=== PATIENT | male | born 1960 | race African-American/Black ===

== ENCOUNTER 2016-04-01 02:59 | Emergency (ER) | payer OTHER ==
[~2016-04-01] VITALS: Ht 170.2 cm; Wt 75.3 kg
[~2016-04-01 02:59] MED LIST: ACETAMINOPHEN-1 EAC1 ORAL; AMITRIPTYLINE100 MG ORAL; AMLODIPINE BES2.5 MG ORAL; ATIVAN1 MG ORAL; BACTRIM DS TAB1 EAC1 ORAL; CEPHALEXIN500 MG ORAL; CIPRO500 MG PO; CIPROFLOXACIN500 M2 ORAL; CLEOCIN150 MG ORAL; COLACE100 MG ORAL; COMPAZINE10 MG ORAL; FAMOTIDINE20 MG ORAL; FLEET ENEMA133 ML RECTAL; GABAPENTIN100 MG ORAL; HYDROCODON-ACE1 EA15 ORAL; KEFLEX500 MG ORAL; LORAZEPAM1 MG ORAL; LORAZEPAM2 MG ORAL; NEURONTIN300 MG ORAL; NITROFURANTOIN100 M2 ORAL; NORCO 10/3251 EA ORAL; NORCO 5-325 TA1 EACH ORAL; ONDANSETRON ODT4 MG ORAL; PHENERGAN25 M1 ORAL; RANITIDINE HCL150 MG ORAL; TRAMADOL HCL50 MG ORAL; TYLENOL EXTRA500 MG ORAL; TYLENOL WITH C1 EAC2 PO; ZOFRAN ODT4 MG ORAL; [UNRECOGNIZED DRUG - OTHER] MC
[2016-04-01] MEDS ORDERED: LYRICA75 M1 ORAL (03:15)
[2016-04-01] MEDS ORDERED: TIZANIDINE HCL4 MG ORAL (03:15)
[2016-04-01] MEDS ORDERED: Morphine Sulfate 10mg/ml Inj IM ONE (03:45)
--- NOTE | 2016-04-01 03:50 | Emergency Room Report ---
History of Present Illness General Chief Complaint: Pain Source: Patient Present Illness HPI Patient present with complaints of neuropathy and pain to both of his legs Patient also has lower back pain and feels that he likely has a bladder infection Patient states that he gets an infection every 6 months He has difficulty tried to get a clean catheter Denies any vomiting denies any chest pain or shortness of breath pain to the lower back as 6/10 sharp and crampy in nature There is also sensation of burning with catheterization Allergies: Coded Allergies: OMEPRAZOLE (Unverified Allergy, Unknown, 01/23/15) Patient History Past Medical History: see triage record Pertinent Family History: none Reviewed Nursing Documentation: PMH: Agreed, PSxH: Agreed Nursing Documentation-PMH Hx Hypertension: Yes Hx Cancer: No Hx Gastrointestinal Problems: No Hx Weakness: Yes - BLE Review of Systems All Other Systems: negative except mentioned in HPI Physical Exam Vital Signs Date Time Temp Pulse Resp B/P Pulse Ox O2 Delivery O2 Flow Rate FiO2 04/01/16 03:02 98.8 96 18 185/74 97 Room Air Sp02 EP Interpretation: reviewed, normal General Appearance: well appearing, no apparent distress Head: normocephalic, atraumatic Eyes: bilateral eye EOMI, bilateral eye PERRL ENT: hearing grossly normal, normal pharynx, TMs + canals normal, uvula midline Neck: full range of motion, supple, no meningismus, no bony tend Respiratory: lungs clear, normal breath sounds, no rhonchi, no respiratory distress, no retraction, no accessory muscle use Cardiovascular #1: normal peripheral pulses, regular rate, rhythm, no edema, no gallop, no JVD, no murmur Gastrointestinal: normal bowel sounds, non tender, soft, no mass, no organomegaly, non-distended, no guarding, no hernia, no pulsatile mass, no rebound Genitourinary: no CVA tenderness Musculoskeletal: other - patient is paraplegic Neurologic: oriented x3, responsive, sensory intact Psychiatric: mood/affect normal Skin: normal color, no rash, warm/dry, palpation normal Lymphatic: normal inspection, no adenopathy Medical Decision Making Diagnostic Impression: Primary Impression: Neurogenic bladder Additional Impression: Neuropathy ER Course Multiple differentials are considered Patient's urine sample however is clean without any evidence of blood or infectious pathology Patient had been given IM injection of pain medication is doing significantly better I did also place the patient on Neurontin to see how this would help with his neuropathic pain The patient requires close outpatient follow Labs Test 04/01/16 03:45 Urine Color Pale yellow Urine Appearance Clear Urine pH 6 (4.5-8.0) Urine Specific [place] 1.010 (1.005-1.035) Urine Protein Negative (NEGATIVE) Urine Glucose (UA) Negative (NEGATIVE) Urine Ketones Negative (NEGATIVE) Urine Occult Blood Negative (NEGATIVE) Urine Nitrite Negative (NEGATIVE) Urine Bilirubin Negative (NEGATIVE) Urine Urobilinogen Normal MG/DL (0.0-1.0) Urine Leukocyte Esterase Negative (NEGATIVE) Last Vital Signs Date Time Temp Pulse Resp B/P Pulse Ox O2 Delivery O2 Flow Rate FiO2 04/01/16 03:02 98.8 96 18 185/74 97 Room Air Status: improved Disposition: HOME, SELF-CARE Condition: Improved Scripts Gabapentin* (NEURONTIN*) 100 Mg Capsule 300 MG ORAL THREE TIMES A DAY for 7 Days, CAP Prov: RODNEY JUNIOR D.O. 04/01/16 Referrals: NON PHYSICIAN (PCP) Additional Instructions: Patient is provided with the discharge instructions notified to follow up with primary doctor in the next 2-3 days otherwise return to the er with any worsening symptoms. RODNEY JUNIOR D.O. Apr 01, 2016 03:50
[2016-04-01 03:58] LABS: APPEARANCE,URINE CLEAR; KETONES,URINE NEGATIVE (NEGATIVE); LEUKOCYTE ESTERASE ,URINE NEGATIVE (NEGATIVE); NITRITE,URINE NEGATIVE (NEGATIVE); PH,URINE 6 (4.5-8.0); PROTEIN,URINE NEGATIVE (NEGATIVE); UROBILINOGEN,URINE NORMAL MG/DL (0.0-1.0)
[2016-04-01] MEDS ORDERED: NEURONTIN100 MG ORAL (04:27)
[2016-04-01 04:34] VITALS: BP 185/74
== END 2016-04-01 04:36 | disposition home or self-care (01) ==
LOC: EMR 03:45
DX: G62.9 Polyneuropathy, unspecified (principal); N31.9 Neuromuscular dysfunction of bladder, unspecified; I10 Essential (primary) hypertension; Z88.8 Allergy status to other drugs, medicaments and biological substances
CPT/HCPCS: 81003; 96372; 99283; J2270

== ENCOUNTER 2016-04-11 21:59 | Emergency (ER) | payer OTHER ==
[~2016-04-11] VITALS: Ht 170.2 cm; Wt 75.3 kg
[~2016-04-11 21:59] MED LIST changes: +LYRICA75 M1 ORAL; +NEURONTIN100 MG ORAL; +TIZANIDINE HCL4 MG ORAL
[2016-04-11 22:13] VITALS: BP 125/65
[2016-04-11] MEDS ORDERED: Ketorolac 60mg Inj IM ONE (22:45)
[2016-04-11] MEDS ORDERED: VALIUM5 MG ORAL (22:55)
[2016-04-11 23:03] VITALS: BP 132/77
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
== END 2016-04-11 23:03 | disposition home or self-care (01) ==
LOC: EMR 22:36
DX: M62.838 Other muscle spasm (principal); M79.605 Pain in left leg; M79.604 Pain in right leg; I10 Essential (primary) hypertension
CPT/HCPCS: 96372; 99283

== ENCOUNTER 2016-05-22 18:40 | Inpatient (IN) | payer OTHER ==
[~2016-05-22] VITALS: Ht 170.2 cm; Wt 80.7 kg
[~2016-05-22 18:40] MED LIST changes: +VALIUM5 MG ORAL
[2016-05-22 19:05] VITALS: BP 112/76
[2016-05-22] MEDS ORDERED: Morphine Sulfate 4mg/ml Inj IVP ONE ×2 (19:15→20:45)
[2016-05-22] MEDS ORDERED: Ketorolac 30mg Inj IV ONE (19:15)
[2016-05-22] MEDS ORDERED: LORazepam Inj 2mg/ml 1ml IV ONE (19:15)
[2016-05-22 20:27] LABS: MEAN CORPUSCULAR HEMOGLOBIN 32.5 PG (27.0-31.0); MEAN CORPUSCULAR HGB CONC 33.8 G/DL (32.0-36.0); MEAN CORPUSCULAR VOLUME 96 FL (80-99); MEAN PLATELET VOLUME 7.9 FL (6.5-10.1); PLATELET COUNT 198 K/UL (150-450); RED BLOOD COUNT 3.72 M/UL (4.70-6.10); RED CELL DISTRIBUTION WIDTH 17.7 % (11.6-14.8)
[2016-05-22 20:33] LABS: ALANINE AMINOTRANSFERASE 16 U/L (3-41); ALBUMIN/GLOBULIN RATIO 0.9 (1.0-2.7); ANION GAP 18 (5-15); ASPARTATE AMINO TRANSFERASE 19 U/L (5-40); CALCIUM 9.3 mg/dL (8.6-10.2); CARBON DIOXIDE 20 mEQ/L (20-30); CHLORIDE 99 mEQ/L (98-107); GLOMERULAR FILTRATION RATE > 60 mL/min (>60); HEMOLYSIS 14; LIPASE 19 U/L (< 60); POTASSIUM 4.5 mEQ/L (3.4-4.9); SODIUM 137 mEQ/L (135-145); TOTAL PROTEIN 7.7 g/dL (6.6-8.7)
[2016-05-22 20:35] LABS: WHITE BLOOD COUNT 24.2 K/UL (4.8-10.8)
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
[2016-05-22 21:27] LABS: APPEARANCE,URINE CLEAR; KETONES,URINE NEGATIVE (NEGATIVE); LEUKOCYTE ESTERASE ,URINE NEGATIVE (NEGATIVE); NITRITE,URINE NEGATIVE (NEGATIVE); PH,URINE 6 (4.5-8.0); PROTEIN,URINE NEGATIVE (NEGATIVE); UROBILINOGEN,URINE NORMAL MG/DL (0.0-1.0)
[2016-05-22 22:12] LABS: BAND NEUTROPHILS % (MANUAL) 12 % (0-8); EOSINOPHILS % (MANUAL) 3 % (0-3); LYMPHOCYTES % (MANUAL) 26 % (20-45); METAMYELOCYTES % 2 % (0-0); MYELOCYTES % 2 % (0-0); NEUTROPHILS % (MANUAL) 53 % (45-75); TOTAL CELLS COUNTED 100
[2016-05-22 22:13] LABS: ANISOCYTOSIS 1+; MACROCYTES 1+; POLYCHROMASIA 1+; REACTIVE LYMPHOCYTES 2+
[2016-05-22 22:14] LABS: BASOPHILS % (MANUAL) 0 % (0-2); PLATELET ESTIMATE ADEQUATE
[2016-05-22] MEDS ORDERED: metroNIDAZOLE 500mg 100 ML IVPB ONE (22:30)
[2016-05-22] MEDS ORDERED: Cefepime HCl 1 GM in D5W 55 ML IVPB ONE (22:30)
[2016-05-22 23:03] VITALS: BP 122/73
[2016-05-23] VITALS (7 sets, daily range): BP systolic 112–149; BP diastolic 66–99
[2016-05-23] MEDS ORDERED: Cefepime 1gm vial ONE (00:08)
[2016-05-23] MEDS ORDERED: UNOBMED (00:55)
[2016-05-23] MEDS: HYDROmorphone 1mg/ml Carpuject IVP PRN ×3 (08:08→18:30)
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
[2016-05-23 12:30] LABS: OTHERS PATHOLOGIST COMMENT
--- NOTE | 2016-05-23 13:46 | Cardiology Report ---
APPROVED REPORT EKG Measurement Heart [id number] Normal sinus rhythm Normal ECG
[2016-05-23] MEDS ORDERED: NORVASC2.5 MG ORAL (14:36)
[2016-05-23] MEDS ORDERED: TIZANIDINE HCL4 MG ORAL (14:41)
[2016-05-23] MEDS ORDERED: LYRICA200 MG ORAL (14:41)
[2016-05-23] MEDS ORDERED: LORAZEPAM2 MG/1 M4 ORAL (14:41)
[2016-05-23] MEDS ORDERED: FAMOTIDINE20 MG ORAL (14:41)
[2016-05-23] MEDS ORDERED: AMITRIPTYLINE100 MG ORAL (14:41)
--- NOTE | 2016-05-23 17:04 | Nephrology Progress Note ---
Assessment/Plan Problem List: (1) Neuropathy (2) Neurogenic bladder (3) Muscle spasms of both lower extremities (4) Sepsis Plan H&P DICTATED #[id number] Subjective Constitutional: Denies: chills, diaphoresis, fever, malaise, no symptoms, other , weakness HEENT: Denies: blurred vision, double vision, ear discharge, ear pain, eye pain , mouth pain, mouth swelling, no symptoms, nose congestion, nose pain, other, tearing, throat pain, throat swelling Genitourinary: Denies: burning, discharge, flank pain, frequency, hematuria, incontinence, no symptoms, other, pain, urgency Neurologic/Psychiatric: Denies: anxiety, depressed, emotional problems, headache, no symptoms, numbness, other, paresthesia, pre-existing deficit, seizure, tingling, tremors, weakness Objective Objective Last 24 Hour Vital Signs Date Time Temp Pulse Resp B/P Pulse Ox O2 Delivery O2 Flow Rate FiO2 05/23/16 16:00 97.0 72 20 146/93 97 Room Air 05/23/16 11:44 97.4 78 16 149/66 95 Room Air 05/23/16 07:44 98.1 76 14 138/92 96 Room Air 05/23/16 04:00 97.7 64 18 112/77 98 Room Air 05/23/16 01:31 97.7 74 19 132/89 96 Room Air 05/23/16 01:00 80 16 126/74 100 Room Air 05/23/16 01:00 98.6 80 16 126/74 100 Room Air 05/23/16 00:42 99.4 05/22/16 23:03 99.4 84 17 122/73 95 Room Air 05/22/16 19:05 99.5 89 23 112/76 100 Room Air 05/22/16 18:55 100.9 95 16 137/80 96 Room Air Intake and Output 05/22/16 05/23/16 19:00 07:00 Intake Total 300 ml Balance 300 ml Intake Oral 250 ml IV Total 50 ml Laboratory Tests 05/22/16 20:00: White Blood Count 24.2*H, Red Blood Count 3.72L, Hemoglobin 12.1L, Hematocrit 35.8L, Mean Corpuscular Volume 96, Mean Corpuscular Hemoglobin 32.5H, Mean Corpuscular Hemoglobin Concent 33.8, Red Cell Distribution Width 17.7H, Platelet Count 198, Mean Platelet Volume 7.9, Neutrophils (%) (Auto) , Lymphocytes (%) (Auto) , Monocytes (%) (Auto) , Eosinophils (%) (Auto) , Basophils (%) (Auto) , Differential Total Cells Counted 100, Neutrophils % ( Manual) 53, Lymphocytes % (Manual) 26, Monocytes % (Manual) 2, Eosinophils % ( Manual) 3, Basophils % (Manual) 0, Metamyelocytes % 2H, Myelocytes % 2H, Band Neutrophils 12H, Reactive Lymphocytes 2+, Other Cell Type Pathologist comment, Platelet Estimate Adequate, Platelet Morphology , Giant Platelets Occasional, Polychromasia 1+, Anisocytosis 1+, Macrocytosis 1+, Sodium Level 137, Potassium Level 4.5, Chloride Level 99, Carbon Dioxide Level 20, Anion Gap 18H, Blood Urea Nitrogen 13, Creatinine 1.0, Estimat Glomerular Filtration Rate > 60, Glucose Level 104, Calcium Level 9.3, Magnesium Level 2.0, Total Bilirubin 0.9, Aspartate Amino Transf (AST/SGOT) 19, Alanine Aminotransferase (ALT/SGPT) 16, Alkaline Phosphatase 98, Total Creatine Kinase 64, Total Protein 7.7, Albumin 3.8, Globulin 3.9, Albumin/Globulin Ratio 0.9L, Lipase 19 05/22/16 20:30: Urine Color Pale yellow, Urine Appearance Clear, Urine pH 6, Urine Specific [place] 1.005, Urine Protein Negative, Urine Glucose (UA) Negative, Urine Ketones Negative, Urine Occult Blood Negative, Urine Nitrite Negative, Urine Bilirubin Negative, Urine Urobilinogen Normal, Urine Leukocyte Esterase Negative 05/22/16 21:50: Lactate Dehydrogenase 219 Height (Feet): 5 Height (Inches): 7.00 Weight (Pounds): 178 General Appearance: no apparent distress EENT: normal ENT inspection Neck: normal alignment, supple, normal inspection Cardiovascular: normal rate, regular rhythm, no JVD Respiratory/Chest: lungs clear, normal breath sounds Abdomen: non tender, soft Extremities: normal range of motion, non-tender Neurologic: alert, oriented x 3, responsive, normal mood/affect Mar Antoine N.P. May 23, 2016 17:04
[2016-05-24] VITALS: BP 127/79
[2016-05-24] MEDS: HYDROmorphone 1mg/ml Carpuject IVP PRN ×4 (00:23→19:05)
[2016-05-24 04:00] VITALS: BP 143/82
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
[2016-05-24 07:44] VITALS: BP 128/78
[2016-05-24 08:01] LABS: MEAN CORPUSCULAR HEMOGLOBIN 30.3 PG (27.0-31.0); MEAN CORPUSCULAR HGB CONC 31.9 G/DL (32.0-36.0); MEAN CORPUSCULAR VOLUME 95 FL (80-99); MEAN PLATELET VOLUME 7.8 FL (6.5-10.1); PLATELET COUNT 255 K/UL (150-450); RED BLOOD COUNT 3.94 M/UL (4.70-6.10); RED CELL DISTRIBUTION WIDTH 17.7 % (11.6-14.8)
[2016-05-24 08:08] LABS: ANION GAP 16 (5-15); CALCIUM 9.6 mg/dL (8.6-10.2); CARBON DIOXIDE 26 mEQ/L (20-30); CHLORIDE 99 mEQ/L (98-107); GLOMERULAR FILTRATION RATE > 60 mL/min (>60); HEMOLYSIS 3; POTASSIUM 4.5 mEQ/L (3.4-4.9); SODIUM 141 mEQ/L (135-145)
[2016-05-24 08:29] LABS: WHITE BLOOD COUNT 22.1 K/UL (4.8-10.8)
[2016-05-24] MEDS ORDERED: Anusol HC Supp RECTAL PRN (11:00)
[2016-05-24 11:34] VITALS: BP 132/72
--- NOTE | 2016-05-24 11:44 | Diagnostic Imaging Report ---
Indication: Cough Technique: XRAY CHEST 1 V Comparison: 08/29/15 Findings: Cardiomediastinal silhouette is stable. There is no consolidation or pleural effusion. Osseous structures are stable. Metallic density projects over the right chest. Impression: No acute cardiopulmonary disease.
[2016-05-24 12:30] LABS: BAND NEUTROPHILS % (MANUAL) 14 % (0-8); EOSINOPHILS % (MANUAL) 4 % (0-3); LYMPHOCYTES % (MANUAL) 10 % (20-45); METAMYELOCYTES % 5 % (0-0); NEUTROPHILS % (MANUAL) 65 % (45-75); TOTAL CELLS COUNTED 100
[2016-05-24 12:32] LABS: ANISOCYTOSIS 1+; BASOPHILS % (MANUAL) 0 % (0-2); PLATELET ESTIMATE ADEQUATE; PLATELET MORPHOLOGY NORMAL; POLYCHROMASIA 1+
[2016-05-24 12:42] LABS: APPEARANCE,URINE SLIGHTLY CLOUDY; KETONES,URINE NEGATIVE (NEGATIVE); NITRITE,URINE NEGATIVE (NEGATIVE); PH,URINE 5 (4.5-8.0); PROTEIN,URINE 1+ (NEGATIVE)
[2016-05-24 12:43] LABS: BACTERIA,URINE FEW /HPF; ICTOTEST NEGATIVE; LEUKOCYTE ESTERASE ,URINE 1+ (NEGATIVE); RBC,URINE 0-2 /HPF (0 - 0); SQUAMOUS EPITHELIAL CELL,UR FEW /LPF (NONE/OCC); UROBILINOGEN,URINE 8 MG/DL (0.0-1.0)
[2016-05-24] MEDS: metroNIDAZOLE 500mg tab ORAL SCH ×2 (12:51→22:52)
[2016-05-24] MEDS: Cefepime HCl 1 GM in D5W 55 ML IVPB SCH (12:51)
[2016-05-24] MEDS: Vancomycin 1 GM in D5W 275 ML IVPB SCH (13:53)
[2016-05-24 16:11] VITALS: BP 126/75
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
[2016-05-24 20:00] VITALS: BP 131/82
[2016-05-25] VITALS (7 sets, daily range): BP systolic 105–136; BP diastolic 53–77
[2016-05-25] MEDS: HYDROmorphone 1mg/ml Carpuject IVP PRN ×3 (00:14→10:14)
[2016-05-25] MEDS: Cefepime HCl 1 GM in D5W 55 ML IVPB SCH ×2 (00:15→12:48)
[2016-05-25] MEDS: Vancomycin 1 GM in D5W 275 ML IVPB SCH ×2 (01:16→13:41)
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
[2016-05-25] MEDS: metroNIDAZOLE 500mg tab ORAL SCH ×3 (06:28→21:17)
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
[2016-05-25] MEDS: Docusate 100mg cap ORAL SCH ×2 (12:48→17:15)
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
[2016-05-25] MEDS: HYDROmorphone 1mg/ml Carpuject SUBQ PRN (20:05)
[2016-05-25] MEDS: Miralax 17gm pkt ORAL SCH (21:17)
[2016-05-26] VITALS: BP 121/79
[2016-05-26] MEDS: Cefepime HCl 1 GM in D5W 55 ML IVPB SCH ×2 (01:46→14:20)
[2016-05-26] MEDS ORDERED: Vancomycin 1gm inj IVPB ONE (02:14)
[2016-05-26] MEDS: Vancomycin 1 GM in D5W 275 ML IVPB SCH ×3 (02:31→18:00)
[2016-05-26] MEDS: HYDROmorphone 1mg/ml Carpuject SUBQ PRN ×3 (02:46→13:13)
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
[2016-05-26 04:00] VITALS: BP 123/77
[2016-05-26] MEDS: metroNIDAZOLE 500mg tab ORAL SCH ×3 (05:37→22:00)
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
[2016-05-26 07:18] LABS: MEAN CORPUSCULAR HEMOGLOBIN 30.1 PG (27.0-31.0); MEAN CORPUSCULAR HGB CONC 32.1 G/DL (32.0-36.0); MEAN CORPUSCULAR VOLUME 94 FL (80-99); MEAN PLATELET VOLUME 7.4 FL (6.5-10.1); PLATELET COUNT 266 K/UL (150-450); RED BLOOD COUNT 4.13 M/UL (4.70-6.10); RED CELL DISTRIBUTION WIDTH 16.7 % (11.6-14.8)
[2016-05-26 07:20] LABS: WHITE BLOOD COUNT 22.5 K/UL (4.8-10.8)
[2016-05-26 07:28] LABS: ALANINE AMINOTRANSFERASE 12 U/L (3-41); ALBUMIN/GLOBULIN RATIO 0.9 (1.0-2.7); ANION GAP 16 (5-15); ASPARTATE AMINO TRANSFERASE 15 U/L (5-40); CALCIUM 9.5 mg/dL (8.6-10.2); CARBON DIOXIDE 24 mEQ/L (20-30); CHLORIDE 98 mEQ/L (98-107); GLOMERULAR FILTRATION RATE > 60 mL/min (>60); SODIUM 138 mEQ/L (135-145); TOTAL PROTEIN 7.7 g/dL (6.6-8.7)
[2016-05-26 07:51] LABS: BILIRUBIN,DIRECT 0.3 mg/dL (0.1-0.3)
[2016-05-26 07:59] VITALS: BP 122/74
[2016-05-26 08:01] LABS: HEMOLYSIS 4; IRON 20 ug/dL (59-158); TOTAL IRON BINDING CAPACITY 287 ug/dL (250-400)
[2016-05-26 08:30] LABS: BAND NEUTROPHILS % (MANUAL) 8 % (0-8); BASOPHILS % (MANUAL) 0 % (0-2); EOSINOPHILS % (MANUAL) 2 % (0-3); LYMPHOCYTES % (MANUAL) 10 % (20-45); METAMYELOCYTES % 2 % (0-0); MYELOCYTES % 2 % (0-0); NEUTROPHILS % (MANUAL) 66 % (45-75); PLATELET ESTIMATE ADEQUATE; PLATELET MORPHOLOGY NORMAL; TOTAL CELLS COUNTED 100
[2016-05-26] MEDS: Docusate 100mg cap ORAL SCH ×2 (09:00→17:28)
[2016-05-26 11:47] VITALS: BP 102/58
[2016-05-26] MEDS: Micafungin 100 MG in NS 110 ML IVPB SCH (13:00)
--- NOTE | 2016-05-26 14:03 | Nephrology Progress Note ---
Assessment/Plan Problem List: (1) Neuropathy (2) Neurogenic bladder (3) Muscle spasms of both lower extremities (4) Sepsis Plan Continue pain management Cultures pending Monitor counts Monitor Temp ID following Neuro following AM labs Subjective Constitutional: Denies: chills, diaphoresis, fever, malaise, no symptoms, other , weakness HEENT: Denies: blurred vision, double vision, ear discharge, ear pain, eye pain , mouth pain, mouth swelling, no symptoms, nose congestion, nose pain, other, tearing, throat pain, throat swelling Genitourinary: Denies: burning, discharge, flank pain, frequency, hematuria, incontinence, no symptoms, other, pain, urgency Neurologic/Psychiatric: Denies: anxiety, depressed, emotional problems, headache, no symptoms, numbness, other, paresthesia, pre-existing deficit, seizure, tingling, tremors, weakness Subjective In bed, in no distress, caregiver at bedside Objective Objective Last 24 Hour Vital Signs Date Time Temp Pulse Resp B/P Pulse Ox O2 Delivery O2 Flow Rate FiO2 05/26/16 11:47 98.4 74 21 102/58 97 Room Air 05/26/16 10:21 98.2 05/26/16 09:20 73 122/74 05/26/16 09:02 98.2 05/26/16 07:59 98.2 73 21 122/74 99 Room Air 05/26/16 04:00 98.1 79 18 123/77 97 Room Air 05/26/16 00:00 99.9 83 17 121/79 Room Air 05/25/16 22:52 98.1 05/25/16 21:25 101.8 76 18 115/57 98 Room Air 05/25/16 20:00 97.7 77 18 131/68 96 Room Air 05/25/16 16:00 99.9 72 18 136/77 98 Room Air Intake and Output 05/25/16 05/26/16 19:00 07:00 Intake Total 855 ml 1142.416 ml Balance 855 ml 1142.416 ml Intake Oral 800 ml 720 ml IV Total 55 ml 422.416 ml # Voids 2 5 Laboratory Tests 05/26/16 00:30: Vancomycin Level Trough 6.2 05/26/16 06:30: White Blood Count 22.5*H, Red Blood Count 4.13L, Hemoglobin 12.4L, Hematocrit 38.7L, Mean Corpuscular Volume 94, Mean Corpuscular Hemoglobin 30.1, Mean Corpuscular Hemoglobin Concent 32.1, Red Cell Distribution Width 16.7H, Platelet Count 266, Mean Platelet Volume 7.4, Neutrophils (%) (Auto) , Lymphocytes (%) (Auto) , Monocytes (%) (Auto) , Eosinophils (%) (Auto) , Basophils (%) (Auto) , Differential Total Cells Counted 100, Neutrophils % ( Manual) 66, Lymphocytes % (Manual) 10L, Monocytes % (Manual) 10, Eosinophils % ( Manual) 2, Basophils % (Manual) 0, Metamyelocytes % 2H, Myelocytes % 2H, Band Neutrophils 8, Platelet Estimate Adequate, Platelet Morphology Normal, Red Blood Cell Morphology Normal, Sodium Level 138, Potassium Level 4.0, Chloride Level 98, Carbon Dioxide Level 24, Anion Gap 16H, Blood Urea Nitrogen 11, Creatinine 1.0, Estimat Glomerular Filtration Rate > 60, Glucose Level 116H, Calcium Level 9.5, Iron Level 20L, Total Iron Binding Capacity 287, Percent Iron Saturation 7L, Unsaturated Iron Binding 267, Total Bilirubin 1.5H, Direct Bilirubin 0.3, Aspartate Amino Transf (AST/SGOT) 15, Alanine Aminotransferase ( ALT/SGPT) 12, Alkaline Phosphatase 87, Total Protein 7.7, Albumin 3.7, Globulin 4.0, Albumin/Globulin Ratio 0.9L, Carcinoembryonic Antigen 2.6, Vitamin B12 Level > 2000H, Folate [Pending] Height (Feet): 5 Height (Inches): 7.00 Weight (Pounds): 178 General Appearance: no apparent distress, alert EENT: normal ENT inspection Neck: normal alignment, normal inspection Cardiovascular: normal rate, regular rhythm, no JVD Respiratory/Chest: normal breath sounds, no respiratory distress Abdomen: non tender, soft, no organomegaly, no mass Genitourinary/Rectal: other - suprapubic catheter Extremities: non-tender, normal inspection Neurologic: alert, oriented x 3, responsive, normal mood/affect Mar Antoine N.P. May 26, 2016 14:03
[2016-05-26 16:00] VITALS: BP 140/84
[2016-05-26] MEDS: Heparin 2000 units/Ns 1000ml INJ ONE (16:00)
[2016-05-26] MEDS ORDERED: Lidocaine 1% Plain 30 ml INJ ONE (16:00)
[2016-05-26] MEDS ORDERED: Sodium Bicarbonate 8.4% 50ml Inj IV ONE (16:00)
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
--- NOTE | 2016-05-26 17:02 | GI Progress Note ---
Assessment/Plan Problems: (1) Rectal pain ICD Codes: K62.89 - Other specified diseases of anus and rectum SNOMED: 04350802 (2) Abdominal pain ICD Codes: R10.9 - Unspecified abdominal pain SNOMED: 73425343 (3) Mamie-rectal abscess ICD Codes: K61.1 - Rectal abscess SNOMED: 73559052 Status: stable Status Narrative Discussed with Dr. Madden. Assessment/Plan APCT >> rectal wall thickening colonoscopy this Thursday if still inpatient - CLD tomorrow iron deficient >> venofer colace + miralax, consider lactulose if still constipated anusol HC fu labs Subjective Gastrointestinal/Abdominal: Reports: other - rectal pain Objective Last 24 Hour Vital Signs Date Time Temp Pulse Resp B/P Pulse Ox O2 Delivery O2 Flow Rate FiO2 05/26/16 14:07 98.4 05/26/16 13:43 98.4 05/26/16 11:47 98.4 74 21 102/58 97 Room Air 05/26/16 09:20 73 122/74 05/26/16 07:59 98.2 73 21 122/74 99 Room Air 05/26/16 04:00 98.1 79 18 123/77 97 Room Air 05/26/16 00:00 99.9 83 17 121/79 Room Air 05/25/16 22:52 98.1 05/25/16 21:25 101.8 76 18 115/57 98 Room Air 05/25/16 20:00 97.7 77 18 131/68 96 Room Air Intake and Output 05/25/16 05/26/16 19:00 07:00 Intake Total 855 ml 1142.416 ml Balance 855 ml 1142.416 ml Intake Oral 800 ml 720 ml IV Total 55 ml 422.416 ml # Voids 2 5 Laboratory Tests Test 05/26/16 00:30 05/26/16 06:30 Vancomycin Level Trough 6.2 ug/mL (5.0-12.0) White Blood Count 22.5 K/UL (4.8-10.8) *H Red Blood Count 4.13 M/UL (4.70-6.10) L Hemoglobin 12.4 G/DL (14.2-18.0) L Hematocrit 38.7 % (42.0-52.0) L Mean Corpuscular Volume 94 FL (80-99) Mean Corpuscular Hemoglobin 30.1 PG (27.0-31.0) Mean Corpuscular Hemoglobin Concent 32.1 G/DL (32.0-36.0) Red Cell Distribution Width 16.7 % (11.6-14.8) H Platelet Count 266 K/UL (150-450) Mean Platelet Volume 7.4 FL (6.5-10.1) Neutrophils (%) (Auto) % (45.0-75.0) Lymphocytes (%) (Auto) % (20.0-45.0) Monocytes (%) (Auto) % (1.0-10.0) Eosinophils (%) (Auto) % (0.0-3.0) Basophils (%) (Auto) % (0.0-2.0) Differential Total Cells Counted 100 Neutrophils % (Manual) 66 % (45-75) Lymphocytes % (Manual) 10 % (20-45) L Monocytes % (Manual) 10 % (1-10) Eosinophils % (Manual) 2 % (0-3) Basophils % (Manual) 0 % (0-2) Metamyelocytes % 2 % (0-0) H Myelocytes % 2 % (0-0) H Band Neutrophils 8 % (0-8) Platelet Estimate Adequate Platelet Morphology Normal Red Blood Cell Morphology Normal Sodium Level 138 mEQ/L (135-145) Potassium Level 4.0 mEQ/L (3.4-4.9) Chloride Level 98 mEQ/L (98-107) Carbon Dioxide Level 24 mEQ/L (20-30) Anion Gap 16 (5-15) H Blood Urea Nitrogen 11 mg/dL (7-23) Creatinine 1.0 mg/dL (0.7-1.2) Estimat Glomerular Filtration Rate > 60 mL/min (>60) Glucose Level 116 mg/dL (74-106) H Calcium Level 9.5 mg/dL (8.6-10.2) Iron Level 20 ug/dL (59-158) L Total Iron Binding Capacity 287 ug/dL (250-400) Percent Iron Saturation 7 % (15-50) L Unsaturated Iron Binding 267 ug/dL (112-346) Total Bilirubin 1.5 mg/dL (0.0-1.2) H Direct Bilirubin 0.3 mg/dL (0.1-0.3) Aspartate Amino Transf (AST/SGOT) 15 U/L (5-40) Alanine Aminotransferase (ALT/SGPT) 12 U/L (3-41) Alkaline Phosphatase 87 U/L (40-129) Total Protein 7.7 g/dL (6.6-8.7) Albumin 3.7 g/dL (3.5-5.2) Globulin 4.0 g/dL Albumin/Globulin Ratio 0.9 (1.0-2.7) L Carcinoembryonic Antigen 2.6 ng/mL Vitamin B12 Level > 2000 pg/mL (211-946) H Folate Pending Height (Feet): 5 Height (Inches): 7.00 Weight (Pounds): 178 General Appearance: no apparent distress, alert Cardiovascular: normal rate Respiratory/Chest: normal breath sounds, no respiratory distress Abdominal Exam: normal bowel sounds, non tender, soft Extremities: non-tender Nancy Fleming N.P. May 26, 2016 17:02
[2016-05-26] MEDS: Norco 10mg/325mg tab ORAL PRN (17:28)
[2016-05-26 20:00] VITALS: BP 127/73
[2016-05-26] MEDS: Miralax 17gm pkt ORAL SCH (21:00)
[2016-05-26] MEDS: HYDROmorphone 1mg/ml Carpuject IVP PRN (21:40)
[2016-05-27] VITALS: BP 107/57
[2016-05-27] MEDS: Heparin 2000 units/Ns 1000ml INJ ONE
[2016-05-27] MEDS: Vancomycin 1 GM in D5W 275 ML IVPB SCH ×3 (00:40→18:11)
[2016-05-27 04:00] VITALS: BP 105/61
[2016-05-27] MEDS: metroNIDAZOLE 500mg tab ORAL SCH ×3 (04:58→22:21)
[2016-05-27] MEDS: HYDROmorphone 1mg/ml Carpuject IVP PRN ×4 (04:59→22:21)
[2016-05-27 07:23] LABS: MEAN CORPUSCULAR HEMOGLOBIN 29.5 PG (27.0-31.0); MEAN CORPUSCULAR HGB CONC 31.7 G/DL (32.0-36.0); MEAN CORPUSCULAR VOLUME 93 FL (80-99); MEAN PLATELET VOLUME 7.7 FL (6.5-10.1); PLATELET COUNT 294 K/UL (150-450); RED BLOOD COUNT 4.05 M/UL (4.70-6.10); RED CELL DISTRIBUTION WIDTH 17.4 % (11.6-14.8)
[2016-05-27 07:27] LABS: WHITE BLOOD COUNT 22.5 K/UL (4.8-10.8)
[2016-05-27 07:30] LABS: ANION GAP 17 (5-15); CALCIUM 9.4 mg/dL (8.6-10.2); CARBON DIOXIDE 23 mEQ/L (20-30); CHLORIDE 98 mEQ/L (98-107); GLOMERULAR FILTRATION RATE > 60 mL/min (>60); HEMOLYSIS 12; POTASSIUM 4.5 mEQ/L (3.4-4.9); SODIUM 138 mEQ/L (135-145)
[2016-05-27 08:14] VITALS: BP 109/58
[2016-05-27] MEDS: Norco 10mg/325mg tab ORAL PRN (09:05)
[2016-05-27] MEDS: Docusate 100mg cap ORAL SCH ×2 (09:06→18:10)
[2016-05-27 10:04] LABS: BAND NEUTROPHILS % (MANUAL) 8 % (0-8); BASOPHILS % (MANUAL) 1 % (0-2); EOSINOPHILS % (MANUAL) 1 % (0-3); LYMPHOCYTES % (MANUAL) 3 % (20-45); METAMYELOCYTES % 3 % (0-0); NEUTROPHILS % (MANUAL) 83 % (45-75); NUCLEATED RED BLOOD CELLS 1 /100 WBC; TOTAL CELLS COUNTED 100
[2016-05-27 10:06] LABS: PLATELET ESTIMATE ADEQUATE; PLATELET MORPHOLOGY NORMAL
[2016-05-27 10:07] LABS: ANISOCYTOSIS 1+
[2016-05-27 11:34] VITALS: BP 109/70
[2016-05-27] MEDS: Cefepime HCl 1 GM in D5W 55 ML IVPB SCH ×3 (12:16)
--- NOTE | 2016-05-27 13:06 | GI Progress Note ---
Assessment/Plan Problems: (1) Rectal pain ICD Codes: K62.89 - Other specified diseases of anus and rectum SNOMED: 47875114 (2) Abdominal pain ICD Codes: R10.9 - Unspecified abdominal pain SNOMED: 23046899 (3) Mamie-rectal abscess ICD Codes: K61.1 - Rectal abscess SNOMED: 20093860 Status: unchanged Status Narrative Discussed with Dr. Madden. Assessment/Plan APCT >> rectal wall thickening Pt scheduled for colonoscopy 05/28/15 - CLD, NPO @ [place] iron deficient >> venofer colace + miralax, consider lactulose if still constipated anusol HC fu labs Subjective Subjective rectal pain Objective Last 24 Hour Vital Signs Date Time Temp Pulse Resp B/P Pulse Ox O2 Delivery O2 Flow Rate FiO2 05/27/16 11:54 99.1 05/27/16 11:34 99.1 73 16 109/70 97 Room Air 05/27/16 10:04 97.9 05/27/16 10:04 97.9 05/27/16 09:06 68 109/58 05/27/16 08:14 97.9 68 14 109/58 98 Room Air 05/27/16 04:00 98.1 73 18 105/61 97 Room Air 05/27/16 00:00 97.9 74 18 107/57 98 Room Air 05/26/16 20:00 98.1 75 18 127/73 98 05/26/16 16:00 98.2 73 140/84 100 Room Air 05/26/16 13:43 98.4 Intake and Output 05/26/16 05/27/16 18:59 06:59 Intake Total 1035 ml 450 ml Balance 1035 ml 450 ml Intake Oral 760 ml 450 ml IV Total 275 ml # Voids 4 # Bowel Movements 1 Laboratory Tests Test 05/27/16 04:40 05/27/16 08:45 White Blood Count 22.5 K/UL (4.8-10.8) *H Red Blood Count 4.05 M/UL (4.70-6.10) L Hemoglobin 12.0 G/DL (14.2-18.0) L Hematocrit 37.7 % (42.0-52.0) L Mean Corpuscular Volume 93 FL (80-99) Mean Corpuscular Hemoglobin 29.5 PG (27.0-31.0) Mean Corpuscular Hemoglobin Concent 31.7 G/DL (32.0-36.0) L Red Cell Distribution Width 17.4 % (11.6-14.8) H Platelet Count 294 K/UL (150-450) Mean Platelet Volume 7.7 FL (6.5-10.1) Neutrophils (%) (Auto) % (45.0-75.0) Lymphocytes (%) (Auto) % (20.0-45.0) Monocytes (%) (Auto) % (1.0-10.0) Eosinophils (%) (Auto) % (0.0-3.0) Basophils (%) (Auto) % (0.0-2.0) Differential Total Cells Counted 100 Neutrophils % (Manual) 83 % (45-75) H Lymphocytes % (Manual) 3 % (20-45) L Monocytes % (Manual) 1 % (1-10) Eosinophils % (Manual) 1 % (0-3) Basophils % (Manual) 1 % (0-2) Metamyelocytes % 3 % (0-0) H Band Neutrophils 8 % (0-8) Nucleated Red Blood Cells 1 /100 WBC Platelet Estimate Adequate Platelet Morphology Normal Anisocytosis 1+ Sodium Level 138 mEQ/L (135-145) Potassium Level 4.5 mEQ/L (3.4-4.9) Chloride Level 98 mEQ/L (98-107) Carbon Dioxide Level 23 mEQ/L (20-30) Anion Gap 17 (5-15) H Blood Urea Nitrogen 11 mg/dL (7-23) Creatinine 1.0 mg/dL (0.7-1.2) Estimat Glomerular Filtration Rate > 60 mL/min (>60) Glucose Level 116 mg/dL (74-106) H Calcium Level 9.4 mg/dL (8.6-10.2) Vancomycin Level Trough 8.8 ug/mL (5.0-12.0) Height (Feet): 5 Height (Inches): 7.00 Weight (Pounds): 178 General Appearance: no apparent distress, alert Cardiovascular: normal rate Respiratory/Chest: normal breath sounds, no respiratory distress Abdominal Exam: normal bowel sounds, non tender, soft Nancy Fleming N.P. May 27, 2016 13:06
--- NOTE | 2016-05-27 13:34 | Diagnostic Imaging Report ---
Indications: Needs long-term IV access Technique: Ultrasound confirms patent compressible left brachial vein. Total sterile technique, including sterile probe cover and sterile gel, hat, mask,, sterile gown, large sterile drape, and preparation with 2% chlorhexidine utilized. Local anesthesia with 1% lidocaine. Under real-time ultrasound guidance, puncture brachial vein using 21-gauge needle, documented and archived, passage 0.018 guidewire under direct fluoroscopy, which was used to determine appropriate catheter length, exchange for 5 [place] peel-away sheath. 5 [place] Bard dual-lumen power PICC cut to 45 cm. It was inserted through the peel-away sheath. Peel-away sheath and guidewire removed. Catheter fixed to the skin. Both catheter ports aspirated and flushed. Patient tolerated procedure well, without immediate complication. Digital radiograph documents satisfactory catheter tip position, at the cavoatrial junction. Total fluoroscopy time zero point minutes. Total dose area product 2.5 dGycm2 Impression: Successful placement of left arm PICC under sonographic and fluoroscopic guidance, as described above.
[2016-05-27] MEDS: Micafungin 100 MG in NS 110 ML IVPB SCH (14:00)
[2016-05-27] MEDS ORDERED: NS 275ml ONE (15:02)
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
[2016-05-27 16:00] VITALS: BP 129/81
[2016-05-27] MEDS ORDERED: Nulytely 4L ORAL ONE (16:00)
[2016-05-27] MEDS ORDERED: Bisacodyl EC 5mg tab ORAL ONE (16:00)
[2016-05-27] MEDS: DiphenhydrAMINE 50mg/ml Inj IVP PRN ×2 (16:34→22:21)
[2016-05-27 20:00] VITALS: BP 112/65
[2016-05-27] MEDS: Miralax 17gm pkt ORAL SCH (20:43)
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
[2016-05-27] MEDS ORDERED: Fleet's Enema 133ml RECTAL ONE (23:30)
[2016-05-28] VITALS (10 sets, daily range): BP systolic 101–124; BP diastolic 55–79
[2016-05-28] MEDS: Cefepime HCl 1 GM in D5W 55 ML IVPB SCH ×2 (00:57→13:54)
[2016-05-28] MEDS: HYDROmorphone 1mg/ml Carpuject IVP PRN ×5 (02:22→21:43)
[2016-05-28] MEDS: Vancomycin 1 GM in D5W 275 ML IVPB SCH (02:22)
[2016-05-28] MEDS: DiphenhydrAMINE 50mg/ml Inj IVP PRN ×3 (04:17→21:43)
[2016-05-28] MEDS: metroNIDAZOLE 500mg tab ORAL SCH ×3 (06:00→21:05)
[2016-05-28 08:13] LABS: MEAN CORPUSCULAR HGB CONC 32.1 G/DL (32.0-36.0); MEAN CORPUSCULAR VOLUME 94 FL (80-99); MEAN PLATELET VOLUME 6.9 FL (6.5-10.1); PLATELET COUNT 318 K/UL (150-450); RED BLOOD COUNT 3.66 M/UL (4.70-6.10); RED CELL DISTRIBUTION WIDTH 16.3 % (11.6-14.8)
[2016-05-28 08:19] LABS: WHITE BLOOD COUNT 22.6 K/UL (4.8-10.8)
[2016-05-28 08:28] LABS: INR 1.4 (0.9-1.1); PROTHROMBIN TIME 14.1 SEC (9.30-11.50)
[2016-05-28 08:34] LABS: ANION GAP 14 (5-15); CALCIUM 9.1 mg/dL (8.6-10.2); CARBON DIOXIDE 26 mEQ/L (20-30); CHLORIDE 98 mEQ/L (98-107); GLOMERULAR FILTRATION RATE > 60 mL/min (>60); HEMOLYSIS 3; POTASSIUM 3.6 mEQ/L (3.4-4.9); SODIUM 138 mEQ/L (135-145)
[2016-05-28] MEDS: Docusate 100mg cap ORAL SCH ×2 (09:00→18:00)
[2016-05-28 10:18] LABS: ANISOCYTOSIS 1+; BAND NEUTROPHILS % (MANUAL) 11 % (0-8); BASOPHILS % (MANUAL) 0 % (0-2); EOSINOPHILS % (MANUAL) 2 % (0-3); LYMPHOCYTES % (MANUAL) 9 % (20-45); METAMYELOCYTES % 3 % (0-0); MYELOCYTES % 3 % (0-0); NEUTROPHILS % (MANUAL) 71 % (45-75); PLATELET ESTIMATE ADEQUATE; PLATELET MORPHOLOGY NORMAL; TOTAL CELLS COUNTED 100
[2016-05-28 10:19] LABS: POIKILOCYTOSIS 1+
[2016-05-28] MEDS ORDERED: NS 550ML IV ONE (12:15)
--- NOTE | 2016-05-28 12:17 | Pre-Procedure Note/Attestation ---
Pre-Procedure Note/Attestation Complete Prior to Procedure Planned Procedure: not applicable Procedure Narrative: colonoscopy Indications for Procedure Pre-Operative Diagnosis: anemia Attestation I attest that I discussed the nature of the procedure; its benefits; risks and complications; and alternatives (and the risks and benefits of such alternatives ), prior to the procedure, with the patient (or the patient's legal physician representative). I attest that, if there was a reasonable possibility of needing a blood transfusion, the patient (or the patient's legal physician representative) was given the [facility] standardized written summary, pursuant to the Matthew [place] Blood Safety Act ([place] Health and Safety Code # 1645, as amended). I attest that I re-evaluated the patient just prior to the surgery and that there has been no change in the patient's H&P, except as documented below: NAYAN VALLE May 28, 2016 12:17
--- NOTE | 2016-05-28 12:20 | Nephrology Progress Note ---
Assessment/Plan Problem List: (1) Neuropathy (2) Neurogenic bladder (3) Muscle spasms of both lower extremities (4) Sepsis Plan Continue pain management Cultures pending Monitor counts Monitor Temp ID following Neuro following f/u with GI recommendation AM labs Subjective Subjective Out of the unit to GI lab Objective Objective Last 24 Hour Vital Signs Date Time Temp Pulse Resp B/P Pulse Ox O2 Delivery O2 Flow Rate FiO2 05/28/16 08:00 97.7 75 21 124/79 99 Room Air 05/28/16 04:00 97.2 64 18 107/55 97 Room Air 05/28/16 00:00 96.2 84 18 112/67 96 Room Air 05/27/16 20:00 98.8 74 18 112/65 98 Room Air 05/27/16 16:00 97.7 78 16 129/81 100 Room Air 05/27/16 13:15 99.1 Intake and Output 05/27/16 05/28/16 19:00 07:00 Intake Total 1385 ml 1805.000 ml Balance 1385 ml 1805.000 ml Intake Oral 1000 ml 1200 ml IV Total 385 ml 605.000 ml # Voids 3 7 # Bowel Movements 6 Laboratory Tests 05/28/16 06:30: White Blood Count 22.6*H, Red Blood Count 3.66L, Hemoglobin 11.0L, Hematocrit 34.3L, Mean Corpuscular Volume 94, Mean Corpuscular Hemoglobin 30.0, Mean Corpuscular Hemoglobin Concent 32.1, Red Cell Distribution Width 16.3H, Platelet Count 318, Mean Platelet Volume 6.9, Neutrophils (%) (Auto) , Lymphocytes (%) (Auto) , Monocytes (%) (Auto) , Eosinophils (%) (Auto) , Basophils (%) (Auto) , Differential Total Cells Counted 100, Neutrophils % ( Manual) 71, Lymphocytes % (Manual) 9L, Monocytes % (Manual) 1, Eosinophils % ( Manual) 2, Basophils % (Manual) 0, Metamyelocytes % 3H, Myelocytes % 3H, Band Neutrophils 11H, Platelet Estimate Adequate, Platelet Morphology Normal, Poikilocytosis 1+, Anisocytosis 1+, Prothrombin Time 14.1H, Prothromb Time International Ratio 1.4H, Activated Partial Thromboplast Time 34H, Sodium Level 138, Potassium Level 3.6, Chloride Level 98, Carbon Dioxide Level 26, Anion Gap 14, Blood Urea Nitrogen 10, Creatinine 1.0, Estimat Glomerular Filtration Rate > 60, Glucose Level 101, Calcium Level 9.1 05/28/16 08:50: Vancomycin Level Trough 21.6H Height (Feet): 5 Height (Inches): 7.00 Weight (Pounds): 178 Mar Antoine N.P. May 28, 2016 12:20
--- NOTE | 2016-05-28 12:33 | Anethesia Preoperative Eval ---
Anesthesia Pre-op PMH/ROS General Date of Evaluation: May 28, 2016 Time of Evaluation: 12:14 Anesthesiologist: Saige ASA Score: ASA 3 Mallampati Score Class I : Soft palate, uvula, fauces, pillars visible Class II: Soft palate, uvula, fauces visible Class III: Soft palate, base of uvula visible Class IV: Only hard plate visible Mallampati Classification: Class II Surgeon: Chano Diagnosis: Abdominal pain Surgical Procedure: Colonoscpy Anesthesia History: none Family History: no anesthesia problems Allergies: Coded Allergies: OMEPRAZOLE (Unverified Allergy, Unknown, 01/23/15) Medications: see eMAR Past Medical History Cardiovascular: Reports: HTN, Denies: CAD, VT, arrhythmia, other, valve dz Pulmonary: Denies: COPD, [place], asthma, other Gastrointestinal/Genitourinary: Reports: GERD, Denies: CRI, ESRD, other Neurologic/Psychiatric: Reports: depression/anxiety, other - neuropathy, Denies: CVA, TIA, dementia Endocrine: Denies: DM, hypothyroidism, other, steroids HEENT: Denies: [place] (L), [place] (R), cataract (L), cataract (R), glaucoma, other Hematology/Immune: Reports: other - leucocytosis, Denies: DVT, anemia, bleeding disorder Musculoskeletal/Integumentary: Reports: DJD, Denies: DDD, OA, RA, edema, other PMH Narrative: as above PSxH Narrative: see chart Anesthesia Pre-op Phys. Exam Physician Exam Last Vital Signs Date Time Temp Pulse Resp B/P Pulse Ox O2 Delivery O2 Flow Rate FiO2 05/28/16 08:00 97.7 75 21 124/79 99 Room Air Constitutional: NAD Neurologic: CN 2-12 intact Cardiovascular: RRR, no M/R/G Respiratory: CTA Gastrointestinal: S/NT/ND Airway Exam Mallampati Score: Class II MO: limited Neck: stiff ROM: limited Teeth: missing Dentures: lower, upper Anesthesia Pre-op A/P Labs Hematology Test 05/28/16 06:30 White Blood Count 22.6 K/UL (4.8-10.8) *H Red Blood Count 3.66 M/UL (4.70-6.10) L Hemoglobin 11.0 G/DL (14.2-18.0) L Hematocrit 34.3 % (42.0-52.0) L Mean Corpuscular Volume 94 FL (80-99) Mean Corpuscular Hemoglobin 30.0 PG (27.0-31.0) Mean Corpuscular Hemoglobin Concent 32.1 G/DL (32.0-36.0) Red Cell Distribution Width 16.3 % (11.6-14.8) H Platelet Count 318 K/UL (150-450) Mean Platelet Volume 6.9 FL (6.5-10.1) Neutrophils (%) (Auto) % (45.0-75.0) Lymphocytes (%) (Auto) % (20.0-45.0) Monocytes (%) (Auto) % (1.0-10.0) Eosinophils (%) (Auto) % (0.0-3.0) Basophils (%) (Auto) % (0.0-2.0) Differential Total Cells Counted 100 Neutrophils % (Manual) 71 % (45-75) Lymphocytes % (Manual) 9 % (20-45) L Monocytes % (Manual) 1 % (1-10) Eosinophils % (Manual) 2 % (0-3) Basophils % (Manual) 0 % (0-2) Metamyelocytes % 3 % (0-0) H Myelocytes % 3 % (0-0) H Band Neutrophils 11 % (0-8) H Platelet Estimate Adequate Platelet Morphology Normal Poikilocytosis 1+ Anisocytosis 1+ Coagulation Test 05/28/16 06:30 Prothrombin Time 14.1 SEC (9.30-11.50) H Prothromb Time International Ratio 1.4 (0.9-1.1) H Activated Partial Thromboplast Time 34 SEC (23-33) H Chemistry Test 05/28/16 06:30 Sodium Level 138 mEQ/L (135-145) Potassium Level 3.6 mEQ/L (3.4-4.9) Chloride Level 98 mEQ/L (98-107) Carbon Dioxide Level 26 mEQ/L (20-30) Anion Gap 14 (5-15) Blood Urea Nitrogen 10 mg/dL (7-23) Creatinine 1.0 mg/dL (0.7-1.2) Estimat Glomerular Filtration Rate > 60 mL/min (>60) Glucose Level 101 mg/dL (74-106) Calcium Level 9.1 mg/dL (8.6-10.2) Risk Assessment & Plan Assessment: ASA 3 Plan: MAC Status Change Before Surgery: No Pre-Antibiotics Drug: None RHIANNA DAMON M.D. May 28, 2016 12:33
--- NOTE | 2016-05-28 12:40 | Endoscopy Procedure Note ---
Endoscopy Procedure Note Indication for Procedure: anemia Procedures Performed: colonoscopy Operative Findings/Diagnosis: 4 polyps Specimen: yes Pt Tolerated Procedure Well: Yes Estimated Blood Loss: none Anesthesiologist: hu Anesthesia: MAC Implant(s) used?: No 50 yrs or older w/o bx or poly: Not Applicable 10yrs. F/U not recommended: Not Applicable NAYAN VALLE May 28, 2016 12:40
[2016-05-28] MEDS ORDERED: fentaNYL 100 mcg/2 mL IV ONE (12:45)
[2016-05-28] MEDS ORDERED: DiphenhydrAMINE 50mg/ml Inj IVP PRN (12:45)
[2016-05-28] MEDS ORDERED: Propofol 10mg/ml 20ml IV ONE (12:45)
[2016-05-28] MEDS ORDERED: Midazolam 2mg/2ml Inj ONE (12:45)
[2016-05-28] MEDS ORDERED: Meperidine 25mg/ml Inj IV PRN (12:45)
--- NOTE | 2016-05-28 12:48 | Immediate Post-Op Evaluation ---
Immediate Post-Op Evalulation Immediate Post-Op Evalulation Procedure: Colonoscopy Polypectomy Date of Evaluation: May 28, 2016 Time of Evaluation: 12:47 IV Fluids: 300 Blood Products: none Estimated Blood Loss: none Urinary Output: none Blood Pressure Systolic: 108 Blood Pressure Diastolic: 56 Pulse Rate: 72 Respiratory Rate: 20 O2 Sat by Pulse Oximetry: 98 Temperature (Fahrenheit): 97.6 Pain Score (1-10): 1 Nausea: No Vomiting: No Complications none Patient Status: awake, patent, none Hydration Status: adequate RHIANNA DAMON M.D. May 28, 2016 12:48
--- NOTE | 2016-05-28 13:08 | 48 Hour Post Anesthesia Eval ---
Post Anesthesia Evaluation Procedure: Colonoscopy Polypectomy Date of Evaluation: May 28, 2016 Time of Evaluation: 13:06 Blood Pressure Systolic: 108 0: 64 Pulse Rate: 72 Respiratory Rate: 20 Temperature (Fahrenheit): 97.5 O2 Sat by Pulse Oximetry: 98 Airway: patent Nausea: No Vomiting: No Pain Intensity: 2 Hydration Status: adequate Cardiopulmonary Status: stable Mental Status/LOC: patient returned to baseline Follow-up Care/Observations: n/a Post-Anesthesia Complications: none Follow-up care needed: N/A RHIANNA DAMON M.D. May 28, 2016 13:07
[2016-05-28] MEDS: Micafungin 100 MG in NS 110 ML IVPB SCH (14:50)
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
[2016-05-28] MEDS: Vancomycin 1250mg/D5W 275ml IVPB SCH ×2 (18:21)
--- NOTE | 2016-05-28 20:58 | Procedure Note ---
DATE OF PROCEDURE: 05/28/2016 SURGEON: Master Madden M.D. ANESTHESIOLOGIST: Zaire Moulton M.D. PROCEDURE: Colonoscopy with biopsy and snare polypectomy. INSTRUMENT: Olympus adult flexible colonoscope. INDICATION: Screening colonoscopy evaluation and anemia. REASON FOR PROCEDURE: The procedure, risks, benefits, and possible consequences, including hemorrhage, aspiration, perforation and infection, and alternative treatments, were explained to the patient/legal guardian by Dr. Master Madden and the patient/legal guardian understood and accepted these risks. DESCRIPTION OF PROCEDURE: After informed consent was obtained and the patient was adequately sedated, first a rectal exam was performed, which was normal. Then, the scope was advanced from rectum into the cecum, documented by appendicial orifice, ileocecal valve, and upper quadrant palpation. Quality of prep was good. The patient had total of four polyps removed from this colonoscopic examination. One diminutive polyp in the cecum, two polyps in the ascending colon measured about 6 mm removed with snare polypectomy technique, and one diminutive polyp in the rectosigmoid area. Retroflexion of rectum showed evidence of internal hemorrhoids. SUMMARY FINDINGS: 1. Four colonic polyps removed. 2. Internal and external hemorrhoids. RECOMMENDATIONS: 1. Follow up biopsy results and treat accordingly. 2. Recommend to repeat colonoscopy in three years. I want to thank, Dr. Gaurav Kelly, for this kind referral. Master Madden M.D. DR: CANDE JOB#: [id number] CC: Gaurav Kelly M.D.; Fax#: [phone]
[2016-05-28] MEDS: Miralax 17gm pkt ORAL SCH (21:00)
[2016-05-29] VITALS: BP 121/79
[2016-05-29] MEDS: Cefepime HCl 1 GM in D5W 55 ML IVPB SCH ×2 (00:01→13:06)
[2016-05-29] MEDS: HYDROmorphone 1mg/ml Carpuject IVP PRN ×5 (00:52→19:42)
[2016-05-29 04:00] VITALS: BP 131/74
[2016-05-29] MEDS: Vancomycin 1250mg/D5W 275ml IVPB SCH ×2 (06:23)
[2016-05-29] MEDS: metroNIDAZOLE 500mg tab ORAL SCH (06:23)
[2016-05-29 07:11] LABS: MEAN CORPUSCULAR HEMOGLOBIN 30.1 PG (27.0-31.0); MEAN CORPUSCULAR HGB CONC 32.3 G/DL (32.0-36.0); MEAN CORPUSCULAR VOLUME 93 FL (80-99); MEAN PLATELET VOLUME 6.8 FL (6.5-10.1); PLATELET COUNT 341 K/UL (150-450); RED BLOOD COUNT 3.52 M/UL (4.70-6.10); RED CELL DISTRIBUTION WIDTH 16.7 % (11.6-14.8)
[2016-05-29 07:37] LABS: ANION GAP 12 (5-15); CALCIUM 9.3 mg/dL (8.6-10.2); CARBON DIOXIDE 28 mEQ/L (20-30); CHLORIDE 99 mEQ/L (98-107); GLOMERULAR FILTRATION RATE > 60 mL/min (>60); HEMOLYSIS 2; POTASSIUM 3.9 mEQ/L (3.4-4.9); SODIUM 139 mEQ/L (135-145)
[2016-05-29 07:46] VITALS: BP 124/71
[2016-05-29] MEDS: Docusate 100mg cap ORAL SCH ×3 (08:20→18:33)
[2016-05-29 10:47] LABS: ANISOCYTOSIS 1+; BAND NEUTROPHILS % (MANUAL) 7 % (0-8); BASOPHILS % (MANUAL) 0 % (0-2); EOSINOPHILS % (MANUAL) 2 % (0-3); HYPOCHROMASIA 1+; LYMPHOCYTES % (MANUAL) 16 % (20-45); MYELOCYTES % 3 % (0-0); NEUTROPHILS % (MANUAL) 66 % (45-75); PLATELET ESTIMATE ADEQUATE; PLATELET MORPHOLOGY NORMAL; TOTAL CELLS COUNTED 100
[2016-05-29 11:29] VITALS: BP 121/77
[2016-05-29] MEDS ORDERED: Heparin Sod 1000 units/ml 10ml INJ ONE (12:30)
--- NOTE | 2016-05-29 14:00 | GI Progress Note ---
Assessment/Plan Problems: (1) Rectal pain ICD Codes: K62.89 - Other specified diseases of anus and rectum SNOMED: 13839422 (2) Abdominal pain ICD Codes: R10.9 - Unspecified abdominal pain SNOMED: 85581955 (3) Mamie-rectal abscess ICD Codes: K61.1 - Rectal abscess SNOMED: 54284547 Status: stable Status Narrative Discussed with Dr. Madden. Assessment/Plan APCT >> rectal wall thickening SUMMARY FINDINGS: 1. Four colonic polyps removed. 2. Internal and external hemorrhoids. RECOMMENDATIONS: 1. Follow up biopsy results and treat accordingly. 2. Recommend to repeat colonoscopy in three years. iron deficient >> venofer high fiber diet colace + miralax anusol HC abx fu labs Subjective Gastrointestinal/Abdominal: Reports: other Subjective rectal pain Objective Last 24 Hour Vital Signs Date Time Temp Pulse Resp B/P Pulse Ox O2 Delivery O2 Flow Rate FiO2 05/29/16 11:29 98.4 69 14 121/77 98 Room Air 05/29/16 08:19 68 124/71 05/29/16 07:46 97.9 68 15 124/71 99 Room Air 05/29/16 04:00 97.9 71 18 131/74 98 Room Air 05/29/16 00:00 98.1 68 18 121/79 98 Room Air 05/28/16 20:00 99.5 74 17 104/64 97 Room Air 05/28/16 16:00 98.1 66 16 111/72 96 Room Air Intake and Output 05/28/16 05/29/16 19:00 07:00 Intake Total 705 ml 950.000 ml Output Total 0 ml Balance 705 ml 950.000 ml Intake Oral 240 ml 620 ml IV Total 465 ml 330.000 ml Estimated Blood Loss 0 ml # Voids 1 # Bowel Movements 1 Laboratory Tests Test 05/29/16 06:30 05/29/16 10:23 05/29/16 10:30 White Blood Count 22.0 K/UL (4.8-10.8) H Red Blood Count 3.52 M/UL (4.70-6.10) L Hemoglobin 10.6 G/DL (14.2-18.0) L Hematocrit 32.8 % (42.0-52.0) L Mean Corpuscular Volume 93 FL (80-99) Mean Corpuscular Hemoglobin 30.1 PG (27.0-31.0) Mean Corpuscular Hemoglobin Concent 32.3 G/DL (32.0-36.0) Red Cell Distribution Width 16.7 % (11.6-14.8) H Platelet Count 341 K/UL (150-450) Mean Platelet Volume 6.8 FL (6.5-10.1) Neutrophils (%) (Auto) % (45.0-75.0) Lymphocytes (%) (Auto) % (20.0-45.0) Monocytes (%) (Auto) % (1.0-10.0) Eosinophils (%) (Auto) % (0.0-3.0) Basophils (%) (Auto) % (0.0-2.0) Differential Total Cells Counted 100 Neutrophils % (Manual) 66 % (45-75) Lymphocytes % (Manual) 16 % (20-45) L Monocytes % (Manual) 6 % (1-10) Eosinophils % (Manual) 2 % (0-3) Basophils % (Manual) 0 % (0-2) Myelocytes % 3 % (0-0) H Band Neutrophils 7 % (0-8) Platelet Estimate Adequate Platelet Morphology Normal Hypochromasia 1+ Anisocytosis 1+ Sodium Level 139 mEQ/L (135-145) Potassium Level 3.9 mEQ/L (3.4-4.9) Chloride Level 99 mEQ/L (98-107) Carbon Dioxide Level 28 mEQ/L (20-30) Anion Gap 12 (5-15) Blood Urea Nitrogen 7 mg/dL (7-23) Creatinine 1.0 mg/dL (0.7-1.2) Estimat Glomerular Filtration Rate > 60 mL/min (>60) Glucose Level 116 mg/dL (74-106) H Calcium Level 9.3 mg/dL (8.6-10.2) Erythrocyte Sedimentation Rate 47 MM/HR (0-20) H Rheumatoid Factor Screen Pending Anti-Nuclear Antibody Screen Pending c-ANCA Titer Pending p-ANCA Titer Pending Height (Feet): 5 Height (Inches): 7.00 Weight (Pounds): 178 General Appearance: no apparent distress, alert Cardiovascular: normal rate Respiratory/Chest: normal breath sounds, no respiratory distress Abdominal Exam: normal bowel sounds, non tender, soft Fleming,Nancy Juan Pablo N.P. May 29, 2016 14:00
--- NOTE | 2016-05-29 14:18 | Diagnostic Imaging Report ---
Indication: Unexplained leukocytosis Technique: In vitro labeling autologous white blood cells using 543 ?Ci of indium-111. White blood cells were reinjected, and whole body and spot images were obtained at 24 hours Comparison: None Findings: Normal hepatic and splenic activity are demonstrated. The spleen is enlarged. The spleen is enlarged. Normal bone marrow and soft tissue blood pool activity are demonstrated. There is questionably some increased activity in the region of the right ankle. No other definite focal there is increased activity are demonstrated. Impression: Equivocal slight increased right ankle activity, could indicate active infection in that area. Correlate with clinical findings No definite other abnormal foci of increased uptake to suggest abscess or other occult infectious process Splenomegaly. This has been reported previously
[2016-05-29] MEDS: Micafungin 100 MG in NS 110 ML IVPB SCH (14:31)
[2016-05-29 15:55] VITALS: BP 132/76
[2016-05-29] MEDS: DiphenhydrAMINE 50mg/ml Inj IVP PRN (16:13)
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
[2016-05-29 19:00] VITALS: BP 127/82
[2016-05-29] MEDS: Miralax 17gm pkt ORAL SCH ×2 (21:00→22:16)
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
[2016-05-30] VITALS: BP 131/75
[2016-05-30 04:00] VITALS: BP 141/83
[2016-05-30 05:12] LABS: RHEUMATOID FACTOR SCREEN <10.0 IU/mL (0.0-13.9)
[2016-05-30 07:18] LABS: MEAN CORPUSCULAR HEMOGLOBIN 29.8 PG (27.0-31.0); MEAN CORPUSCULAR VOLUME 93 FL (80-99); MEAN PLATELET VOLUME 6.7 FL (6.5-10.1); PLATELET COUNT 391 K/UL (150-450); RED BLOOD COUNT 3.73 M/UL (4.70-6.10); RED CELL DISTRIBUTION WIDTH 16.5 % (11.6-14.8)
[2016-05-30 07:31] LABS: WHITE BLOOD COUNT 24.5 K/UL (4.8-10.8)
[2016-05-30 07:34] LABS: ANION GAP 16 (5-15); CALCIUM 9.5 mg/dL (8.6-10.2); CARBON DIOXIDE 25 mEQ/L (20-30); CHLORIDE 95 mEQ/L (98-107); CREATININE 0.9 mg/dL (0.7-1.2); GLOMERULAR FILTRATION RATE > 60 mL/min (>60); HEMOLYSIS 2; POTASSIUM 3.7 mEQ/L (3.4-4.9); SODIUM 136 mEQ/L (135-145)
[2016-05-30] MEDS: HYDROmorphone 1mg/ml Carpuject IVP PRN ×4 (07:41→20:14)
[2016-05-30] MEDS: DiphenhydrAMINE 50mg/ml Inj IVP PRN ×2 (07:41→17:02)
[2016-05-30 08:04] VITALS: BP 146/91
[2016-05-30] MEDS: Docusate 100mg cap ORAL SCH ×2 (09:18→18:43)
[2016-05-30 09:43] LABS: BILIRUBIN,DIRECT 0.1 mg/dL (0.1-0.3)
[2016-05-30 09:47] LABS: ANISOCYTOSIS 1+; BAND NEUTROPHILS % (MANUAL) 2 % (0-8); BASOPHILS % (MANUAL) 0 % (0-2); EOSINOPHILS % (MANUAL) 3 % (0-3); LYMPHOCYTES % (MANUAL) 11 % (20-45); METAMYELOCYTES % 1 % (0-0); MYELOCYTES % 3 % (0-0); NEUTROPHILS % (MANUAL) 69 % (45-75); PLATELET ESTIMATE ADEQUATE; PLATELET MORPHOLOGY NORMAL; POIKILOCYTOSIS OCCASIONAL; TOTAL CELLS COUNTED 100
--- NOTE | 2016-05-30 13:23 | GI Progress Note ---
Assessment/Plan Problems: (1) Rectal pain ICD Codes: K62.89 - Other specified diseases of anus and rectum SNOMED: 74101277 (2) Abdominal pain ICD Codes: R10.9 - Unspecified abdominal pain SNOMED: 60778540 (3) Mamie-rectal abscess ICD Codes: K61.1 - Rectal abscess SNOMED: 57299834 (4) Constipation ICD Codes: K59.00 - Constipation, unspecified SNOMED: 24703493 Status: unchanged Status Narrative Discussed with Dr. Madden. Assessment/Plan APCT >> rectal wall thickening SUMMARY FINDINGS: 1. Four colonic polyps removed. 2. Internal and external hemorrhoids. RECOMMENDATIONS: 1. Follow up biopsy results and treat accordingly. >> no high grade dysplasia 2. Recommend to repeat colonoscopy in three years. iron deficient >> venofer high fiber diet refrain from self digital disimpaction colace + miralax anusol HC abx fu labs Subjective Subjective rectal pain improved Objective Last 24 Hour Vital Signs Date Time Temp Pulse Resp B/P Pulse Ox O2 Delivery O2 Flow Rate FiO2 05/30/16 09:18 94 146/91 05/30/16 08:04 99.3 94 20 146/91 97 Room Air 05/30/16 04:00 99.1 77 18 141/83 98 Room Air 05/30/16 00:00 98.4 74 18 131/75 98 Room Air 05/29/16 20:12 98.4 05/29/16 19:00 99.3 77 20 127/82 99 Room Air 05/29/16 16:44 98.4 05/29/16 15:55 98.4 72 20 132/76 98 Room Air Intake and Output 05/29/16 05/30/16 19:00 07:00 Intake Total 1110 ml 240 ml Balance 1110 ml 240 ml Intake Oral 1000 ml 240 ml IV Total 110 ml # Voids 4 5 # Bowel Movements 1 Laboratory Tests Test 05/30/16 05:20 White Blood Count 24.5 K/UL (4.8-10.8) *H Red Blood Count 3.73 M/UL (4.70-6.10) L Hemoglobin 11.1 G/DL (14.2-18.0) L Hematocrit 34.8 % (42.0-52.0) L Mean Corpuscular Volume 93 FL (80-99) Mean Corpuscular Hemoglobin 29.8 PG (27.0-31.0) Mean Corpuscular Hemoglobin Concent 32.0 G/DL (32.0-36.0) Red Cell Distribution Width 16.5 % (11.6-14.8) H Platelet Count 391 K/UL (150-450) Mean Platelet Volume 6.7 FL (6.5-10.1) Neutrophils (%) (Auto) % (45.0-75.0) Lymphocytes (%) (Auto) % (20.0-45.0) Monocytes (%) (Auto) % (1.0-10.0) Eosinophils (%) (Auto) % (0.0-3.0) Basophils (%) (Auto) % (0.0-2.0) Differential Total Cells Counted 100 Neutrophils % (Manual) 69 % (45-75) Lymphocytes % (Manual) 11 % (20-45) L Monocytes % (Manual) 11 % (1-10) H Eosinophils % (Manual) 3 % (0-3) Basophils % (Manual) 0 % (0-2) Metamyelocytes % 1 % (0-0) H Myelocytes % 3 % (0-0) H Band Neutrophils 2 % (0-8) Platelet Estimate Adequate Platelet Morphology Normal Giant Platelets Occasional Red Blood Cell Morphology Poikilocytosis Occasional Anisocytosis 1+ Sodium Level 136 mEQ/L (135-145) Potassium Level 3.7 mEQ/L (3.4-4.9) Chloride Level 95 mEQ/L (98-107) L Carbon Dioxide Level 25 mEQ/L (20-30) Anion Gap 16 (5-15) H Blood Urea Nitrogen 5 mg/dL (7-23) L Creatinine 0.9 mg/dL (0.7-1.2) Estimat Glomerular Filtration Rate > 60 mL/min (>60) Glucose Level 116 mg/dL (74-106) H Calcium Level 9.5 mg/dL (8.6-10.2) Total Bilirubin 0.5 mg/dL (0.0-1.2) Direct Bilirubin 0.1 mg/dL (0.1-0.3) Aspartate Amino Transf (AST/SGOT) 13 U/L (5-40) Alanine Aminotransferase (ALT/SGPT) 8 U/L (3-41) Alkaline Phosphatase 73 U/L (40-129) Total Protein 7.0 g/dL (6.6-8.7) Albumin 3.5 g/dL (3.5-5.2) Height (Feet): 5 Height (Inches): 7.00 Weight (Pounds): 178 General Appearance: no apparent distress, alert Cardiovascular: normal rate Respiratory/Chest: normal breath sounds, no respiratory distress Abdominal Exam: normal bowel sounds, non tender, soft Nancy Fleming N.P. May 30, 2016 13:23
[2016-05-30] MEDS: Micafungin 100 MG in NS 110 ML IVPB SCH (13:56)
[2016-05-30 14:26] VITALS: BP 120/74
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
--- NOTE | 2016-05-30 15:35 | Diagnostic Imaging Report ---
Indication: Left ankle pain Technique: Left ankle/hindfoot imaging utilizing multiplanar T1 fast spin-echo and STIR. Comparison: None Findings: Study protocol for evaluation of osteomyelitis which was the clinical concern. Bone marrow signal is normal. There is no evidence of osteomyelitis. No abnormal fluid collections are identified. Small tibiotalar joint effusion is noted. Impression: No evidence of acute osteomyelitis or abscess. Small joint effusion
--- NOTE | 2016-05-30 15:36 | Diagnostic Imaging Report ---
Indication: Right ankle pain Technique: Right ankle/hind foot imaging utilizing multiplanar T1 fast spin-echo and STIR. Comparison: None Findings: Study protocol for evaluation of infection and osteomyelitis. Bone marrow signal is normal. There is no abscess. Subcutaneous and other soft tissues are unremarkable. There is a tibiotalar joint effusion. There is slight anterior subluxation of the talus with respect to the distal tibia. Please correlate clinically. Study was not protocoled for internal derangement or evaluation of ligaments, not evaluated well on this exam. Impression: No evidence of acute osteomyelitis or abscess. Abnormal tibiotalar joint with a small joint effusion and anterior subluxation.
[2016-05-30 16:00] VITALS: BP 147/70
[2016-05-30] MEDS ORDERED: Cefepime HCl 1 GM in D5W 55 ML IVPB SCH (16:00)
--- NOTE | 2016-05-30 17:16 | Nephrology Progress Note ---
Assessment/Plan Problem List: (1) Neuropathy (2) Neurogenic bladder (3) Muscle spasms of both lower extremities (4) Sepsis Plan Continue pain management Cultures pending Monitor counts Monitor Temp ID following Neuro following f/u with GI recommendation Hematology consult AM labs Subjective Constitutional: Denies: chills, diaphoresis, fever, malaise, no symptoms, other , weakness HEENT: Denies: blurred vision, double vision, ear discharge, ear pain, eye pain , mouth pain, mouth swelling, no symptoms, nose congestion, nose pain, other, tearing, throat pain, throat swelling Genitourinary: Denies: burning, discharge, flank pain, frequency, hematuria, incontinence, no symptoms, other, pain, urgency Neurologic/Psychiatric: Denies: anxiety, depressed, emotional problems, headache, no symptoms, numbness, other, paresthesia, pre-existing deficit, seizure, tingling, tremors, weakness Subjective In bed, in no distress Objective Objective Last 24 Hour Vital Signs Date Time Temp Pulse Resp B/P Pulse Ox O2 Delivery O2 Flow Rate FiO2 05/30/16 17:00 99.9 05/30/16 16:00 100.4 81 18 147/70 96 Room Air 05/30/16 14:26 101.1 70 20 120/74 98 Room Air 05/30/16 09:18 94 146/91 05/30/16 08:04 99.3 94 20 146/91 97 Room Air 05/30/16 04:00 99.1 77 18 141/83 98 Room Air 05/30/16 00:00 98.4 74 18 131/75 98 Room Air 05/29/16 20:12 98.4 05/29/16 19:00 99.3 77 20 127/82 99 Room Air Intake and Output 05/29/16 05/30/16 19:00 07:00 Intake Total 1110 ml 240 ml Balance 1110 ml 240 ml Intake Oral 1000 ml 240 ml IV Total 110 ml # Voids 4 5 # Bowel Movements 1 Laboratory Tests 05/30/16 05:20: White Blood Count 24.5*H, Red Blood Count 3.73L, Hemoglobin 11.1L, Hematocrit 34.8L, Mean Corpuscular Volume 93, Mean Corpuscular Hemoglobin 29.8, Mean Corpuscular Hemoglobin Concent 32.0, Red Cell Distribution Width 16.5H, Platelet Count 391, Mean Platelet Volume 6.7, Neutrophils (%) (Auto) , Lymphocytes (%) (Auto) , Monocytes (%) (Auto) , Eosinophils (%) (Auto) , Basophils (%) (Auto) , Differential Total Cells Counted 100, Neutrophils % ( Manual) 69, Lymphocytes % (Manual) 11L, Monocytes % (Manual) 11H, Eosinophils % (Manual) 3, Basophils % (Manual) 0, Metamyelocytes % 1H, Myelocytes % 3H, Band Neutrophils 2, Platelet Estimate Adequate, Platelet Morphology Normal, Giant Platelets Occasional, Red Blood Cell Morphology , Poikilocytosis Occasional, Anisocytosis 1+, Sodium Level 136, Potassium Level 3.7, Chloride Level 95L, Carbon Dioxide Level 25, Anion Gap 16H, Blood Urea Nitrogen 5L, Creatinine 0.9, Estimat Glomerular Filtration Rate > 60, Glucose Level 116H, Calcium Level 9.5, Total Bilirubin 0.5, Direct Bilirubin 0.1, Aspartate Amino Transf (AST/SGOT) 13 , Alanine Aminotransferase (ALT/SGPT) 8, Alkaline Phosphatase 73, Total Protein 7.0, Albumin 3.5 Height (Feet): 5 Height (Inches): 7.00 Weight (Pounds): 178 General Appearance: no apparent distress, alert EENT: normal ENT inspection Neck: normal alignment, supple Cardiovascular: normal rate, regular rhythm, no JVD Respiratory/Chest: normal breath sounds, no respiratory distress Abdomen: soft, no organomegaly Genitourinary/Rectal: other - supra pubic catheter Extremities: non-tender, normal inspection, no calf tenderness, normal capillary refill Neurologic: alert, oriented x 3, responsive, normal mood/affect Mar Antoine N.P. May 30, 2016 17:16
[2016-05-30] MEDS ORDERED: Vancomycin 1250mg/D5W 275ml IVPB SCH ×2 (18:00)
[2016-05-30 20:00] VITALS: BP 117/75
[2016-05-30] MEDS: Miralax 17gm pkt ORAL SCH (20:13)
[2016-05-30] MEDS ORDERED: Vancomycin 1 GM in D5W 275 ML IVPB SCH (21:00)
[2016-05-30] MEDS ORDERED: NS 550ML IV ONE (23:09)
[2016-05-30] MEDS ORDERED: Tubing IV Secondary IV ONE (23:09)
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
--- NOTE | 2016-06-02 13:22 | Discharge Summary ---
Discharge Summary Hospital Course Date of Admission May 22, 2016 at 23:16 Date of Discharge May 30, 2016 at 23:10 Admitting Diagnosis sepsis HPI Zachery Berger is a 56 year old male who was admitted on May 22, 2016 at 23:16 for Sepsis Hospital Course dc summary # [id number] Discharge Condition Upon Discharge: stable Discharge Disposition Patient signed AMA Discharge Diagnoses: Discharge Instructions Discharge Instructions Special Instructions I have been assigned to complete a D/C Summary on this account. I was not involved in the patient management Danuta Dominguez NP (Vanchtein) Jun 02, 2016 13:22
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
[2016-06-03 09:27] LABS: A/G RATIO 0.9 (0.7-1.7); ABNORMAL PROTEIN BAND 1 Not Observed g/dL (Not Observed); ALBUMIN 3.1 g/dL (2.9-4.4); ALPHA-1 GLOBULIN 0.3 g/dL (0.0-0.4); ALPHA-2 GLOBULIN 0.8 g/dL (0.4-1.0); BETA GLOBULIN 1.1 g/dL (0.7-1.3); GAMMA GLOBULIN 1.3 g/dL (0.4-1.8); GLOBULIN, TOTAL 3.6 g/dL (2.2-3.9); TOTAL PROTEIN 6.7 g/dL (6.0-8.5)
== END 2016-05-30 23:10 | disposition left against medical advice (07) | DRG 720 ==
LOC: EMR 19:40 → 4E 23:16 → EDBEDREQ 05-23 00:11
PROC: 02HV33Z Insertion of Infusion Device into Superior Vena Cava, Percutaneous Approach (ICD-10-PCS; principal; 2016-05-27)
PROC: 0DBP8ZZ Excision of Rectum, Via Natural or Artificial Opening Endoscopic (ICD-10-PCS; 2016-05-28)
PROC: 0DBH8ZZ Excision of Cecum, Via Natural or Artificial Opening Endoscopic (ICD-10-PCS; 2016-05-28)
PROC: 0DBK8ZZ Excision of Ascending Colon, Via Natural or Artificial Opening Endoscopic (ICD-10-PCS; 2016-05-28 12:19)
DX: A41.9 Sepsis, unspecified organism (principal); G82.22 Paraplegia, incomplete; G62.9 Polyneuropathy, unspecified; N31.9 Neuromuscular dysfunction of bladder, unspecified; S34.124 Incomplete lesion of L4 level of lumbar spinal cord; I10 Essential (primary) hypertension; R25.2 Cramp and spasm; D64.9 Anemia, unspecified; K63.5 Polyp of colon; D63.8 Anemia in other chronic diseases classified elsewhere; N39.0 Urinary tract infection, site not specified; G57.83 Other specified mononeuropathies of bilateral lower limbs; D50.9 Iron deficiency anemia, unspecified; W34.00XS Accidental discharge from unspecified firearms or gun, sequela; Z88.8 Allergy status to other drugs, medicaments and biological substances; G89.4 Chronic pain syndrome; K64.8 Other hemorrhoids; K64.4 Residual hemorrhoidal skin tags
CPT/HCPCS: 36415; 36569; 71010; 74177; 76937; 78807; 80048; 80053; 80076; 80202; 81001; 81003; 81270; 82248; 82270; 82378; 82550; 82607; 82746; 83540; 83550; 83615; 83690; 83735; 84165; 85007; 85025; 85610; 85651; 85730; 86021; 86039; 86431; 86703; 87040; 87070; 87086; 87181; 87493; 93005; 94003; 94150; A9570; J2250; J2405

== ENCOUNTER → 2016-06-06 | Emergency (ER) | payer OTHER ==
[~2016-06-06] VITALS: Ht 170.2 cm; Wt 75.3 kg
[~2016-06-06] MED LIST changes: +LORAZEPAM2 MG/1 M4 ORAL; +LYRICA200 MG ORAL; +NORVASC2.5 MG ORAL; +UNOBMED
[2016-06-06 15:13] VITALS: BP 146/92
--- NOTE | 2016-06-06 15:42 | Emergency Room Report ---
Physical Exam Vital Signs Date Time Temp Pulse Resp B/P Pulse Ox O2 Delivery O2 Flow Rate FiO2 06/06/16 15:13 99.7 71 16 146/92 99 Room Air Medical Decision Making Reevaluation Time: 15:41 Last Vital Signs Date Time Temp Pulse Resp B/P Pulse Ox O2 Delivery O2 Flow Rate FiO2 06/06/16 15:13 99.7 71 16 146/92 99 Room Air Reevaluation Impression Informed by charge weigher that patient left before being seen. I did not see, examine, or talk with patient before he left. I did not get a chance to discuss with patient why he was here or have opportunity to convince him to stay in ED for evaluation. Disposition: LEFT W/OUT BEING SEEN SEBASTIAN BRAN M.D. Jun 06, 2016 15:41
== END | disposition left against medical advice (07) ==
LOC: EMR 17:33
DX: Z53.21 Procedure and treatment not carried out due to patient leaving prior to being seen by health care provider (principal)
CPT/HCPCS: 99281

== ENCOUNTER 2016-06-07 12:33 | Emergency (ER) | payer OTHER ==
[~2016-06-07] VITALS: Ht 175.3 cm; Wt 59.0 kg
[2016-06-07 13:04] VITALS: BP 120/80
--- NOTE | 2016-06-12 23:06 | Emergency Room Report ---
History of Present Illness General Chief Complaint: Abnormal Labs Source: Patient Present Illness HPI Patient presents with what he reports is for continued care Patient was here previously left AGAINST MEDICAL ADVICE This was approximately 8 days ago And presents for continued care Patient reports that he had to leave the hospital He had continued elevated white blood cell count Patient at this time denies any fevers denies any chest pain or shortness of breath Since he had left AGAINST MEDICAL ADVICE he had returned Denies any vomiting or diarrhea denies any fevers or chills, Allergies: Coded Allergies: OMEPRAZOLE (Unverified Allergy, Unknown, 01/23/15) Patient History Past Medical History: see triage record Pertinent Family History: none Reviewed Nursing Documentation: PMH: Agreed, PSxH: Agreed Nursing Documentation-PMH Hx Cardiac Problems: No Hx Hypertension: Yes Hx Pacemaker: No Hx Asthma: No Hx COPD: No Hx Diabetes: No Hx Cancer: Yes Hx Gastrointestinal Problems: No Hx Dialysis: No History Of Psychiatric Problem: No Hx Cerebrovascular Accident: No Hx Seizures: No Hx Weakness: Yes - BLE Review of Systems All Other Systems: negative except mentioned in HPI Physical Exam Vital Signs Date Time Temp Pulse Resp B/P Pulse Ox O2 Delivery O2 Flow Rate FiO2 06/07/16 12:45 98.1 92 18 121/87 100 Room Air Sp02 EP Interpretation: reviewed, normal General Appearance: well appearing, no apparent distress Head: normocephalic, atraumatic Eyes: bilateral eye EOMI, bilateral eye PERRL ENT: normal pharynx, no angioedema Neck: supple, thyroid normal Respiratory: lungs clear, normal breath sounds Cardiovascular #1: regular rate, rhythm, no gallop Gastrointestinal: non tender, soft Genitourinary: no CVA tenderness Musculoskeletal: normal inspection Neurologic: alert, oriented x3, responsive Skin: no rash Lymphatic: no adenopathy Medical Decision Making Diagnostic Impression: Primary Impression: medical screening evaluation Additional Impression: Leukocytosis ER Course Patient is asymptomatic upon arrival Hemodynamically appropriate with afebrile finding Patient also clinically does not have any other complaints Patient had left the hospital over 7 days ago At this time it is felt the patient can continue outpatient followup He reports that he has follow up with his primary physician in the next one day It is felt the patient is stable to follow through with this outpatient appointment Patient did have a complex inpatient course with multiple specialty consultation Infectious disease and other specialty Patient is a complex case, however at this time given that presentation Afebrile, clinically stable Patient is appropriate for scheduled outpatient care, Last Vital Signs Date Time Temp Pulse Resp B/P Pulse Ox O2 Delivery O2 Flow Rate FiO2 06/07/16 13:04 98.0 66 16 120/80 98 Room Air Status: unchanged Disposition: HOME, SELF-CARE Condition: Stable Referrals: NOT CHOSEN IPA/MD,REFERRING Patient Instructions: Medical Screening Exam, Leukocytosis Additional Instructions: Please note that he has had multiple significant abnormalities diagnosed At this time continued outpatient workup will be required as he had left the hospital AGAINST MEDICAL ADVICE for over the past 8 days Yet also voiced that he have an appointment with her primary physician on Thursday Ear examination today does not show any emergency pathology And urgent outpatient workup is recommended RODNEY JUNIOR D.O. Jun 12, 2016 23:06
== END 2016-06-07 13:02 | disposition home or self-care (01) ==
LOC: EMR 13:00
DX: D72.829 Elevated white blood cell count, unspecified (principal); Z88.8 Allergy status to other drugs, medicaments and biological substances
CPT/HCPCS: 99282

== ENCOUNTER 2016-06-23 08:58 | Inpatient (IN) | payer OTHER ==
[~2016-06-23] VITALS: Ht 170.2 cm; Wt 70.3 kg
[2016-06-23 09:10] VITALS: BP 135/82
[2016-06-23 09:40] LABS: APPEARANCE,URINE CLEAR; KETONES,URINE NEGATIVE (NEGATIVE); LEUKOCYTE ESTERASE ,URINE 1+ (NEGATIVE); NITRITE,URINE NEGATIVE (NEGATIVE); PH,URINE 6 (4.5-8.0); PROTEIN,URINE NEGATIVE (NEGATIVE); UROBILINOGEN,URINE NORMAL MG/DL (0.0-1.0)
[2016-06-23 10:11] LABS: BACTERIA,URINE OCCASIONAL /HPF; RBC,URINE 0-2 /HPF (0 - 0); SQUAMOUS EPITHELIAL CELL,UR OCCASIONAL /LPF (NONE/OCC); WBC,URINE 0-2 /HPF (0 - 0)
[2016-06-23] MEDS ORDERED: Morphine Sulfate 2mg/ml Inj IVP ONE (10:15)
[2016-06-23 10:20] LABS: MEAN CORPUSCULAR HEMOGLOBIN 29.5 PG (27.0-31.0); MEAN CORPUSCULAR HGB CONC 30.8 G/DL (32.0-36.0); MEAN CORPUSCULAR VOLUME 96 FL (80-99); MEAN PLATELET VOLUME 8.5 FL (6.5-10.1); PLATELET COUNT 188 K/UL (150-450); RED BLOOD COUNT 3.51 M/UL (4.70-6.10); RED CELL DISTRIBUTION WIDTH 18.6 % (11.6-14.8)
[2016-06-23 10:22] LABS: WHITE BLOOD COUNT 31.5 K/UL (4.8-10.8)
[2016-06-23 10:42] LABS: ALANINE AMINOTRANSFERASE 13 U/L (3-41); ANION GAP 17 (5-15); ASPARTATE AMINO TRANSFERASE 17 U/L (5-40); CARBON DIOXIDE 22 mEQ/L (20-30); CHLORIDE 102 mEQ/L (98-107); CREATININE 0.8 mg/dL (0.7-1.2); GLOMERULAR FILTRATION RATE > 60 mL/min (>60); HEMOLYSIS 10; LIPASE 15 U/L (< 60); POTASSIUM 4.6 mEQ/L (3.4-4.9); SODIUM 141 mEQ/L (135-145); TOTAL PROTEIN 7.5 g/dL (6.6-8.7)
[2016-06-23] MEDS ORDERED: Vancomycin 1 GM in NS 275 ML IV ONE (11:00)
[2016-06-23] MEDS ORDERED: Vancomycin 1gm inj IVPB ONE (11:10)
[2016-06-23] MEDS ORDERED: Zosyn 4.5gm inj ONE (11:16)
[2016-06-23 11:42] LABS: ANISOCYTOSIS 1+; BAND NEUTROPHILS % (MANUAL) 17 % (0-8); BASOPHILS % (MANUAL) 0 % (0-2); BLAST% 2 % (0-0); EOSINOPHILS % (MANUAL) 2 % (0-3); HYPOCHROMASIA 1+; LYMPHOCYTES % (MANUAL) 7 % (20-45); METAMYELOCYTES % 1 % (0-0); MYELOCYTES % 7 % (0-0); NEUTROPHILS % (MANUAL) 53 % (45-75); PLATELET ESTIMATE ADEQUATE; PLATELET MORPHOLOGY NORMAL; TOTAL CELLS COUNTED 100
[2016-06-23] MEDS ORDERED: HYDROmorphone 1 MG, DiphenhydrAMINE 25 MG in NS 55 ML IVPB ONE (12:30)
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
[2016-06-23] MEDS ORDERED: HYDROmorphone 1mg/ml Carpuject ONE (12:39)
[2016-06-23] MEDS ORDERED: NS 55 ML IV ONE (12:39)
[2016-06-23] MEDS ORDERED: DiphenhydrAMINE 50mg/ml Inj ONE (12:39)
[2016-06-23 13:12] VITALS: BP 133/66
[2016-06-23] MEDS: Piperacillin/Tazobactam 4.5 GM in NS 110 ML IV SCH ×2 (14:10→22:35)
[2016-06-23 15:00] VITALS: BP 129/80
[2016-06-23] MEDS ORDERED: DuoNeb 0.5-3(2.5)mg/3ml neb HHN PRN (15:00)
[2016-06-23] MEDS ORDERED: Nitroglycerin Subl 0.4mg tab (Bottle Of 25) SL PRN (15:00)
[2016-06-23] MEDS ORDERED: Miralax 17gm pkt ORAL PRN (15:00)
[2016-06-23] MEDS ORDERED: Lidocaine 1% Plain 30 ml INJ ONE (15:15)
[2016-06-23] MEDS ORDERED: Heparin 2000 units/Ns 1000ml INJ ONE (15:15)
[2016-06-23 16:00] VITALS: BP 142/87
--- NOTE | 2016-06-23 17:07 | Diagnostic Imaging Report ---
Indications: Needs long-term IV access Technique: Ultrasound confirms patent compressible left brachial vein. Total sterile technique, including sterile probe cover and sterile gel, hat, mask,, sterile gown, large sterile drape, and preparation with 2% chlorhexidine utilized. Local anesthesia with 1% lidocaine. Under real-time ultrasound guidance, puncture vein using 21-gauge needle, documented and archived, passage 0.018 guidewire under direct fluoroscopy, which was used to determine appropriate catheter length, exchange for 5 Malagasy peel-away sheath. 5 Malagasy Bard dual-lumen power PICC cut to 48 cm. It was inserted through the peel-away sheath. Peel-away sheath and guidewire removed. Catheter fixed to the skin. Both catheter ports aspirated and flushed. Patient tolerated procedure well, without immediate complication. Digital radiograph documents satisfactory catheter tip position, at the cavoatrial junction. Total fluoroscopy time 0.2 minutes. Total dose area product 2.5 dGycm2 Impression: Successful placement of left arm PICC under sonographic and fluoroscopic guidance, as described above.
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
[2016-06-23] MEDS: Cefepime HCl 2 GM in D5W 110 ML IV SCH (17:32)
[2016-06-23] MEDS: Morphine Sulfate 2mg/ml Inj IVP PRN ×2 (17:33→21:43)
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
[2016-06-23 20:00] VITALS: BP 134/79
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
[2016-06-23] MEDS: Vancomycin 1 GM in D5W 275 ML IVPB SCH (21:38)
[2016-06-23] MEDS: Heparin 5000 units/ml inj SUBQ SCH (21:43)
[2016-06-24] VITALS: BP 124/74
[2016-06-24] MEDS: HYDROmorphone 1mg/ml Carpuject IVP PRN ×5 (03:35→19:40)
[2016-06-24] MEDS: DiphenhydrAMINE 50mg/ml Inj IVP PRN ×3 (03:35→21:17)
[2016-06-24 04:00] VITALS: BP 115/62
[2016-06-24] MEDS: Cefepime HCl 2 GM in D5W 110 ML IV SCH ×2 (05:04→17:51)
[2016-06-24] MEDS: Piperacillin/Tazobactam 4.5 GM in NS 110 ML IV SCH (06:00)
[2016-06-24 07:05] LABS: MEAN CORPUSCULAR HEMOGLOBIN 30.4 PG (27.0-31.0); MEAN CORPUSCULAR HGB CONC 31.7 G/DL (32.0-36.0); MEAN CORPUSCULAR VOLUME 96 FL (80-99); MEAN PLATELET VOLUME 9.2 FL (6.5-10.1); PLATELET COUNT 186 K/UL (150-450); RED CELL DISTRIBUTION WIDTH 18.4 % (11.6-14.8)
[2016-06-24 07:18] LABS: ALANINE AMINOTRANSFERASE 10 U/L (3-41); ALBUMIN/GLOBULIN RATIO 0.9 (1.0-2.7); ANION GAP 12 (5-15); ASPARTATE AMINO TRANSFERASE 13 U/L (5-40); CALCIUM 9.4 mg/dL (8.6-10.2); CARBON DIOXIDE 27 mEQ/L (20-30); CHLORIDE 100 mEQ/L (98-107); GLOMERULAR FILTRATION RATE > 60 mL/min (>60); HEMOLYSIS 0; POTASSIUM 4.4 mEQ/L (3.4-4.9); SODIUM 139 mEQ/L (135-145); TOTAL PROTEIN 7.3 g/dL (6.6-8.7); WHITE BLOOD COUNT 27.2 K/UL (4.8-10.8)
[2016-06-24 08:23] VITALS: BP 110/55
[2016-06-24] MEDS: Heparin 5000 units/ml inj SUBQ SCH ×2 (08:37→21:25)
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
[2016-06-24 09:59] LABS: BAND NEUTROPHILS % (MANUAL) 12 % (0-8); BASOPHILS % (MANUAL) 1 % (0-2); EOSINOPHILS % (MANUAL) 2 % (0-3); LYMPHOCYTES % (MANUAL) 8 % (20-45); METAMYELOCYTES % 5 % (0-0); MYELOCYTES % 5 % (0-0); NEUTROPHILS % (MANUAL) 62 % (45-75); TOTAL CELLS COUNTED 100
[2016-06-24 10:01] LABS: PLATELET ESTIMATE ADEQUATE; PLATELET MORPHOLOGY NORMAL
[2016-06-24 10:04] LABS: ANISOCYTOSIS 1+; HYPOCHROMASIA 1+
[2016-06-24] MEDS: Vancomycin 1 GM in D5W 275 ML IVPB SCH ×2 (10:47→21:17)
[2016-06-24 12:07] VITALS: BP 106/57
[2016-06-24 16:00] VITALS: BP 146/92
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
[2016-06-24 20:00] VITALS: BP 127/78
[2016-06-25] VITALS: BP 133/81
[2016-06-25] MEDS: HYDROmorphone 1mg/ml Carpuject IVP PRN ×4 (00:34→09:48)
[2016-06-25] MEDS: DiphenhydrAMINE 50mg/ml Inj IVP PRN (03:38)
[2016-06-25 04:00] VITALS: BP 150/86
[2016-06-25] MEDS: Cefepime HCl 2 GM in D5W 110 ML IV SCH (05:46)
[2016-06-25 05:56] LABS: APPEARANCE,URINE SLIGHTLY CLOUDY; KETONES,URINE NEGATIVE (NEGATIVE); LEUKOCYTE ESTERASE ,URINE NEGATIVE (NEGATIVE); NITRITE,URINE NEGATIVE (NEGATIVE); PH,URINE 6.5 (4.5-8.0); PROTEIN,URINE NEGATIVE (NEGATIVE); UROBILINOGEN,URINE NORMAL MG/DL (0.0-1.0)
[2016-06-25 06:02] LABS: BACTERIA,URINE FEW /HPF; RBC,URINE 0-2 /HPF (0 - 0); SQUAMOUS EPITHELIAL CELL,UR FEW /LPF (NONE/OCC); WBC,URINE 0-2 /HPF (0 - 0)
[2016-06-25 07:57] VITALS: BP 151/86
[2016-06-25] MEDS: Vancomycin 1 GM in D5W 275 ML IVPB SCH (09:12)
[2016-06-25] MEDS: Heparin 5000 units/ml inj SUBQ SCH (09:13)
[2016-06-25] MEDS ORDERED: NS 275ml ONE (10:32)
[2016-06-25] MEDS ORDERED: Tubing IV Secondary IV ONE (10:32)
--- NOTE | 2016-06-25 10:58 | Consultation ---
DATE OF CONSULTATION: INFECTIOUS DISEASE CONSULTATION CONSULTING PHYSICIAN: Curtis Diaz M.D. REFERRING PHYSICIAN: Annita Olivarez M.D. REASON FOR CONSULTATION: Evaluation of the patient for possible urinary tract infection, antibiotic management. HISTORY OF PRESENT ILLNESS: The patient is a 56-year-old male with multiple medical problems, due to the fever. The patient was found to have leukocytosis and Infectious Disease consultation has been requested for further patient's antibiotic management. PAST MEDICAL HISTORY: 1. Paraplegia. 2. Neurogenic bladder. 3. History of recurrent urinary tract infection. In the past, the patient has ESBL E. coli UTI. 4. History of perirectal abscess in the past. PAST SURGICAL HISTORY: Significant for perirectal incision and drainage. MEDICATIONS: IV cefepime and vancomycin. ALLERGIES: Omeprazole. SOCIAL HISTORY: The patient is . FAMILY HISTORY: Noncontributory. REVIEW OF SYSTEMS: HEENT: No recent change in vision or hearing. Pulmonary: No cough or shortness of breath. Cardiovascular: No chest pain or palpitation. Gastrointestinal/Abdomen: No nausea or vomiting. Genitourinary: As mentioned above. PHYSICAL EXAMINATION: VITAL SIGNS: Temperature 98.2 degrees, pulse 86, T-max 101.3 degrees, and blood pressure 110/55. HEENT: Mild pale conjunctivae. No icterus. NECK: No lymphadenopathy. CHEST: Coarse breathing sounds. HEART: S1 and S2. ABDOMEN: Soft and nontender. EXTREMITIES: No cyanosis . NEUROLOGIC: Awake. LABORATORY AND DIAGNOSTIC DATA: White blood cells 27, hemoglobin 10, and platelets 186,000. HIV test negative. Urinalysis shows 0-2 white blood cells and 0-2 red blood cells. ASSESSMENT: The patient is a 56-year-old male with multiple medical problems as listed above, who came to the hospital with fever. Based on current workup, there is no source for fever. Chest x-ray is unremarkable. CT scan of the abdomen had not showed any evidence of splenomegaly. The patient has leukocytosis chronically and because of his anemia there is a concern for possible bone marrow process. PLAN: 1. We will continue the patient on IV cefepime and vancomycin. 2. Monitor CBC. 3. Monitor BMP. 4. Monitor cultures. 5. Based on the patient's clinical course and laboratories, we will do further recommendation. Thank you, Dr. Olivarez, for allowing me to participate in the care of this patient. I will follow the patient with you during this hospitalization. Curtis Diaz M.D. DR: ERIK JOB#: [id number] CC:
[2016-06-25] MEDS ORDERED: Morphine Sulfate 4mg/ml Inj IVP PRN (11:30)
[2016-06-25] MEDS ORDERED: LORazepam Inj 2mg/ml 1ml IV PRN (11:30)
[2016-06-25 12:00] VITALS: BP 136/77
--- NOTE | 2016-06-25 13:14 | General Progress Note ---
Progress Note Progress Note Bone marrow aspiration and biopsy procedure Pathology Date/ Time: 06/25/2016 12: 20PM Indication: Leukocytosis with abnormal myeloblasts Referred by: Annita Olivarez M.D. - Time-out was called to confirm: patients name and date of , procedure, side and site of biopsy, safety procedures followed. - Performed by: Hipolito Orozco M.D and Anand Barcenas M.D - Attending pathologist: Hipolito Orozco M.D. Anand Barcenas M.D - Informed consent: signed by patient. - Aspiration and biopsy site: Left superior posterior iliac crest. - Patient position: Right lateral decubitus - Preparation and technique: sterile preparation of site with [place], Chloraprep, draped to expose aspirate/biopsy area, local anesthesia with 1% lidocaine (approximately 4 ml), and frequent pressure application on incision to maintain hemostasis. - Tissue obtained: bone marrow aspirate and biopsy were successfully obtained in sterile manner. - Toleration of procedure and any complications: slight localized bleeding (<1ml ). Patient tolerated procedure well with minimal pain. HIPOLITO OROZCO Jun 25, 2016 13:14
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
[2016-06-25] MEDS ORDERED: NS 550ML IV ONE (16:59)
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
--- NOTE | 2016-06-26 14:26 | Discharge Summary ---
Discharge Summary Hospital Course Date of Admission Jun 23, 2016 at 11:01 Date of Discharge Jun 25, 2016 at 17:00 Admitting Diagnosis sepsis HPI Zachery Berger is a 56 year old male who was admitted on Jun 23, 2016 at 11:01 for Sepsis Hospital Course [id number] Discharge Discharge Disposition Patient left AMA Discharge Diagnoses: Alka Joseph NP Jun 26, 2016 14:26
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
== END 2016-06-25 17:00 | disposition left against medical advice (07) | DRG 720 ==
LOC: EMR 09:37 → 4E 11:01 → EDBEDREQ 14:52 → 4E 21:12
PROC: 02HV33Z Insertion of Infusion Device into Superior Vena Cava, Percutaneous Approach (ICD-10-PCS; 2016-06-23)
PROC: 07DR3ZX Extraction of Iliac Bone Marrow, Percutaneous Approach, Diagnostic (ICD-10-PCS; principal; 2016-06-25)
DX: A41.9 Sepsis, unspecified organism (principal); G82.20 Paraplegia, unspecified; N31.9 Neuromuscular dysfunction of bladder, unspecified; G62.9 Polyneuropathy, unspecified; S34.104S Unspecified injury to L4 level of lumbar spinal cord, sequela; Z88.8 Allergy status to other drugs, medicaments and biological substances; W34.00XS Accidental discharge from unspecified firearms or gun, sequela; D63.8 Anemia in other chronic diseases classified elsewhere; Z91.19 Patient's noncompliance with other medical treatment and regimen; I10 Essential (primary) hypertension; D72.828 Other elevated white blood cell count
CPT/HCPCS: 36415; 36569; 71010; 74177; 76937; 80053; 80202; 81001; 81003; 83690; 85007; 85025; 87040; 87086

== ENCOUNTER 2016-07-17 01:08 | Inpatient (IN) | payer OTHER ==
[~2016-07-17] VITALS: Ht 170.2 cm; Wt 75.7 kg
--- NOTE | 2016-07-17 01:41 | Emergency Room Report ---
History of Present Illness General Chief Complaint: Pain Source: Patient Present Illness HPI Is a 56-year-old male with history of paraplegia. He has chronic urinary tract infection because he has to self catheterize himself. He presents with chief complaint of back pain and leg pain bilaterally. Said he has a lot of spasm. Pain is 10 out of 10. Per his , he had on and off fever for the last couple days. Denies any nausea vomiting. The symptom in the past. Pain is 10 out of 10. Allergies: Coded Allergies: OMEPRAZOLE (Unverified Allergy, Unknown, 01/23/15) Patient History Past Medical History: see triage record, old chart reviewed Past Surgical History: other Pertinent Family History: none Social History: Denies: drug use Immunizations: other Reviewed Nursing Documentation: PMH: Agreed, PSxH: Agreed Nursing Documentation-PMH Hx Cardiac Problems: No Hx Hypertension: Yes Hx Pacemaker: No Hx Asthma: No Hx COPD: No Hx Diabetes: No Hx Cancer: Yes - COLON Hx Dialysis: No Hx Neurological Problems: No Hx Cerebrovascular Accident: No Hx Seizures: No Hx Weakness: Yes - BLE Review of Systems Eye: Denies: blurred vision, eye pain ENT: Denies: ear pain, nose congestion, throat swelling Respiratory: Denies: cough, shortness of breath Cardiovascular: Denies: chest pain, palpitations Gastrointestinal: Denies: abdominal pain, diarrhea, nausea, vomiting Musculoskeletal: Reports: joint pain, Denies: back pain Skin: Denies: rash Neurological: Denies: headache, numbness Endocrine: Denies: increased thirst, increased urine Hematologic/Lymphatic: Denies: easy bruising All Other Systems: negative except mentioned in HPI Physical Exam Vital Signs Date Time Temp Pulse Resp B/P Pulse Ox O2 Delivery O2 Flow Rate FiO2 07/17/16 01:13 97.9 88 18 98/60 98 Room Air vitals normal Sp02 EP Interpretation: reviewed, normal General Appearance: well appearing, no apparent distress, alert Head: normocephalic, atraumatic Eyes: bilateral eye EOMI, bilateral eye PERRL ENT: hearing grossly normal, normal pharynx Neck: full range of motion, supple, no meningismus Respiratory: chest non-tender, lungs clear, normal breath sounds Cardiovascular #1: regular rate, rhythm, no murmur Gastrointestinal: normal bowel sounds, non tender, no mass, no organomegaly, no bruit, non-distended Musculoskeletal: back normal, other - diffuse leg pain b/l Neurologic: alert, oriented x3 Psychiatric: mood/affect normal Skin: warm/dry Medical Decision Making Diagnostic Impression: Primary Impression: Sepsis Qualified Codes: A41.9 - Sepsis, unspecified organism Additional Impressions: UTI (urinary tract infection) Qualified Codes: N30.00 - Acute cystitis without hematuria Leukocytosis Qualified Codes: D72.829 - Elevated white blood cell count, unspecified ER Course Patient presents with sepsis secondary to UTI. He has no fever here. He grew out Escherichia coli in the past is resistant to Cipro and Levaquin. Still some given here. I also gave him vancomycin to cover for staph aureus. Pain is well-controlled. But pressure stable. We'll admit for further IV fluid antibiotics. Lab Results Impression labs with leukocytosis Rhythm Strip Diag. Results EP Interpretation: yes Rate: 88 Rhythm: NSR, no PVC's, no ectopy Last Vital Signs Date Time Temp Pulse Resp B/P Pulse Ox O2 Delivery O2 Flow Rate FiO2 07/17/16 01:13 97.9 88 18 98/60 98 Room Air Status: improved Disposition: ADMITTED INPATIENT Condition: Serious JOE PHELPS M.D. Jul 17, 2016 01:41
[2016-07-17] MEDS ORDERED: HYDROmorphone 1mg/ml Carpuject IVP ONE ×2 (01:45→03:15)
[2016-07-17] MEDS ORDERED: LORazepam Inj 2mg/ml 1ml IV ONE (01:45)
[2016-07-17 02:14] LABS: APPEARANCE,URINE CLEAR; KETONES,URINE 1+ (NEGATIVE); LEUKOCYTE ESTERASE ,URINE 1+ (NEGATIVE); NITRITE,URINE POSITIVE (NEGATIVE); PH,URINE 6 (4.5-8.0); PROTEIN,URINE 2+ (NEGATIVE); UROBILINOGEN,URINE 1 MG/DL (0.0-1.0)
[2016-07-17 02:20] LABS: MEAN CORPUSCULAR HEMOGLOBIN 29.8 PG (27.0-31.0); MEAN CORPUSCULAR HGB CONC 30.5 G/DL (32.0-36.0); MEAN CORPUSCULAR VOLUME 98 FL (80-99); MEAN PLATELET VOLUME 8.9 FL (6.5-10.1); PLATELET COUNT 147 K/UL (150-450); RED BLOOD COUNT 2.94 M/UL (4.70-6.10); RED CELL DISTRIBUTION WIDTH 19.7 % (11.6-14.8)
[2016-07-17 02:25] LABS: ANION GAP 15 (5-15); CALCIUM 8.4 mg/dL (8.6-10.2); CARBON DIOXIDE 24 mEQ/L (20-30); CHLORIDE 99 mEQ/L (98-107); CREATININE 1.4 mg/dL (0.7-1.2); GLOMERULAR FILTRATION RATE > 60 mL/min (>60); HEMOLYSIS 1; POTASSIUM 4.2 mEQ/L (3.4-4.9); SODIUM 138 mEQ/L (135-145)
[2016-07-17 02:29] LABS: BACTERIA,URINE MANY /HPF; SQUAMOUS EPITHELIAL CELL,UR FEW /LPF (NONE/OCC)
[2016-07-17] MEDS ORDERED: Zosyn 3.375gm inj ONE (02:36)
[2016-07-17] MEDS ORDERED: Piperacillin/Tazobactam 3.375 GM in NS 110 ML IVPB ONE (02:45)
[2016-07-17] MEDS ORDERED: Vancomycin 1.5gm/D5W 300ml 325 ML IVPB ONE (02:45)
[2016-07-17 03:20] VITALS: BP 102/57
[2016-07-17 04:00] VITALS: BP 105/63
[2016-07-17 04:12] LABS: REFLEX LACTIC ACID YES OR NO YES
[2016-07-17 05:42] LABS: BAND NEUTROPHILS % (MANUAL) 20 % (0-8); BASOPHILS % (MANUAL) 1 % (0-2); EOSINOPHILS % (MANUAL) 1 % (0-3); LYMPHOCYTES % (MANUAL) 23 % (20-45); NEUTROPHILS % (MANUAL) 51 % (45-75); PLATELET ESTIMATE DECREASED; TOTAL CELLS COUNTED 100
[2016-07-17 05:43] LABS: PLATELET MORPHOLOGY NORMAL
[2016-07-17] MEDS ORDERED: Morphine Sulfate 2mg/ml Inj IVP PRN (06:45)
[2016-07-17] MEDS ORDERED: DuoNeb 0.5-3(2.5)mg/3ml neb HHN PRN (06:45)
[2016-07-17] MEDS ORDERED: Miralax 17gm pkt ORAL PRN (06:45)
[2016-07-17] MEDS ORDERED: Nitroglycerin Subl 0.4mg tab (Bottle Of 25) SL PRN (06:45)
[2016-07-17 08:00] VITALS: BP 139/90
[2016-07-17] MEDS ORDERED: Cefepime HCl 1 GM in D5W 55 ML IVPB SCH (09:00)
[2016-07-17] MEDS: Heparin 5000 units/ml inj SUBQ SCH ×2 (09:00→21:00)
--- NOTE | 2016-07-17 09:57 | Consultation ---
Consult Note Consult Note ID Dic# [id number] INDERJIT BOYKIN M.D. Jul 17, 2016 09:57
[2016-07-17 11:51] LABS: ALANINE AMINOTRANSFERASE 14 U/L (3-41); ALBUMIN/GLOBULIN RATIO 0.9 (1.0-2.7); ANION GAP 17 (5-15); ASPARTATE AMINO TRANSFERASE 21 U/L (5-40); CALCIUM 8.7 mg/dL (8.6-10.2); CARBON DIOXIDE 23 mEQ/L (20-30); CHLORIDE 94 mEQ/L (98-107); CREATININE 1.2 mg/dL (0.7-1.2); GLOMERULAR FILTRATION RATE > 60 mL/min (>60); HEMOLYSIS 3; MAGNESIUM 1.9 mg/dL (1.7-2.5); PHOSPHORUS 3.5 mg/dL (2.5-4.8); POTASSIUM 3.8 mEQ/L (3.4-4.9); SODIUM 134 mEQ/L (135-145); TOTAL PROTEIN 6.7 g/dL (6.6-8.7); URIC ACID 8.1 mg/dL (3.0-7.5)
[2016-07-17] MEDS: HYDROmorphone 1mg/ml Carpuject IVP PRN ×3 (11:58→21:20)
[2016-07-17] MEDS: Ertapenem 1 GM in NS 55 ML IVPB SCH (11:58)
[2016-07-17 12:00] VITALS: BP 100/63
[2016-07-17 12:02] LABS: THYROID STIMULATING HORMONE 0.376 uIU/mL (0.300-4.500)
[2016-07-17 12:13] LABS: BILIRUBIN,DIRECT 0.3 mg/dL (0.1-0.3)
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
[2016-07-17] MEDS ORDERED: Tubing IV Secondary IV ONE (15:30)
[2016-07-17 16:00] VITALS: BP 107/73
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
[2016-07-17 18:11] LABS: APPEARANCE,URINE CLEAR; KETONES,URINE NEGATIVE (NEGATIVE); LEUKOCYTE ESTERASE ,URINE 1+ (NEGATIVE); NITRITE,URINE NEGATIVE (NEGATIVE); PH,URINE 6.5 (4.5-8.0); PROTEIN,URINE NEGATIVE (NEGATIVE); UROBILINOGEN,URINE NORMAL MG/DL (0.0-1.0)
[2016-07-17 18:19] LABS: BACTERIA,URINE FEW /HPF; RBC,URINE 0-2 /HPF (0 - 0)
[2016-07-17 20:00] VITALS: BP 135/82
[2016-07-18 07:26] LABS: MEAN CORPUSCULAR VOLUME 97 FL (80-99); PLATELET COUNT 100 K/UL (150-450); RED BLOOD COUNT 3.15 M/UL (4.70-6.10); RED CELL DISTRIBUTION WIDTH 19.6 % (11.6-14.8)
[2016-07-18 07:49] LABS: ALANINE AMINOTRANSFERASE 17 U/L (3-41); ALBUMIN/GLOBULIN RATIO 0.9 (1.0-2.7); ANION GAP 15 (5-15); ASPARTATE AMINO TRANSFERASE 24 U/L (5-40); CALCIUM 9.1 mg/dL (8.6-10.2); CARBON DIOXIDE 25 mEQ/L (20-30); CHLORIDE 101 mEQ/L (98-107); GLOMERULAR FILTRATION RATE > 60 mL/min (>60); HEMOLYSIS 0; POTASSIUM 3.8 mEQ/L (3.4-4.9); SODIUM 141 mEQ/L (135-145); TOTAL PROTEIN 7.1 g/dL (6.6-8.7)
[2016-07-18 07:51] VITALS: BP 107/68
[2016-07-18 07:54] LABS: WHITE BLOOD COUNT 32.7 K/UL (4.8-10.8)
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
[2016-07-18 08:18] LABS: BILIRUBIN,DIRECT 0.3 mg/dL (0.1-0.3)
[2016-07-18] MEDS: HYDROmorphone 1mg/ml Carpuject IVP PRN (08:46)
[2016-07-18] MEDS: Heparin 5000 units/ml inj SUBQ SCH (08:54)
[2016-07-18 08:59] LABS: BAND NEUTROPHILS % (MANUAL) 18 % (0-8); EOSINOPHILS % (MANUAL) 2 % (0-3); LYMPHOCYTES % (MANUAL) 15 % (20-45); METAMYELOCYTES % 5 % (0-0); MYELOCYTES % 2 % (0-0); NEUTROPHILS % (MANUAL) 51 % (45-75); TOTAL CELLS COUNTED 100
[2016-07-18 09:00] LABS: ANISOCYTOSIS 2+; BASOPHILS % (MANUAL) 0 % (0-2); HYPOCHROMASIA 2+; PLATELET ESTIMATE DECREASED; PLATELET MORPHOLOGY NORMAL; POLYCHROMASIA 1+
--- NOTE | 2016-07-18 09:59 | Diagnostic Imaging Report ---
Indication:Elevated Bun and Creatinine. Technique: Grayscale and duplex Doppler imaging of the kidneys performed. Comparison: None Findings: The size, contour, and echogenicity of both kidneys are within normal limits. Right kidney 10.3 CM. Left kidney 10.8 CM. There is no hydronephrosis. The IVC and urinary bladder are unremarkable. Massive splenomegaly incidentally noted spleen measuring 17 cm Impression: Negative ultrasound kidneys. Splenomegaly
[2016-07-18] MEDS: Ertapenem 1 GM in NS 55 ML IVPB SCH (11:23)
[2016-07-18 11:35] VITALS: BP 113/65
--- NOTE | 2016-07-18 12:59 | Infectious Diseases Prog Note ---
Assessment/Plan Assessment/Plan A: The patient is a 56-year-old male with possible urinary tract infection UCx : GNR Low-grade fever History of ESBL E. coli urinary tract infection. History of perirectal abscess. Paraplegia. Neurogenic bladder PLAN: Cont pt on Invanz 1 g daily d# Monitor CBC. Monitor BMP. Monitor cultures (blood and urine). Subjective Constitutional: Denies: anorexia, chills, drenching sweats, fatigue, fever, no symptoms, other Allergies: Coded Allergies: OMEPRAZOLE (Unverified Allergy, Unknown, 01/23/15) Objective Vital Signs Last 24 Hour Vital Signs Date Time Temp Pulse Resp B/P Pulse Ox O2 Delivery O2 Flow Rate FiO2 07/18/16 11:35 98.2 76 20 113/65 95 Room Air 07/18/16 08:43 93 107/68 07/18/16 07:51 98.2 93 21 107/68 97 Room Air 07/18/16 06:45 93 18 Room Air 07/17/16 21:56 97.9 07/17/16 20:05 82 18 Room Air 07/17/16 20:00 97.9 82 20 135/82 99 Room Air 07/17/16 19:06 97.8 07/17/16 16:00 98.2 89 20 107/73 99 Room Air 07/17/16 14:43 97.8 Height (Feet): 5 Height (Inches): 7.00 Weight (Pounds): 167 HEENT: mucous membranes moist Respiratory/Chest: respiratory distress Abdomen: non distended Microbiology Date/Time Source Procedure Growth Status 07/17/16 02:05 Urine,Clean Catch Urine Culture - Preliminary Gram Negative Bacillus 1 Resulted Laboratory Tests Test 07/17/16 17:09 07/18/16 06:25 Urine Color Pale yellow Urine Appearance Clear Urine pH 6.5 (4.5-8.0) Urine Specific [place] 1.005 (1.005-1.035) Urine Protein Negative (NEGATIVE) Urine Glucose (UA) Negative (NEGATIVE) Urine Ketones Negative (NEGATIVE) Urine Occult Blood Negative (NEGATIVE) Urine Nitrite Negative (NEGATIVE) Urine Bilirubin Negative (NEGATIVE) Urine Urobilinogen Normal MG/DL (0.0-1.0) Urine Leukocyte Esterase 1+ (NEGATIVE) H Urine RBC 0-2 /HPF (0 - 0) H Urine WBC 2-4 /HPF (0 - 0) Urine Squamous Epithelial Cells None /LPF (NONE/OCC) Urine Bacteria Few /HPF (NONE) Urine Eosinophils None seen Urine Osmolality Pending Urine Random Sodium 18 mmol/L Urine Random Chloride 15 mmol/L Urine Potassium Timed 4 mmol/L White Blood Count 32.7 K/UL (4.8-10.8) *H Red Blood Count 3.15 M/UL (4.70-6.10) L Hemoglobin 9.4 G/DL (14.2-18.0) L Hematocrit 30.4 % (42.0-52.0) L Mean Corpuscular Volume 97 FL (80-99) Mean Corpuscular Hemoglobin 30.0 PG (27.0-31.0) Mean Corpuscular Hemoglobin Concent 31.0 G/DL (32.0-36.0) L Red Cell Distribution Width 19.6 % (11.6-14.8) H Platelet Count 100 K/UL (150-450) L Mean Platelet Volume 11.0 FL (6.5-10.1) H Neutrophils (%) (Auto) % (45.0-75.0) Lymphocytes (%) (Auto) % (20.0-45.0) Monocytes (%) (Auto) % (1.0-10.0) Eosinophils (%) (Auto) % (0.0-3.0) Basophils (%) (Auto) % (0.0-2.0) Differential Total Cells Counted 100 Neutrophils % (Manual) 51 % (45-75) Lymphocytes % (Manual) 15 % (20-45) L Monocytes % (Manual) 7 % (1-10) Eosinophils % (Manual) 2 % (0-3) Basophils % (Manual) 0 % (0-2) Metamyelocytes % 5 % (0-0) H Myelocytes % 2 % (0-0) H Band Neutrophils 18 % (0-8) H Platelet Estimate Decreased L Platelet Morphology Normal Polychromasia 1+ Hypochromasia 2+ Anisocytosis 2+ Sodium Level 141 mEQ/L (135-145) Potassium Level 3.8 mEQ/L (3.4-4.9) Chloride Level 101 mEQ/L (98-107) Carbon Dioxide Level 25 mEQ/L (20-30) Anion Gap 15 (5-15) Blood Urea Nitrogen 11 mg/dL (7-23) Creatinine 1.0 mg/dL (0.7-1.2) Estimat Glomerular Filtration Rate > 60 mL/min (>60) Glucose Level 129 mg/dL (74-106) H Calcium Level 9.1 mg/dL (8.6-10.2) Total Bilirubin 1.3 mg/dL (0.0-1.2) H Direct Bilirubin 0.3 mg/dL (0.1-0.3) Aspartate Amino Transf (AST/SGOT) 24 U/L (5-40) Alanine Aminotransferase (ALT/SGPT) 17 U/L (3-41) Alkaline Phosphatase 121 U/L (40-129) Total Protein 7.1 g/dL (6.6-8.7) Albumin 3.5 g/dL (3.5-5.2) Globulin 3.6 g/dL Albumin/Globulin Ratio 0.9 (1.0-2.7) L Current Medications Medications (Trade) Dose Ordered Sig/Arash Route PRN Reason Start Time Stop Time Status Last Admin Dose Admin Acetaminophen (Tylenol) 650 mg Q4H PRN ORAL fever 07/17/16 06:45 08/16/16 06:44 07/17/16 13:44 Albuterol/ Ipratropium (DuoNeb 0.5-3(2.5)mg/3ml) 3 ml EVERY 4 HOURS PRN HHN Shortness of Breath 07/17/16 06:45 07/22/16 06:44 Amitriptyline HCl (Elavil) 25 mg BEDTIME ORAL 07/17/16 21:00 08/16/16 20:59 07/17/16 21:19 Amlodipine Besylate (Norvasc) 2.5 mg DAILY ORAL 07/17/16 09:00 08/16/16 08:59 07/17/16 08:20 Ertapenem/Sodium Chloride (INVanz/Sodium Chloride) 55 ml @ 110 mls/hr Q24H IVPB 07/17/16 12:00 07/22/16 11:59 07/17/16 11:58 Heparin Sodium (Porcine) (Heparin 5000 units/ml) 5,000 units EVERY 12 HOURS SUBQ 07/17/16 09:00 08/16/16 08:59 Hydromorphone HCl (Dilaudid) 1 mg Q4H PRN IVP For Pain 07/17/16 12:16 07/24/16 12:15 07/18/16 08:46 Nitroglycerin 0.4 mg 0.4 mg Q5M PRN SL Prn Chest Pain 07/17/16 06:45 08/16/16 06:44 Ondansetron HCl (Zofran) 4 mg Q6H PRN IVP Nausea & Vomiting 07/17/16 06:45 08/16/16 06:44 07/17/16 08:17 Polyethylene Glycol (Miralax) 17 gm DAILYPRN PRN ORAL Constipation 07/17/16 06:45 08/16/16 06:44 Temazepam (Restoril) 15 mg HSPRN PRN ORAL Insomnia 07/17/16 06:45 07/24/16 06:44 Tizanidine HCl (Zanaflex) 4 mg BID ORAL 07/17/16 09:00 08/16/16 08:59 07/18/16 08:44 INDERJIT BOYKIN M.D. Jul 18, 2016 12:59
[2016-07-18] MEDS ORDERED: Vancomycin 1.5 GM in D5W 325 ML IVPB SCH (22:00)
--- NOTE | 2016-07-21 10:46 | Discharge Summary ---
Discharge Summary Hospital Course Date of Admission Jul 17, 2016 at 03:00 Date of Discharge Jul 18, 2016 at 13:24 Admitting Diagnosis SEPSIS, UTI HPI Zachery Berger is a 56 year old male who was admitted on Jul 17, 2016 at 03:00 for Sepsis,Urinary Tract Infection Hospital Course dc summary#[id number] Discharge Discharge Disposition Patient signed AMA Discharge Diagnoses: [facility] ([facility]Danuta NP July 21, 2016 10:46
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
[2016-07-22 08:37] LABS: CORTISOL LC 8.9 ug/dL (.); FREE TRIIODOTHYRONINE 2.2 pg/mL (2.0-4.4)
== END 2016-07-18 13:24 | disposition left against medical advice (07) | DRG 720 ==
LOC: EMR 02:00 → EDBEDREQ 02:34 → 4E 03:00 → EDBEDREQ 03:07
DX: A41.9 Sepsis, unspecified organism (principal); N17.9 Acute kidney failure, unspecified; G82.20 Paraplegia, unspecified; N31.9 Neuromuscular dysfunction of bladder, unspecified; S34.104S Unspecified injury to L4 level of lumbar spinal cord, sequela; G62.9 Polyneuropathy, unspecified; N39.0 Urinary tract infection, site not specified; B96.20 Unspecified Escherichia coli [E. coli] as the cause of diseases classified elsewhere; E86.0 Dehydration; W34.00XS Accidental discharge from unspecified firearms or gun, sequela; D64.9 Anemia, unspecified; I10 Essential (primary) hypertension; Z88.8 Allergy status to other drugs, medicaments and biological substances
CPT/HCPCS: 36415; 76775; 80048; 80053; 81001; 82248; 82436; 82533; 82550; 83605; 83735; 83930; 83935; 84100; 84133; 84300; 84439; 84443; 84481; 84550; 85007; 85025; 87040; 87081; 87086; 87181; 89050; 94664; J2405

== ENCOUNTER 2016-07-24 06:02 | Emergency (ER) | payer OTHER ==
[~2016-07-24] VITALS: Ht 170.2 cm; Wt 72.6 kg
[2016-07-24 06:25] VITALS: BP 127/82
--- NOTE | 2016-07-24 06:59 | Emergency Room Report ---
History of Present Illness General Chief Complaint: Abdominal Pain Present Illness HPI 56 YOM here for leg spasm. Then triage CC was changed to "abdominal pain." Patient states "abdominal pain after colon surgery." He denies associated nausea/vomiting, fever/chills, diarrhea. I have seen patient in ED on previous visits with similar complaint. June 23 CTAP showed no acute process. In addition recent renal ultrasound was also negative. Patient's came to ED this morning for suture removal. He also registered because "we always come together." Multiple visits to ED for similar complaints. Chronic colonization d/t self- cath for neurogenic bladder d/t paraplegia from [facility]. Last admission blood cultures showed no growth. Patient signed out AMA, was not given Abx. ID has been consulted previously for persistent leukocytosis. No focal source has been identified. Bone biopsy was done but results were not available at time of AMA. Patient signed out AMA from last 2 admissions: June 23- and July 17. Allergies: Coded Allergies: OMEPRAZOLE (Unverified Allergy, Unknown, 01/23/15) Patient History Past Medical History: HTN, other - anemia Past Surgical History: other - W Pertinent Family History: none Social History: Denies: alcohol use, drug use, smoking Immunizations: UTD Reviewed Nursing Documentation: PMH: Agreed, PSxH: Agreed Nursing Documentation-PMH Hx Cardiac Problems: Yes - colon surgery June 2016 Hx Hypertension: Yes Hx Pacemaker: No Hx Asthma: No Hx COPD: No Hx Diabetes: No Hx Cancer: Yes - Colon cancer Hx Gastrointestinal Problems: No Hx Dialysis: No Hx Neurological Problems: No Hx Cerebrovascular Accident: No Hx Seizures: No Hx Weakness: Yes - BLE Physical Exam Vital Signs Date Time Temp Pulse Resp B/P Pulse Ox O2 Delivery O2 Flow Rate FiO2 07/24/16 06:12 98.8 89 18 127/82 98 Room Air Sp02 EP Interpretation: reviewed, normal General Appearance: normal inspection, well appearing, no apparent distress, alert, GCS 15, non-toxic Head: normocephalic, atraumatic Eyes: bilateral eye EOMI, bilateral eye PERRL ENT: normal ENT inspection, hearing grossly normal, normal voice Neck: normal inspection, full range of motion, supple, no bony tend Respiratory: normal inspection, lungs clear, normal breath sounds, no respiratory distress, no retraction, no wheezing Cardiovascular #1: regular rate, rhythm, no edema Gastrointestinal: normal inspection, normal bowel sounds, non tender, soft, no guarding, no hernia Genitourinary: no CVA tenderness Musculoskeletal: normal inspection, back normal, normal range of motion, Rigoberto' s Sign negative Neurologic: normal inspection, alert, oriented x3, responsive, 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 Afebrile. Patient very well appearing. Does not appear to be systemically ill. No focal abd ttp UA: Totally normal. Blood Cx negative X2 from recent admission last week so I have low suspicion for sepsis so I doubt utility of blood tests, imaging or admission at this point. In addition, patient has documented history of opiod dependence and history of signing out AMA from the floor. Urine Cx shows susceptibility to macrobid from 07/17 Rx Macrobid given patient left AMA from last visit, ?inadequately treated infection, chronic colonization. Patient given copy of bone marrow report for PMD followup tomorrow - on my limited review of results, suspicion for myeloid neoplasm as possible cause of persistent leukocytosis Rhythm Strip Diag. Results EP Interpretation: yes Rate: 82 Rhythm: NSR, no PVC's, no ectopy Last Vital Signs Date Time Temp Pulse Resp B/P Pulse Ox O2 Delivery O2 Flow Rate FiO2 07/24/16 06:25 98.8 84 18 127/82 98 Room Air Status: improved Disposition: HOME, SELF-CARE Scripts Nitrofurantoin Monohyd/M-Cryst* (MACROBID 100 MG*) 100 Mg Capsule 100 MG ORAL EVERY 12 HOURS for 7 Days, #14 CAP Prov: SEBASTIAN BRAN M.D. 07/24/16 Referrals: NOT CHOSEN KARLA/,REFERRING (PCP) SEBASTIAN BRAN M.D. July 24, 2016 06:59
[2016-07-24] MEDS ORDERED: NITROFURANTOIN100 M2 ORAL (07:00)
[2016-07-24 07:15] LABS: APPEARANCE,URINE CLEAR; KETONES,URINE NEGATIVE (NEGATIVE); LEUKOCYTE ESTERASE ,URINE NEGATIVE (NEGATIVE); NITRITE,URINE NEGATIVE (NEGATIVE); PH,URINE 6 (4.5-8.0); PROTEIN,URINE NEGATIVE (NEGATIVE); UROBILINOGEN,URINE NORMAL MG/DL (0.0-1.0)
[2016-07-24 07:33] VITALS: BP 115/77
== END 2016-07-24 07:40 | disposition home or self-care (01) ==
LOC: EMR 06:45
DX: R10.9 Unspecified abdominal pain (principal); R11.2 Nausea with vomiting, unspecified; R19.7 Diarrhea, unspecified; R50.9 Fever, unspecified; Z98.890 Other specified postprocedural states; I10 Essential (primary) hypertension; Z85.038 Personal history of other malignant neoplasm of large intestine
CPT/HCPCS: 81003; 99282

== ENCOUNTER 2016-08-05 09:50 | Inpatient (IN) | payer OTHER ==
[~2016-08-05] VITALS: Ht 170.2 cm; Wt 75.3 kg
[2016-08-05] MEDS ORDERED: Ketorolac 60mg Inj IM ONE (10:45)
[2016-08-05 11:00] VITALS: BP 149/72
[2016-08-05 11:03] LABS: APPEARANCE,URINE SLIGHTLY CLOUDY; KETONES,URINE 1+ (NEGATIVE); LEUKOCYTE ESTERASE ,URINE 1+ (NEGATIVE); NITRITE,URINE NEGATIVE (NEGATIVE); PH,URINE 5 (4.5-8.0); PROTEIN,URINE 2+ (NEGATIVE); UROBILINOGEN,URINE 4 MG/DL (0.0-1.0)
[2016-08-05 11:13] LABS: AMORPHOUS SEDIMENT,UR MODERATE /LPF; BACTERIA,URINE FEW /HPF; MUCUS,URINE FEW /LPF (NONE/OCC); SQUAMOUS EPITHELIAL CELL,UR OCCASIONAL /LPF (NONE/OCC)
[2016-08-05 11:14] LABS: ICTOTEST NEGATIVE
[2016-08-05] MEDS ORDERED: Metoclopramide 10mg/2ml Inj IVP ONE (11:30)
[2016-08-05] MEDS ORDERED: DiphenhydrAMINE 50mg/ml Inj IVP ONE (11:30)
[2016-08-05] MEDS ORDERED: Tubing IV Cassette IV ONE (11:56)
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
[2016-08-05 12:30] VITALS: BP 143/67
[2016-08-05] MEDS ORDERED: HYDROmorphone 1mg/ml Carpuject IVP ONE ×2 (12:30→15:30)
[2016-08-05 13:10] LABS: INR 1.3 (0.9-1.1); PROTHROMBIN TIME 13.4 SEC (9.30-11.50)
[2016-08-05 13:15] LABS: ALANINE AMINOTRANSFERASE 16 U/L (3-41); ALBUMIN/GLOBULIN RATIO 0.9 (1.0-2.7); ANION GAP 19 (5-15); ASPARTATE AMINO TRANSFERASE 29 U/L (5-40); CARBON DIOXIDE 20 mEQ/L (20-30); CHLORIDE 100 mEQ/L (98-107); CREATININE 1.2 mg/dL (0.7-1.2); GLOMERULAR FILTRATION RATE > 60 mL/min (>60); HEMOLYSIS 43; LIPASE 16 U/L (< 60); MAGNESIUM 2.2 mg/dL (1.7-2.5); POTASSIUM 4.2 mEQ/L (3.4-4.9); SODIUM 139 mEQ/L (135-145); TOTAL PROTEIN 7.4 g/dL (6.6-8.7)
[2016-08-05 13:32] LABS: BILIRUBIN,DIRECT 0.5 mg/dL (0.1-0.3)
[2016-08-05] MEDS ORDERED: cefTRIAXone 1 GM in NS 55 ML IVPB ONE (13:45)
[2016-08-05] MEDS: Lidocaine 1% Plain 30 ml INJ ONE (14:00)
[2016-08-05] MEDS: Heparin 2000 units/Ns 1000ml IV ONE (14:00)
[2016-08-05 14:02] LABS: MEAN CORPUSCULAR HEMOGLOBIN 30.4 PG (27.0-31.0); MEAN CORPUSCULAR VOLUME 101 FL (80-99); MEAN PLATELET VOLUME 13.9 FL (6.5-10.1); PLATELET COUNT 71 K/UL (150-450); RED BLOOD COUNT 2.43 M/UL (4.70-6.10); RED CELL DISTRIBUTION WIDTH 21.6 % (11.6-14.8)
[2016-08-05 14:15] VITALS: BP 128/65
[2016-08-05 14:19] LABS: WHITE BLOOD COUNT 98.4 K/UL (4.8-10.8)
[2016-08-05] MEDS ORDERED: Hydromorphone 0.5mg/0.5ml inj IVP ONE (15:00)
[2016-08-05] MEDS ORDERED: Tubing IV Secondary IV ONE (15:13)
[2016-08-05] MEDS ORDERED: NS 55 ML IV ONE (15:13)
[2016-08-05] MEDS ORDERED: Amikacin Rx to dose MISC PRN (15:45)
[2016-08-05] MEDS ORDERED: Miralax 17gm pkt ORAL PRN (15:45)
[2016-08-05] MEDS ORDERED: Mylanta II UD 30ml ORAL PRN (15:45)
[2016-08-05] MEDS ORDERED: Nitroglycerin Subl 0.4mg tab (Bottle Of 25) SL PRN (15:45)
[2016-08-05 17:04] VITALS: BP 135/79
[2016-08-05] MEDS: D5 1/2NS 1,000 ML IV SCH (18:51)
[2016-08-05] MEDS: Vancomycin 1gm in D5W 275ml IVPB SCH (18:52)
[2016-08-05] MEDS ORDERED: NS IV SCH (19:00)
[2016-08-05] MEDS ORDERED: AMIKACIN IV SCH (19:00)
[2016-08-05] MEDS: Morphine Sulfate 2mg/ml Inj IVP PRN (19:18)
[2016-08-05 20:00] VITALS: BP 127/62
[2016-08-05] MEDS: Heparin 5000 units/ml inj SUBQ SCH (20:10)
[2016-08-05] MEDS: Piperacillin/Tazobactam 3.375 GM in NS 110 ML IVPB SCH (22:23)
--- NOTE | 2016-08-05 22:23 | History and Physical ---
History of Present Illness General Reason for Hospitalization: Abdominal Pain Present Illness Allergies: Coded Allergies: OMEPRAZOLE (Unverified Allergy, Unknown, 01/23/15) Medication History Scheduled Amitriptyline HCl (Amitriptyline HCl), 25 MG ORAL BEDTIME, (Reported) Amlodipine Besylate (Norvasc), 2.5 MG ORAL DAILY, (Reported) Famotidine (Famotidine), 20 MG ORAL TWICE A DAY, (Reported) Lorazepam (Lorazepam), 2 MG ORAL BID, (Reported) Nitrofurantoin Monohyd/M-Cryst* (Macrobid 100 Mg*), 100 MG ORAL EVERY 12 HOURS Pregabalin (Lyrica), 200 MG ORAL TID, (Reported) Tizanidine Hcl* (Zanaflex*), 4 MG ORAL BID, (Reported) Patient History Healthcare decision maker NONE Resuscitation status Full Code Advanced Directive on File Physical Exam Last 24 Hour Vital Signs Date Time Temp Pulse Resp B/P Pulse Ox O2 Delivery O2 Flow Rate FiO2 08/05/16 21:17 98.6 08/05/16 19:48 98.6 08/05/16 17:04 98.6 97 18 135/79 100 Room Air 08/05/16 16:33 98.1 103 16 128/65 100 Room Air 08/05/16 16:00 98.1 08/05/16 14:15 103 16 128/65 100 Room Air 08/05/16 12:50 98.1 08/05/16 12:30 94 20 143/67 96 Room Air 08/05/16 11:20 98.1 08/05/16 11:00 109 20 149/72 100 Room Air 08/05/16 09:54 98.1 111 20 136/77 100 Laboratory Tests Test 08/05/16 10:45 08/05/16 11:45 08/05/16 13:45 Urine Color Brown Urine Appearance Slightly cloudy Urine pH 5 (4.5-8.0) Urine Specific [place] 1.020 (1.005-1.035) Urine Protein 2+ (NEGATIVE) H Urine Glucose (UA) Negative (NEGATIVE) Urine Ketones 1+ (NEGATIVE) H Urine Occult Blood 1+ (NEGATIVE) H Urine Nitrite Negative (NEGATIVE) Urine Bilirubin 1+ (NEGATIVE) H Urine Ictotest Negative Urine Urobilinogen 4 MG/DL (0.0-1.0) H Urine Leukocyte Esterase 1+ (NEGATIVE) H Urine RBC 2-4 /HPF (0 - 0) H Urine WBC 5-10 /HPF (0 - 0) H Urine Squamous Epithelial Cells Occasional /LPF Urine Amorphous Sediment Moderate /LPF (NONE) H Urine Bacteria Few /HPF (NONE) Urine Mucus Few /LPF (NONE/OCC) H Urine Opiates Screen Negative (NEGATIVE) Urine Barbiturates Screen Negative (NEGATIVE) Phencyclidine (PCP) Screen Negative (NEGATIVE) Urine Amphetamines Screen Negative (NEGATIVE) Urine Benzodiazepines Screen Negative (NEGATIVE) Urine Cocaine Screen Negative (NEGATIVE) Urine Marijuana (THC) Screen Positive (NEGATIVE) H Prothrombin Time 13.4 SEC (9.30-11.50) H Prothromb Time International Ratio 1.3 (0.9-1.1) H Activated Partial Thromboplast Time 29 SEC (23-33) Sodium Level 139 mEQ/L (135-145) Potassium Level 4.2 mEQ/L (3.4-4.9) Chloride Level 100 mEQ/L (98-107) Carbon Dioxide Level 20 mEQ/L (20-30) Anion Gap 19 (5-15) H Blood Urea Nitrogen 16 mg/dL (7-23) Creatinine 1.2 mg/dL (0.7-1.2) Estimat Glomerular Filtration Rate > 60 mL/min (>60) Glucose Level 148 mg/dL (74-106) H Calcium Level 9.0 mg/dL (8.6-10.2) Magnesium Level 2.2 mg/dL (1.7-2.5) Total Bilirubin 1.8 mg/dL (0.0-1.2) H Direct Bilirubin 0.5 mg/dL (0.1-0.3) H Aspartate Amino Transf (AST/SGOT) 29 U/L (5-40) Alanine Aminotransferase (ALT/SGPT) 16 U/L (3-41) Alkaline Phosphatase 140 U/L (40-129) H Total Protein 7.4 g/dL (6.6-8.7) Albumin 3.6 g/dL (3.5-5.2) Globulin 3.8 g/dL Albumin/Globulin Ratio 0.9 (1.0-2.7) L Lipase 16 U/L (< 60) White Blood Count 98.4 K/UL (4.8-10.8) *H Red Blood Count 2.43 M/UL (4.70-6.10) L Hemoglobin 7.4 G/DL (14.2-18.0) L Hematocrit 24.6 % (42.0-52.0) L Mean Corpuscular Volume 101 FL (80-99) H Mean Corpuscular Hemoglobin 30.4 PG (27.0-31.0) Mean Corpuscular Hemoglobin Concent 30.0 G/DL (32.0-36.0) L Red Cell Distribution Width 21.6 % (11.6-14.8) H Platelet Count 71 K/UL (150-450) L Mean Platelet Volume 13.9 FL (6.5-10.1) H Neutrophils (%) (Auto) % (45.0-75.0) Lymphocytes (%) (Auto) % (20.0-45.0) Monocytes (%) (Auto) % (1.0-10.0) Eosinophils (%) (Auto) % (0.0-3.0) Basophils (%) (Auto) % (0.0-2.0) Neutrophils % (Manual) Pending Lymphocytes % (Manual) Pending Platelet Estimate Pending Platelet Morphology Pending Serum Viscosity Pending Height (Feet): 5 Height (Inches): 7.00 Weight (Pounds): 166 Medications Current Medications Medications (Trade) Dose Ordered Sig/Arash Route PRN Reason Start Time Stop Time Status Last Admin Dose Admin Acetaminophen (Tylenol) 650 mg Q4H PRN ORAL fever 08/05/16 15:45 09/04/16 15:44 Al Hydroxide/Mg Hydroxide (Mylanta II) 30 ml Q6H PRN ORAL dyspepsia 08/05/16 15:45 09/04/16 15:44 08/05/16 22:17 Amikacin Protocol (Amikacin pharmacy to dose) 1 ea DAILY PRN MISC Per rx protocol 08/05/16 15:45 09/04/16 15:44 Amikacin Sulfate 1000 mg/Sodium Chloride 59 ml @ 118 mls/hr Q24H IV 08/05/16 19:00 08/12/16 18:59 08/05/16 20:18 Amitriptyline HCl (Elavil) 25 mg BEDTIME ORAL 08/05/16 21:00 09/04/16 20:59 08/05/16 20:45 Amlodipine Besylate (Norvasc) 2.5 mg DAILY ORAL 08/06/16 09:00 09/05/16 08:59 Dextrose STAT PRN IV Hypoglycemia 08/05/16 15:45 09/04/16 15:44 Dextrose/Sodium Chloride (D5 0.45% NS) 1,000 ml @ 75 mls/hr [id number] IV 08/05/16 17:00 09/04/16 16:59 08/05/16 18:51 Diphenhydramine HCl (Benadryl) 25 mg Q6H PRN ORAL Itching/Pruritis 08/05/16 15:45 09/04/16 15:44 Heparin Sodium (Porcine) (Heparin 5000 units/ml) 5,000 units EVERY 12 HOURS SUBQ 08/05/16 21:00 09/04/16 20:59 Morphine Sulfate (Morphine Sulfate) 2 mg Q4H PRN IVP severe Pain (Pain Scale 7-10) 08/05/16 15:45 08/12/16 15:44 08/05/16 19:18 Nitroglycerin (Ntg) 0.4 mg Q5M X 3 DOSES PRN SL Prn Chest Pain 08/05/16 15:45 09/04/16 15:44 Ondansetron HCl (Zofran) 4 mg Q6H PRN IVP Nausea & Vomiting 08/05/16 15:45 09/04/16 15:44 Piperacillin Sod/ Tazobactam Sod/ Sodium Chloride (Zosyn/Sodium Chloride) 110 ml @ 27.5 mls/hr EVERY 8 HOURS IVPB 08/05/16 22:00 08/12/16 21:59 Polyethylene Glycol (Miralax) 17 gm HSPRN PRN ORAL Constipation 08/05/16 15:45 09/04/16 15:44 Temazepam (Restoril) 15 mg HSPRN PRN ORAL Insomnia 08/05/16 15:45 08/12/16 15:44 Tizanidine HCl 4 mg 4 mg BID ORAL 08/05/16 18:00 09/04/16 17:59 08/05/16 20:18 Vancomycin HCl 1 ea 1 ea DAILY PRN MISC Per rx protocol 08/05/16 15:45 09/04/16 15:44 Vancomycin HCl/ Dextrose (Vancomycin/D5W) 275 ml @ 183.708 mls/hr Q24H IVPB 08/05/16 19:00 08/10/16 18:59 08/05/16 18:52 KELLY LANDRY August 05, 2016 22:23
[2016-08-06] VITALS (7 sets, daily range): BP systolic 98–148; BP diastolic 55–86
[2016-08-06] MEDS: Morphine Sulfate 2mg/ml Inj IVP PRN ×6 (00:14→21:33)
[2016-08-06] MEDS: Piperacillin/Tazobactam 3.375 GM in NS 110 ML IVPB SCH ×3 (05:05→23:21)
[2016-08-06] MEDS: D5 1/2NS 1,000 ML IV SCH ×3 (05:08→23:00)
[2016-08-06 07:53] LABS: HEMOLYSIS 3; IRON 81 ug/dL (59-158); TOTAL IRON BINDING CAPACITY 184 ug/dL (250-400)
[2016-08-06 07:54] LABS: ALANINE AMINOTRANSFERASE 12 U/L (3-41); ALBUMIN/GLOBULIN RATIO 0.9 (1.0-2.7); AMYLASE 28 U/L (10-110); ANION GAP 16 (5-15); ASPARTATE AMINO TRANSFERASE 19 U/L (5-40); CALCIUM 8.7 mg/dL (8.6-10.2); CARBON DIOXIDE 23 mEQ/L (20-30); CHLORIDE 98 mEQ/L (98-107); CREATININE 1.1 mg/dL (0.7-1.2); GLOMERULAR FILTRATION RATE > 60 mL/min (>60); HEMOLYSIS 1; LIPASE 15 U/L (< 60); POTASSIUM 3.7 mEQ/L (3.4-4.9); SODIUM 137 mEQ/L (135-145); TOTAL PROTEIN 6.7 g/dL (6.6-8.7)
[2016-08-06 08:00] LABS: MEAN CORPUSCULAR HEMOGLOBIN 31.1 PG (27.0-31.0); MEAN CORPUSCULAR HGB CONC 30.6 G/DL (32.0-36.0); MEAN CORPUSCULAR VOLUME 102 FL (80-99); MEAN PLATELET VOLUME 11.7 FL (6.5-10.1); PLATELET COUNT 54 K/UL (150-450); RED BLOOD COUNT 2.28 M/UL (4.70-6.10); RED CELL DISTRIBUTION WIDTH 21.6 % (11.6-14.8)
[2016-08-06 08:07] LABS: BILIRUBIN,DIRECT 0.5 mg/dL (0.1-0.3)
[2016-08-06] MEDS ORDERED: Pantoprazole Inj IVP SCH (09:00)
[2016-08-06] MEDS: Heparin 5000 units/ml inj SUBQ SCH ×2 (09:00→21:00)
[2016-08-06 11:04] LABS: MYELOCYTES % 10 % (0-0); NUCLEATED RED BLOOD CELLS 1 /100 WBC
[2016-08-06 11:08] LABS: BAND NEUTROPHILS % (MANUAL) 6 % (0-8); BASOPHILS % (MANUAL) 0 % (0-2); BLAST% 2 % (0-0); EOSINOPHILS % (MANUAL) 3 % (0-3); LYMPHOCYTES % (MANUAL) 8 % (20-45); METAMYELOCYTES % 9 % (0-0); NEUTROPHILS % (MANUAL) 55 % (45-75); PLATELET ESTIMATE DECREASED; PLATELET MORPHOLOGY NORMAL; PROMYELOCYTES % 2 % (0-0); TOTAL CELLS COUNTED 100
[2016-08-06 11:09] LABS: ANISOCYTOSIS 3+; MACROCYTES 1+
[2016-08-06 11:10] LABS: HYPOCHROMASIA 2+; POLYCHROMASIA 1+
[2016-08-06] MEDS ORDERED: Heparin 2000 units/Ns 1000ml IV PRN (11:30)
[2016-08-06] MEDS ORDERED: Lidocaine 1% Plain 30 ml INJ PRN (11:30)
[2016-08-06] MEDS ORDERED: Sodium Bicarbonate 8.4% 50ml Inj IV ONE (12:30)
[2016-08-06 13:46] LABS: BAND NEUTROPHILS % (MANUAL) 7 % (0-8); BLAST% 3 % (0-0); EOSINOPHILS % (MANUAL) 1 % (0-3); LYMPHOCYTES % (MANUAL) 2 % (20-45); METAMYELOCYTES % 13 % (0-0); MYELOCYTES % 12 % (0-0); NEUTROPHILS % (MANUAL) 54 % (45-75); TOTAL CELLS COUNTED 100
[2016-08-06 13:47] LABS: ANISOCYTOSIS 3+; HYPOCHROMASIA 2+; MACROCYTES 1+; POLYCHROMASIA 1+
[2016-08-06 13:48] LABS: BASOPHILS % (MANUAL) 0 % (0-2); PLATELET ESTIMATE DECREASED; PLATELET MORPHOLOGY NORMAL
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
--- NOTE | 2016-08-06 16:30 | Diagnostic Imaging Report ---
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 The left upper extremity was prepped with alcohol. All elements of maximal sterile barrier technique were followed including usage of a cap, mask, sterile gown, sterile gloves, hand hygiene and a large sterile sheet. Sonographic evaluation of the upper extremity was performed demonstrating a patent and compressible brachial vein. Access was obtained under real-time ultrasound guidance and digital image was saved and archived. An .018 wire was introduced. Needle exchanged for a 5 [place] peel-away sheath. Measurements were obtained. A 5 [place] dual-lumen Power PICC line catheter was cut to 47 cm and introduced over the wire. Peel-away sheath and wire were removed.Catheter was secured to the skin using 2-0 Prolene suture. Both ports aspirate and flush easily. Fluoroscopic images show distal tip in the superior vena cava. total fluoroscopic time 0.3 minutes. Impression: Successful placement of an upper extremity PICC line catheter
[2016-08-06] MEDS: Docusate 100mg cap ORAL SCH (17:29)
[2016-08-06] MEDS: Miralax 17gm pkt ORAL SCH (21:32)
[2016-08-06] MEDS: Vancomycin 1gm in D5W 275ml IVPB SCH (21:51)
--- NOTE | 2016-08-06 22:13 | Pulmonology Progress Note ---
Subjective Allergies: Coded Allergies: OMEPRAZOLE (Unverified Allergy, Unknown, 01/23/15) Objective Last 24 Hour Vital Signs Date Time Temp Pulse Resp B/P Pulse Ox O2 Delivery O2 Flow Rate FiO2 08/06/16 20:00 98.2 84 18 118/63 100 Room Air 08/06/16 17:59 99.0 08/06/16 17:59 99.0 08/06/16 16:00 99.0 86 18 132/77 99 Room Air 08/06/16 12:02 98.1 72 16 98/55 100 Room Air 08/06/16 09:00 87 148/86 08/06/16 07:35 97.6 87 20 148/86 98 Room Air 08/06/16 04:52 97.7 90 16 107/62 95 Room Air 08/06/16 00:30 97.7 95 21 101/69 97 Room Air Intake and Output 08/05/16 08/06/16 19:00 07:00 Intake Total 955 ml 771.500 ml Output Total 650 ml Balance 955 ml 121.500 ml Intake Oral 0 ml IV Total 955 ml 771.500 ml Output Urine Total 650 ml # Bowel Movements 3 Laboratory Tests 08/06/16 07:00: White Blood Count 90.0*H, Red Blood Count 2.28L, Hemoglobin 7.1L, Hematocrit 23.2L, Mean Corpuscular Volume 102H, Mean Corpuscular Hemoglobin 31.1H, Mean Corpuscular Hemoglobin Concent 30.6L, Red Cell Distribution Width 21.6H, Platelet Count 54L, Mean Platelet Volume 11.7H, Neutrophils (%) (Auto) , Lymphocytes (%) (Auto) , Monocytes (%) (Auto) , Eosinophils (%) (Auto) , Basophils (%) (Auto) , Differential Total Cells Counted 100, Neutrophils % ( Manual) 55, Lymphocytes % (Manual) 8L, Monocytes % (Manual) 5, Eosinophils % ( Manual) 3, Basophils % (Manual) 0, Metamyelocytes % 9H, Myelocytes % 10H, Promyelocytes % 2H, Blast Cells % 2*H, Band Neutrophils 6, Nucleated Red Blood Cells 1, Platelet Estimate DecreasedL, Platelet Morphology Normal, Polychromasia 1+, Hypochromasia 2+, Anisocytosis 3+, Macrocytosis 1+, Activated Partial Thromboplast Time 35H, Sodium Level 137, Potassium Level 3.7, Chloride Level 98, Carbon Dioxide Level 23, Anion Gap 16H, Blood Urea Nitrogen 12, Creatinine 1.1, Estimat Glomerular Filtration Rate > 60, Glucose Level 154H, Calcium Level 8.7, Iron Level 81, Total Iron Binding Capacity 184L, Percent Iron Saturation 44, Unsaturated Iron Binding 103L, Total Bilirubin 1.5H, Direct Bilirubin 0.5H, Aspartate Amino Transf (AST/SGOT) 19, Alanine Aminotransferase ( ALT/SGPT) 12, Alkaline Phosphatase 119, Total Protein 6.7, Albumin 3.2L, Globulin 3.5, Albumin/Globulin Ratio 0.9L, Amylase Level 28, Lipase 15, Random Amikacin Level 9.3 Current Medications Medications (Trade) Dose Ordered Sig/Arash Route PRN Reason Start Time Stop Time Status Last Admin Dose Admin Acetaminophen (Tylenol) 650 mg Q4H PRN ORAL fever 08/05/16 15:45 09/04/16 15:44 Al Hydroxide/Mg Hydroxide (Mylanta II) 30 ml Q6H PRN ORAL dyspepsia 08/05/16 15:45 09/04/16 15:44 08/05/16 22:17 Amikacin Protocol (Amikacin pharmacy to dose) 1 ea DAILY PRN MISC Per rx protocol 08/05/16 15:45 09/04/16 15:44 Amikacin Sulfate/ Sodium Chloride (Amikin/Sodium Chloride) 59 ml @ 118 mls/hr Q36H IV 08/07/16 07:00 08/14/16 06:59 Amitriptyline HCl (Elavil) 25 mg BEDTIME ORAL 08/05/16 21:00 09/04/16 20:59 08/06/16 21:32 Amlodipine Besylate (Norvasc) 2.5 mg DAILY ORAL 08/06/16 09:00 09/05/16 08:59 08/06/16 09:00 Dextrose STAT PRN IV Hypoglycemia 08/05/16 15:45 09/04/16 15:44 Dextrose/Sodium Chloride (D5 0.45% NS) 1,000 ml @ 75 mls/hr [id number] IV 08/05/16 17:00 09/04/16 16:59 08/05/16 18:51 Diphenhydramine HCl (Benadryl) 25 mg Q6H PRN ORAL Itching/Pruritis 08/05/16 15:45 09/04/16 15:44 Docusate Sodium (Colace) 100 mg THREE TIMES A DAY ORAL 08/06/16 18:00 09/05/16 17:59 08/06/16 17:29 Heparin Sodium (Porcine) (Heparin 5000 units/ml) 5,000 units EVERY 12 HOURS SUBQ 08/05/16 21:00 09/04/16 20:59 Heparin Sodium/ Sodium Chloride (Heparin 2000 units/Ns 1000ml premix) 2,000 unit ONCE PRN IV PICC PLACEMENT 08/06/16 11:30 08/07/16 23:59 Hydrocortisone 1 applic 1 applic BIDPRN PRN RECTAL RECTAL PAIN 08/06/16 16:00 09/05/16 15:59 Lidocaine HCl (Xylocaine 1% 30ml) 30 ml ONCE PRN INJ PICC PLACEMENT 08/06/16 11:30 08/07/16 23:59 Morphine Sulfate (Morphine Sulfate) 2 mg Q4H PRN IVP severe Pain (Pain Scale 7-10) 08/05/16 15:45 08/12/16 15:44 08/06/16 21:33 Nitroglycerin (Ntg) 0.4 mg Q5M X 3 DOSES PRN SL Prn Chest Pain 08/05/16 15:45 09/04/16 15:44 Ondansetron HCl (Zofran) 4 mg Q6H PRN IVP Nausea & Vomiting 08/05/16 15:45 09/04/16 15:44 Piperacillin Sod/ Tazobactam Sod/ Sodium Chloride (Zosyn/Sodium Chloride) 110 ml @ 27.5 mls/hr EVERY 8 HOURS IVPB 08/05/16 22:00 08/12/16 21:59 08/06/16 05:05 Polyethylene Glycol (Miralax) 17 gm BEDTIME ORAL 08/06/16 21:00 09/05/16 20:59 08/06/16 21:32 Polyethylene Glycol (Miralax) 17 gm HSPRN PRN ORAL Constipation 08/05/16 15:45 09/04/16 15:44 Temazepam (Restoril) 15 mg HSPRN PRN ORAL Insomnia 08/05/16 15:45 08/12/16 15:44 Tizanidine HCl 4 mg 4 mg BID ORAL 08/05/16 18:00 09/04/16 17:59 08/06/16 17:29 Vancomycin HCl 1 ea 1 ea DAILY PRN MISC Per rx protocol 08/05/16 15:45 09/04/16 15:44 Vancomycin HCl/ Dextrose (Vancomycin/D5W) 275 ml @ 183.708 mls/hr Q24H IVPB 08/05/16 19:00 08/10/16 18:59 08/06/16 21:51 KELLY LANDRY August 06, 2016 22:13
--- NOTE | 2016-08-07 00:10 | Consultation ---
Consult Note Consult Note # [id number] INDERJIT BOYKIN M.D. August 07, 2016 00:10
[2016-08-07 04:00] VITALS: BP 133/76
--- NOTE | 2016-08-07 06:01 | Consultation ---
DATE OF CONSULTATION: INFECTIOUS DISEASE CONSULTATION: REFERRING PHYSICIAN: Annita Olivarez M.D. REASON FOR CONSULTATION: Evaluation of patient for possible sepsis and need for antibiotics. HISTORY OF PRESENT ILLNESS: The patient is a 56-year-old male with multiple medical problems, who was admitted to this medical center for nausea and vomiting. The patient was found to have significant leukocytosis with some blasts. The patient has history of recent E. coli urinary tract infection due to and perirectal abscess. Infectious consultation has been requested for further evaluation of the patient for possible for antibiotic treatment. PAST MEDICAL HISTORY: 1. History of urinary tract infection. 2. History of perirectal abscess. 3. History of paraplegia . 4. History of neurogenic bladder. MEDICATIONS: Amikacin, Zosyn, and vancomycin. ALLERGIES: Omeprazole. FAMILY HISTORY: Noncontributory. REVIEW OF SYSTEMS: A 10-point review was done and except what is mentioned has been negative.. PHYSICAL EXAMINATION: GENERAL: Temperature 98 degrees, pulse 86, respiratory rate 18, and blood pressure 123/76. HEENT: Mild pale conjunctivae. No icterus. NECK: No lymphadenopathy. CHEST: Coarse breathing sounds. HEART: S1 and S2. ABDOMEN: Soft and nontender. EXTREMITIES: No evidence of cellulitis or cyanosis. NEUROLOGIC: Awake and alert. LABORATORY AND DIAGNOSTIC DATA: WBC ____, hemoglobin 7, and platelets 54,000. Blood 2%. UA, 5-10 white blood cells. BUN 12 and creatinine 1.1. ALT, AST, and alkaline phosphatase overall unremarkable. ASSESSMENT: The patient is a 56-year-old male with multiple medical problems who has been admitted to this medical center with leukocytosis with blasts. The patient has also elevated white blood cells in the recent admission . The patient's workup suggestive of lymphoma and would benefit from Hematology evaluation have any infectious process at this time. PLAN: 1. We will hold off on antibiotics. 2. Monitor CBC and monitor BMP. 3. Monitor vital signs. 4. Recommend a Hematology Consultation. 5. Based on the patient's clinical course and labs, we will do further recommendation. Curtis Diaz M.D. DR: Deneen JOB#: [id number] CC:
[2016-08-07 06:43] LABS: MEAN CORPUSCULAR HEMOGLOBIN 31.1 PG (27.0-31.0); MEAN CORPUSCULAR HGB CONC 31.6 G/DL (32.0-36.0); MEAN CORPUSCULAR VOLUME 98 FL (80-99); MEAN PLATELET VOLUME 11.9 FL (6.5-10.1); PLATELET COUNT 45 K/UL (150-450); RED BLOOD COUNT 2.47 M/UL (4.70-6.10); RED CELL DISTRIBUTION WIDTH 20.7 % (11.6-14.8)
[2016-08-07 06:49] LABS: ANION GAP 13 (5-15); CALCIUM 8.3 mg/dL (8.6-10.2); CARBON DIOXIDE 24 mEQ/L (20-30); CHLORIDE 102 mEQ/L (98-107); CREATININE 0.9 mg/dL (0.7-1.2); GLOMERULAR FILTRATION RATE > 60 mL/min (>60); HEMOLYSIS 2; POTASSIUM 4.1 mEQ/L (3.4-4.9); SODIUM 139 mEQ/L (135-145)
[2016-08-07 06:57] LABS: WHITE BLOOD COUNT 74.5 K/UL (4.8-10.8)
[2016-08-07] MEDS: Morphine Sulfate 2mg/ml Inj IVP PRN ×4 (06:58→19:58)
[2016-08-07] MEDS ORDERED: AMIKACIN IV SCH (07:00)
[2016-08-07] MEDS ORDERED: NS IV SCH (07:00)
[2016-08-07 08:22] VITALS: BP 131/79
[2016-08-07] MEDS: Heparin 5000 units/ml inj SUBQ SCH ×2 (09:00→21:00)
[2016-08-07] MEDS: Docusate 100mg cap ORAL SCH ×3 (09:00→17:26)
--- NOTE | 2016-08-07 10:44 | GI Progress Note ---
Assessment/Plan Problems: (1) abdominal pain (2) Vomiting (3) Anemia ICD Codes: D64.9 - Anemia, unspecified SNOMED: 582013055 (4) Constipation ICD Codes: K59.00 - Constipation, unspecified SNOMED: 93445194 (5) Myeloproliferative disease ICD Codes: D47.1 - Chronic myeloproliferative disease SNOMED: 291751790 (6) Abdominal pain ICD Codes: R10.9 - Unspecified abdominal pain SNOMED: 44023847 Status: unchanged Status Narrative Discussed with . Assessment/Plan pathology >> suggestive myeloid neoplasm s/p colonoscopy x 4 polyps and unremarkable biopsy leukocytosis > downtrending APCT >> splenomegaly lipase unremarkable utox positive >> MJ iron panel unremarkable fu heme/oncology consult monitor H&H, transfuse prn OB stool uncollected, will consider EGD if positive ppi bowel regime >> miralax + colace anusol prn high fiber diet fu labs Subjective Subjective no GI complaints Objective Last 24 Hour Vital Signs Date Time Temp Pulse Resp B/P Pulse Ox O2 Delivery O2 Flow Rate FiO2 08/07/16 09:59 97.9 08/07/16 09:00 81 131/79 08/07/16 08:22 97.9 81 20 131/79 100 Room Air 08/07/16 07:28 98.4 08/07/16 04:00 98.4 86 18 133/76 99 Room Air 08/06/16 23:47 98.1 83 18 122/76 98 Room Air 08/06/16 20:00 98.2 84 18 118/63 100 Room Air 08/06/16 16:00 99.0 86 18 132/77 99 Room Air 08/06/16 12:02 98.1 72 16 98/55 100 Room Air Intake and Output 08/06/16 08/07/16 19:00 07:00 Intake Total 1182.5 ml 1355.000 ml Output Total 1250 ml 800 ml Balance -67.5 ml 555.000 ml Intake Oral 480 ml 480 ml IV Total 702.5 ml 875.000 ml Output Urine Total 1250 ml 800 ml # Voids 1 Laboratory Tests Test 08/07/16 06:00 White Blood Count 74.5 K/UL (4.8-10.8) *H Red Blood Count 2.47 M/UL (4.70-6.10) L Hemoglobin 7.7 G/DL (14.2-18.0) L Hematocrit 24.3 % (42.0-52.0) L Mean Corpuscular Volume 98 FL (80-99) Mean Corpuscular Hemoglobin 31.1 PG (27.0-31.0) H Mean Corpuscular Hemoglobin Concent 31.6 G/DL (32.0-36.0) L Red Cell Distribution Width 20.7 % (11.6-14.8) H Platelet Count 45 K/UL (150-450) L Mean Platelet Volume 11.9 FL (6.5-10.1) H Neutrophils (%) (Auto) % (45.0-75.0) Lymphocytes (%) (Auto) % (20.0-45.0) Monocytes (%) (Auto) % (1.0-10.0) Eosinophils (%) (Auto) % (0.0-3.0) Basophils (%) (Auto) % (0.0-2.0) Neutrophils % (Manual) Pending Lymphocytes % (Manual) Pending Platelet Estimate Pending Platelet Morphology Pending Sodium Level 139 mEQ/L (135-145) Potassium Level 4.1 mEQ/L (3.4-4.9) Chloride Level 102 mEQ/L (98-107) Carbon Dioxide Level 24 mEQ/L (20-30) Anion Gap 13 (5-15) Blood Urea Nitrogen 8 mg/dL (7-23) Creatinine 0.9 mg/dL (0.7-1.2) Estimat Glomerular Filtration Rate > 60 mL/min (>60) Glucose Level 134 mg/dL (74-106) H Calcium Level 8.3 mg/dL (8.6-10.2) L Height (Feet): 5 Height (Inches): 7.00 Weight (Pounds): 166 General Appearance: no apparent distress, alert Cardiovascular: normal rate Respiratory/Chest: normal breath sounds, no respiratory distress Abdominal Exam: normal bowel sounds, non tender, soft Nancy Fleming N.PJoan August 07, 2016 10:44
[2016-08-07] MEDS: D5 1/2NS 1,000 ML IV SCH (11:09)
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
[2016-08-07 11:18] LABS: ANISOCYTOSIS 2+; BAND NEUTROPHILS % (MANUAL) 2 % (0-8); BASOPHILS % (MANUAL) 0 % (0-2); BLAST% 5 % (0-0); EOSINOPHILS % (MANUAL) 2 % (0-3); HYPOCHROMASIA 1+; LYMPHOCYTES % (MANUAL) 7 % (20-45); METAMYELOCYTES % 6 % (0-0); MYELOCYTES % 10 % (0-0); NEUTROPHILS % (MANUAL) 57 % (45-75); PLATELET ESTIMATE DECREASED; PLATELET MORPHOLOGY NORMAL; PROMYELOCYTES % 8 % (0-0); TOTAL CELLS COUNTED 100
[2016-08-07 11:19] LABS: MACROCYTES 1+
[2016-08-07 11:41] VITALS: BP 102/61
[2016-08-07 13:11] LABS: PATH BLOOD SMEAR/OMC SENT TO PATHOLOGIST
--- NOTE | 2016-08-07 13:14 | Infectious Diseases Prog Note ---
Assessment/Plan Assessment/Plan A: The patient is a 56-year-old male with no evidence of Sepsis or an ID process leukocytosis with some blasts hx of perirectal abscess hx of UTI Splenomegaly Myeloproliferative disease hx of recent colonoscopy x 4 polyps and unremarkable biopsy Anemia Thrombocytopenia Nausea and vomiting , SP Paraplegia Hx of neurogenic bladder PLAN: Monitor pt o off on antibiotics Monitor CBC and monitor BMP Monitor vital signs. Hematology is following Subjective Allergies: Coded Allergies: OMEPRAZOLE (Unverified Allergy, Unknown, 01/23/15) Objective Vital Signs Last 24 Hour Vital Signs Date Time Temp Pulse Resp B/P Pulse Ox O2 Delivery O2 Flow Rate FiO2 08/07/16 11:41 98.1 72 20 102/61 98 Room Air 08/07/16 11:37 98.1 08/07/16 09:59 97.9 08/07/16 09:00 81 131/79 08/07/16 08:22 97.9 81 20 131/79 100 Room Air 08/07/16 04:00 98.4 86 18 133/76 99 Room Air 08/06/16 23:47 98.1 83 18 122/76 98 Room Air 08/06/16 20:00 98.2 84 18 118/63 100 Room Air 08/06/16 16:00 99.0 86 18 132/77 99 Room Air Height (Feet): 5 Height (Inches): 7.00 Weight (Pounds): 166 Microbiology Date/Time Source Procedure Growth Status 08/05/16 12:10 Nasal Nares MRSA Culture - Final NO METHICILLIN RESISTANT STAPH AUREUS... Complete 08/05/16 12:10 Rectum VRE Culture - Final NO VANCOMYCIN RESISTANT ENTEROCOCCUS ... Complete Laboratory Tests Test 08/07/16 06:00 White Blood Count 74.5 K/UL (4.8-10.8) *H Red Blood Count 2.47 M/UL (4.70-6.10) L Hemoglobin 7.7 G/DL (14.2-18.0) L Hematocrit 24.3 % (42.0-52.0) L Mean Corpuscular Volume 98 FL (80-99) Mean Corpuscular Hemoglobin 31.1 PG (27.0-31.0) H Mean Corpuscular Hemoglobin Concent 31.6 G/DL (32.0-36.0) L Red Cell Distribution Width 20.7 % (11.6-14.8) H Platelet Count 45 K/UL (150-450) L Mean Platelet Volume 11.9 FL (6.5-10.1) H Neutrophils (%) (Auto) % (45.0-75.0) Lymphocytes (%) (Auto) % (20.0-45.0) Monocytes (%) (Auto) % (1.0-10.0) Eosinophils (%) (Auto) % (0.0-3.0) Basophils (%) (Auto) % (0.0-2.0) Differential Total Cells Counted 100 Neutrophils % (Manual) 57 % (45-75) Lymphocytes % (Manual) 7 % (20-45) L Monocytes % (Manual) 3 % (1-10) Eosinophils % (Manual) 2 % (0-3) Basophils % (Manual) 0 % (0-2) Metamyelocytes % 6 % (0-0) H Myelocytes % 10 % (0-0) H Promyelocytes % 8 % (0-0) H Blast Cells % 5 % (0-0) *H Band Neutrophils 2 % (0-8) Platelet Estimate Decreased L Platelet Morphology Normal Hypochromasia 1+ Anisocytosis 2+ Macrocytosis 1+ Sodium Level 139 mEQ/L (135-145) Potassium Level 4.1 mEQ/L (3.4-4.9) Chloride Level 102 mEQ/L (98-107) Carbon Dioxide Level 24 mEQ/L (20-30) Anion Gap 13 (5-15) Blood Urea Nitrogen 8 mg/dL (7-23) Creatinine 0.9 mg/dL (0.7-1.2) Estimat Glomerular Filtration Rate > 60 mL/min (>60) Glucose Level 134 mg/dL (74-106) H Calcium Level 8.3 mg/dL (8.6-10.2) L Lactate Dehydrogenase 460 U/L (135-230) H Current Medications Medications (Trade) Dose Ordered Sig/Arash Route PRN Reason Start Time Stop Time Status Last Admin Dose Admin Acetaminophen (Tylenol) 650 mg Q4H PRN ORAL fever 08/05/16 15:45 09/04/16 15:44 Al Hydroxide/Mg Hydroxide (Mylanta II) 30 ml Q6H PRN ORAL dyspepsia 08/05/16 15:45 09/04/16 15:44 08/05/16 22:17 Amitriptyline HCl (Elavil) 25 mg BEDTIME ORAL 08/05/16 21:00 09/04/16 20:59 08/06/16 21:32 Amlodipine Besylate (Norvasc) 2.5 mg DAILY ORAL 08/06/16 09:00 09/05/16 08:59 08/07/16 09:00 Dextrose (Dextrose 50%) STAT PRN IV Hypoglycemia 08/05/16 15:45 09/04/16 15:44 Dextrose/Sodium Chloride (D5 0.45% NS) 1,000 ml @ 75 mls/hr [id number] IV 08/05/16 17:00 09/04/16 16:59 08/07/16 11:09 Diphenhydramine HCl (Benadryl) 25 mg Q6H PRN ORAL Itching/Pruritis 08/05/16 15:45 09/04/16 15:44 Docusate Sodium (Colace) 100 mg THREE TIMES A DAY ORAL 08/06/16 18:00 09/05/16 17:59 08/07/16 09:00 Heparin Sodium (Porcine) (Heparin 5000 units/ml) 5,000 units EVERY 12 HOURS SUBQ 08/05/16 21:00 09/04/16 20:59 Heparin Sodium/ Sodium Chloride (Heparin 2000 units/Ns 1000ml premix) 2,000 unit ONCE PRN IV PICC PLACEMENT 08/06/16 11:30 08/07/16 23:59 Hydrocortisone (Anusol HC) 1 applic BIDPRN PRN RECTAL RECTAL PAIN 08/06/16 16:00 09/05/16 15:59 Lidocaine HCl (Xylocaine 1% 30ml) 30 ml ONCE PRN INJ PICC PLACEMENT 08/06/16 11:30 08/07/16 23:59 Morphine Sulfate (Morphine Sulfate) 2 mg Q4H PRN IVP severe Pain (Pain Scale 7-10) 08/05/16 15:45 08/12/16 15:44 08/07/16 11:07 Nitroglycerin (Ntg) 0.4 mg Q5M X 3 DOSES PRN SL Prn Chest Pain 08/05/16 15:45 09/04/16 15:44 Ondansetron HCl (Zofran) 4 mg Q6H PRN IVP Nausea & Vomiting 08/05/16 15:45 09/04/16 15:44 Polyethylene Glycol (Miralax) 17 gm BEDTIME ORAL 08/06/16 21:00 09/05/16 20:59 08/06/16 21:32 Polyethylene Glycol (Miralax) 17 gm HSPRN PRN ORAL Constipation 08/05/16 15:45 09/04/16 15:44 Temazepam (Restoril) 15 mg HSPRN PRN ORAL Insomnia 08/05/16 15:45 08/12/16 15:44 08/07/16 00:12 Tizanidine HCl 4 mg 4 mg BID ORAL 08/05/16 18:00 09/04/16 17:59 08/07/16 09:00 INDERJIT BOYKIN M.D. August 07, 2016 13:14
[2016-08-07 15:59] VITALS: BP 131/75
--- NOTE | 2016-08-07 17:14 | Diagnostic Imaging Report ---
Indications: Elevated serum lipase, amylase, liver function tests; left-sided abdominal pain Technique: Transabdominal real-time grayscale and duplex Doppler imaging of the upper abdomen and retroperitoneum was performed. Findings: Comparison: CT abdomen pelvis 06/23/2016. Liver normal size and surface contour, parenchymal echogenicity. No focal lesions. Gallbladder unremarkable. No intraluminal stones or sludge. No mural thickening or adjacent fluid collections. Sonographic Garay sign negative.. Bile ducts normal caliber. Common bile duct 6 mm. Pancreas head and body unremarkable; tail obscured. Spleen 22 cm, small accessory splenule at hilum. No other focal lesions.. Right kidney unremarkable. Left kidney unremarkable. Proximal and mid abdominal aorta, intrahepatic portion of inferior vena cava patent, normal caliber. Distal abdominal aorta obscured. Duplex Doppler imaging demonstrates antegrade flow in splenic, portal, hepatic veins. No ascites. IMPRESSION: Marked splenomegaly, significantly increased from previous exam. Acute sclerotic process with swelling must be considered. Pancreatic tail, distal abdominal aorta obscured Remainder of exam unremarkable.
[2016-08-07 20:00] VITALS: BP 103/61
[2016-08-07] MEDS: Miralax 17gm pkt ORAL SCH (21:00)
[2016-08-07] MEDS ORDERED: D5 1/2NS 1000ml IV ONE (22:34)
[2016-08-07] MEDS ORDERED: Tubing Blood Filter IV ONE (22:34)
[2016-08-07] MEDS ORDERED: NS 275ml ONE (22:34)
[2016-08-07] MEDS ORDERED: Tubing IV Secondary IV ONE (22:34)
--- NOTE | 2016-08-07 23:09 | Pulmonology Progress Note ---
Subjective Allergies: Coded Allergies: OMEPRAZOLE (Unverified Allergy, Unknown, 01/23/15) Objective Last 24 Hour Vital Signs Date Time Temp Pulse Resp B/P Pulse Ox O2 Delivery O2 Flow Rate FiO2 08/07/16 20:00 98.4 72 20 103/61 100 Room Air 08/07/16 18:25 98.8 08/07/16 15:59 98.8 88 20 131/75 98 Room Air 08/07/16 15:55 98.8 08/07/16 11:41 98.1 72 20 102/61 98 Room Air 08/07/16 09:00 81 131/79 08/07/16 08:22 97.9 81 20 131/79 100 Room Air 08/07/16 04:00 98.4 86 18 133/76 99 Room Air 08/06/16 23:47 98.1 83 18 122/76 98 Room Air Intake and Output 08/06/16 08/07/16 19:00 07:00 Intake Total 1182.5 ml 1355.000 ml Output Total 1250 ml 800 ml Balance -67.5 ml 555.000 ml Intake Oral 480 ml 480 ml IV Total 702.5 ml 875.000 ml Output Urine Total 1250 ml 800 ml # Voids 1 Microbiology Date/Time Source Procedure Growth Status 08/05/16 12:10 Nasal Nares MRSA Culture - Final NO METHICILLIN RESISTANT STAPH AUREUS... Complete 08/05/16 12:10 Rectum VRE Culture - Final NO VANCOMYCIN RESISTANT ENTEROCOCCUS ... Complete Laboratory Tests 08/07/16 06:00: White Blood Count 74.5*H, Red Blood Count 2.47L, Hemoglobin 7.7L, Hematocrit 24.3L, Mean Corpuscular Volume 98, Mean Corpuscular Hemoglobin 31.1H, Mean Corpuscular Hemoglobin Concent 31.6L, Red Cell Distribution Width 20.7H, Platelet Count 45L, Mean Platelet Volume 11.9H, Neutrophils (%) (Auto) , Lymphocytes (%) (Auto) , Monocytes (%) (Auto) , Eosinophils (%) (Auto) , Basophils (%) (Auto) , Differential Total Cells Counted 100, Neutrophils % ( Manual) 57, Lymphocytes % (Manual) 7L, Monocytes % (Manual) 3, Eosinophils % ( Manual) 2, Basophils % (Manual) 0, Metamyelocytes % 6H, Myelocytes % 10H, Promyelocytes % 8H, Blast Cells % 5*H, Band Neutrophils 2, Platelet Estimate DecreasedL, Platelet Morphology Normal, Hypochromasia 1+, Anisocytosis 2+, Macrocytosis 1+, Sodium Level 139, Potassium Level 4.1, Chloride Level 102, Carbon Dioxide Level 24, Anion Gap 13, Blood Urea Nitrogen 8, Creatinine 0.9, Estimat Glomerular Filtration Rate > 60, Glucose Level 134H, Calcium Level 8.3L , Lactate Dehydrogenase 460H Current Medications Medications (Trade) Dose Ordered Sig/Arash Route PRN Reason Start Time Stop Time Status Last Admin Dose Admin Acetaminophen (Tylenol) 650 mg Q4H PRN ORAL fever 08/05/16 15:45 09/04/16 15:44 Al Hydroxide/Mg Hydroxide (Mylanta II) 30 ml Q6H PRN ORAL dyspepsia 08/05/16 15:45 09/04/16 15:44 08/05/16 22:17 Amitriptyline HCl (Elavil) 25 mg BEDTIME ORAL 08/05/16 21:00 09/04/16 20:59 08/07/16 21:21 Amlodipine Besylate (Norvasc) 2.5 mg DAILY ORAL 08/06/16 09:00 09/05/16 08:59 08/07/16 09:00 Dextrose (Dextrose 50%) STAT PRN IV Hypoglycemia 08/05/16 15:45 09/04/16 15:44 Dextrose/Sodium Chloride (D5 0.45% NS) 1,000 ml @ 75 mls/hr [id number] IV 08/05/16 17:00 09/04/16 16:59 08/07/16 11:09 Diphenhydramine HCl (Benadryl) 25 mg Q6H PRN ORAL Itching/Pruritis 08/05/16 15:45 09/04/16 15:44 Docusate Sodium (Colace) 100 mg THREE TIMES A DAY ORAL 08/06/16 18:00 09/05/16 17:59 08/07/16 17:26 Heparin Sodium (Porcine) (Heparin 5000 units/ml) 5,000 units EVERY 12 HOURS SUBQ 08/05/16 21:00 09/04/16 20:59 Heparin Sodium/ Sodium Chloride (Heparin 2000 units/Ns 1000ml premix) 2,000 unit ONCE PRN IV PICC PLACEMENT 08/06/16 11:30 08/07/16 23:59 Hydrocortisone (Anusol HC) 1 applic BIDPRN PRN RECTAL RECTAL PAIN 08/06/16 16:00 09/05/16 15:59 Lidocaine HCl (Xylocaine 1% 30ml) 30 ml ONCE PRN INJ PICC PLACEMENT 08/06/16 11:30 08/07/16 23:59 Morphine Sulfate (Morphine Sulfate) 2 mg Q4H PRN IVP severe Pain (Pain Scale 7-10) 08/05/16 15:45 08/12/16 15:44 08/07/16 19:58 Nitroglycerin (Ntg) 0.4 mg Q5M X 3 DOSES PRN SL Prn Chest Pain 08/05/16 15:45 09/04/16 15:44 Ondansetron HCl (Zofran) 4 mg Q6H PRN IVP Nausea & Vomiting 08/05/16 15:45 09/04/16 15:44 Polyethylene Glycol (Miralax) 17 gm BEDTIME ORAL 08/06/16 21:00 09/05/16 20:59 08/06/16 21:32 Polyethylene Glycol (Miralax) 17 gm HSPRN PRN ORAL Constipation 08/05/16 15:45 09/04/16 15:44 Temazepam (Restoril) 15 mg HSPRN PRN ORAL Insomnia 08/05/16 15:45 08/12/16 15:44 08/07/16 00:12 Tizanidine HCl 4 mg 4 mg BID ORAL 08/05/16 18:00 09/04/16 17:59 08/07/16 17:26 KELLY LANDRY August 07, 2016 23:09
[2016-08-08] VITALS: BP 119/76
[2016-08-08] MEDS: Morphine Sulfate 2mg/ml Inj IVP PRN ×3 (01:30→12:08)
[2016-08-08] MEDS: D5 1/2NS 1,000 ML IV SCH (03:28)
[2016-08-08 04:00] VITALS: BP 129/79
[2016-08-08 04:10] LABS: MEAN CORPUSCULAR HEMOGLOBIN 30.4 PG (27.0-31.0); MEAN CORPUSCULAR HGB CONC 31.9 G/DL (32.0-36.0); MEAN CORPUSCULAR VOLUME 95 FL (80-99); MEAN PLATELET VOLUME 10.6 FL (6.5-10.1); PLATELET COUNT 41 K/UL (150-450); RED CELL DISTRIBUTION WIDTH 19.3 % (11.6-14.8)
[2016-08-08 04:21] LABS: WHITE BLOOD COUNT 66.8 K/UL (4.8-10.8)
[2016-08-08 04:29] LABS: ANION GAP 11 (5-15); CALCIUM 8.1 mg/dL (8.6-10.2); CARBON DIOXIDE 24 mEQ/L (20-30); CHLORIDE 105 mEQ/L (98-107); CREATININE 0.8 mg/dL (0.7-1.2); GLOMERULAR FILTRATION RATE > 60 mL/min (>60); HEMOLYSIS 1; POTASSIUM 3.9 mEQ/L (3.4-4.9); SODIUM 140 mEQ/L (135-145)
[2016-08-08 05:27] LABS: BAND NEUTROPHILS % (MANUAL) 14 % (0-8); BASOPHILS % (MANUAL) 0 % (0-2); BLAST% 2 % (0-0); EOSINOPHILS % (MANUAL) 2 % (0-3); LYMPHOCYTES % (MANUAL) 22 % (20-45); METAMYELOCYTES % 3 % (0-0); MYELOCYTES % 3 % (0-0); NEUTROPHILS % (MANUAL) 51 % (45-75); PLATELET ESTIMATE DECREASED; TOTAL CELLS COUNTED 100
[2016-08-08 05:28] LABS: ANISOCYTOSIS 1+; PLATELET MORPHOLOGY NORMAL; POIKILOCYTOSIS 1+
[2016-08-08 08:00] VITALS: BP 140/80
[2016-08-08] MEDS: Docusate 100mg cap ORAL SCH ×2 (08:07→12:08)
[2016-08-08] MEDS: Heparin 5000 units/ml inj SUBQ SCH (08:11)
--- NOTE | 2016-08-08 08:42 | Infectious Diseases Prog Note ---
Assessment/Plan Assessment/Plan A: The patient is a 56-year-old male with no evidence of Sepsis leukocytosis with some blasts, afebrile hx of perirectal abscess hx of UTI Splenomegaly Myeloproliferative disease hx of recent colonoscopy x 4 polyps and unremarkable biopsy Anemia Thrombocytopenia Nausea and vomiting , SP Paraplegia Hx of neurogenic bladder No ABX allergies Full Code PLAN: Monitor pt off of antibiotics Monitor CBC and monitor BMP Monitor vital signs. Hematology is following Subjective Allergies: Coded Allergies: OMEPRAZOLE (Unverified Allergy, Unknown, 01/23/15) Subjective remains afebrile dec WBC Objective Vital Signs Last 24 Hour Vital Signs Date Time Temp Pulse Resp B/P Pulse Ox O2 Delivery O2 Flow Rate FiO2 08/08/16 08:09 80 140/80 08/08/16 08:02 96.3 08/08/16 04:00 96.3 73 20 129/79 98 08/08/16 00:00 97.9 78 20 119/76 93 Room Air 08/07/16 20:00 98.4 72 20 103/61 100 Room Air 08/07/16 18:25 98.8 08/07/16 15:59 98.8 88 20 131/75 98 Room Air 08/07/16 11:41 98.1 72 20 102/61 98 Room Air 08/07/16 09:00 81 131/79 Height (Feet): 5 Height (Inches): 7.00 Weight (Pounds): 166 General Appearance: no acute distress Respiratory/Chest: no respiratory distress Cardiovascular: normal rate, regular rhythm Abdomen: normal bowel sounds, soft, non tender, non distended Microbiology Date/Time Source Procedure Growth Status 08/05/16 12:10 Nasal Nares MRSA Culture - Final NO METHICILLIN RESISTANT STAPH AUREUS... Complete 08/05/16 12:10 Rectum VRE Culture - Final NO VANCOMYCIN RESISTANT ENTEROCOCCUS ... Complete Laboratory Tests Test 08/08/16 00:15 08/08/16 04:00 Stool Occult Blood Negative (NEGATIVE) White Blood Count 66.8 K/UL (4.8-10.8) *H Red Blood Count 2.80 M/UL (4.70-6.10) L Hemoglobin 8.5 G/DL (14.2-18.0) L Hematocrit 26.7 % (42.0-52.0) L Mean Corpuscular Volume 95 FL (80-99) Mean Corpuscular Hemoglobin 30.4 PG (27.0-31.0) Mean Corpuscular Hemoglobin Concent 31.9 G/DL (32.0-36.0) L Red Cell Distribution Width 19.3 % (11.6-14.8) H Platelet Count 41 K/UL (150-450) L Mean Platelet Volume 10.6 FL (6.5-10.1) H Neutrophils (%) (Auto) % (45.0-75.0) Lymphocytes (%) (Auto) % (20.0-45.0) Monocytes (%) (Auto) % (1.0-10.0) Eosinophils (%) (Auto) % (0.0-3.0) Basophils (%) (Auto) % (0.0-2.0) Differential Total Cells Counted 100 Neutrophils % (Manual) 51 % (45-75) Lymphocytes % (Manual) 22 % (20-45) Monocytes % (Manual) 3 % (1-10) Eosinophils % (Manual) 2 % (0-3) Basophils % (Manual) 0 % (0-2) Metamyelocytes % 3 % (0-0) H Myelocytes % 3 % (0-0) H Blast Cells % 2 % (0-0) *H Band Neutrophils 14 % (0-8) H Platelet Estimate Decreased L Platelet Morphology Normal Poikilocytosis 1+ Anisocytosis 1+ Sodium Level 140 mEQ/L (135-145) Potassium Level 3.9 mEQ/L (3.4-4.9) Chloride Level 105 mEQ/L (98-107) Carbon Dioxide Level 24 mEQ/L (20-30) Anion Gap 11 (5-15) Blood Urea Nitrogen 7 mg/dL (7-23) Creatinine 0.8 mg/dL (0.7-1.2) Estimat Glomerular Filtration Rate > 60 mL/min (>60) Glucose Level 116 mg/dL (74-106) H Calcium Level 8.1 mg/dL (8.6-10.2) L Current Medications Medications (Trade) Dose Ordered Sig/Arash Route PRN Reason Start Time Stop Time Status Last Admin Dose Admin Acetaminophen (Tylenol) 650 mg Q4H PRN ORAL fever 08/05/16 15:45 09/04/16 15:44 Al Hydroxide/Mg Hydroxide (Mylanta II) 30 ml Q6H PRN ORAL dyspepsia 08/05/16 15:45 09/04/16 15:44 08/05/16 22:17 Amitriptyline HCl (Elavil) 25 mg BEDTIME ORAL 08/05/16 21:00 09/04/16 20:59 08/07/16 21:21 Amlodipine Besylate (Norvasc) 2.5 mg DAILY ORAL 08/06/16 09:00 09/05/16 08:59 08/08/16 08:09 Dextrose (Dextrose 50%) STAT PRN IV Hypoglycemia 08/05/16 15:45 09/04/16 15:44 Dextrose/Sodium Chloride (D5 0.45% NS) 1,000 ml @ 75 mls/hr [id number] IV 08/05/16 17:00 09/04/16 16:59 08/08/16 03:28 Diphenhydramine HCl (Benadryl) 25 mg Q6H PRN ORAL Itching/Pruritis 08/05/16 15:45 09/04/16 15:44 08/08/16 04:44 Docusate Sodium (Colace) 100 mg THREE TIMES A DAY ORAL 08/06/16 18:00 09/05/16 17:59 08/08/16 08:07 Heparin Sodium (Porcine) (Heparin 5000 units/ml) 5,000 units EVERY 12 HOURS SUBQ 08/05/16 21:00 09/04/16 20:59 Hydrocortisone (Anusol HC) 1 applic BIDPRN PRN RECTAL RECTAL PAIN 08/06/16 16:00 09/05/16 15:59 Morphine Sulfate (Morphine Sulfate) 2 mg Q4H PRN IVP severe Pain (Pain Scale 7-10) 08/05/16 15:45 08/12/16 15:44 08/08/16 07:32 Nitroglycerin (Ntg) 0.4 mg Q5M X 3 DOSES PRN SL Prn Chest Pain 08/05/16 15:45 09/04/16 15:44 Ondansetron HCl (Zofran) 4 mg Q6H PRN IVP Nausea & Vomiting 08/05/16 15:45 09/04/16 15:44 Polyethylene Glycol (Miralax) 17 gm BEDTIME ORAL 5/17/17 21:00 09/05/16 20:59 08/06/16 21:32 Polyethylene Glycol (Miralax) 17 gm HSPRN PRN ORAL Constipation 08/05/16 15:45 09/04/16 15:44 Temazepam (Restoril) 15 mg HSPRN PRN ORAL Insomnia 08/05/16 15:45 08/12/16 15:44 08/07/16 00:12 Tizanidine HCl 4 mg 4 mg BID ORAL 08/05/16 18:00 09/04/16 17:59 08/08/16 08:07 RAMA HERNANDEZ August 08, 2016 08:42
[2016-08-08] MEDS ORDERED: Dyna-Hex 2% Top Sol 8oz TOPIC SCH (10:00)
--- NOTE | 2016-08-08 10:08 | Pulmonology Progress Note ---
Assessment/Plan Assessment/Plan ASSESSMENT progressive pancytopenia hx of bone marrow fibrosis myeloproliferative disease abdominal pain thrombocytopenia anemia s/p blood transfusion paraplegia neurogenic bladder constipation HTN PLAN OF CARE MS floor IVF ID follows as per ID monitor off abx; no evidence of sepsis or infectious process heme follows peripheral blood smear reviewed: blasts 1-5% peripherally circulated further workup as per heme abdominal US with marked splenomegaly , no ascites splenomegaly likely r/t myeloproliferative disorder GI follows stool OB negative lipase WNL stable transaminates and elevated T/D bili ( trending down) pain management PLT trending down ; will dc heparin check Venous Duplex BLE and apply SCD if negative BP management with CCB, optimize as needed bowel regimen high fiber diet case discussed and evaluated by supervising physician Subjective Allergies: Coded Allergies: OMEPRAZOLE (Unverified Allergy, Unknown, 01/23/15) Subjective denies chest pain, SOB leukocytosis trending down, still significant, afebrile Objective Last 24 Hour Vital Signs Date Time Temp Pulse Resp B/P Pulse Ox O2 Delivery O2 Flow Rate FiO2 08/08/16 09:06 96.3 08/08/16 08:09 80 140/80 08/08/16 08:02 96.3 08/08/16 08:00 97.0 80 18 140/80 98 Room Air 08/08/16 04:00 96.3 73 20 129/79 98 08/08/16 00:00 97.9 78 20 119/76 93 Room Air 08/07/16 20:00 98.4 72 20 103/61 100 Room Air 08/07/16 15:59 98.8 88 20 131/75 98 Room Air 08/07/16 11:41 98.1 72 20 102/61 98 Room Air Intake and Output 08/07/16 08/08/16 19:00 07:00 Intake Total 1035 ml Output Total 800 ml Balance 1035 ml -800 ml Intake Oral 360 ml IV Total 675 ml Output Urine Total 800 ml # Bowel Movements 1 2 General Appearance: no acute distress, other - A/A/O x 3 AA male HEENT: normocephalic, atraumatic, anicteric, mucous membranes moist, PERRL Respiratory/Chest: normal breath sounds, no respiratory distress, no accessory muscle use Cardiovascular: normal rate, regular rhythm, no JVD Abdomen: normal bowel sounds, soft, non tender, non distended Genitourinary: normal external genitalia Extremities: no edema, other - paraplegia BLE Neurologic/Psychiatric: abnormal gait - paraplegic BLE , alert, oriented x 3, responsive Musculoskeletal: atrophy - BLE Microbiology Date/Time Source Procedure Growth Status 08/05/16 12:10 Nasal Nares MRSA Culture - Final NO METHICILLIN RESISTANT STAPH AUREUS... Complete 08/05/16 12:10 Rectum VRE Culture - Final NO VANCOMYCIN RESISTANT ENTEROCOCCUS ... Complete Laboratory Tests 08/08/16 00:15: Stool Occult Blood Negative 08/08/16 04:00: White Blood Count 66.8*H, Red Blood Count 2.80L, Hemoglobin 8.5L, Hematocrit 26.7L, Mean Corpuscular Volume 95, Mean Corpuscular Hemoglobin 30.4, Mean Corpuscular Hemoglobin Concent 31.9L, Red Cell Distribution Width 19.3H, Platelet Count 41L, Mean Platelet Volume 10.6H, Neutrophils (%) (Auto) , Lymphocytes (%) (Auto) , Monocytes (%) (Auto) , Eosinophils (%) (Auto) , Basophils (%) (Auto) , Differential Total Cells Counted 100, Neutrophils % ( Manual) 51, Lymphocytes % (Manual) 22, Monocytes % (Manual) 3, Eosinophils % ( Manual) 2, Basophils % (Manual) 0, Metamyelocytes % 3H, Myelocytes % 3H, Blast Cells % 2*H, Band Neutrophils 14H, Platelet Estimate DecreasedL, Platelet Morphology Normal, Poikilocytosis 1+, Anisocytosis 1+, Sodium Level 140, Potassium Level 3.9, Chloride Level 105, Carbon Dioxide Level 24, Anion Gap 11, Blood Urea Nitrogen 7, Creatinine 0.8, Estimat Glomerular Filtration Rate > 60, Glucose Level 116H, Calcium Level 8.1L Current Medications Medications (Trade) Dose Ordered Sig/Arash Route PRN Reason Start Time Stop Time Status Last Admin Dose Admin Acetaminophen (Tylenol) 650 mg Q4H PRN ORAL fever 08/05/16 15:45 09/04/16 15:44 Al Hydroxide/Mg Hydroxide (Mylanta II) 30 ml Q6H PRN ORAL dyspepsia 08/05/16 15:45 09/04/16 15:44 08/05/16 22:17 Amitriptyline HCl (Elavil) 25 mg BEDTIME ORAL 08/05/16 21:00 6/15/17 20:59 08/07/16 21:21 Amlodipine Besylate (Norvasc) 2.5 mg DAILY ORAL 08/06/16 09:00 09/05/16 08:59 08/08/16 08:09 Chlorhexidine Gluconate (Valerie-Hex 2%) 1 applic DAILY TOPIC 08/08/16 10:00 09/07/16 09:59 08/08/16 09:34 Dextrose (Dextrose 50%) STAT PRN IV Hypoglycemia 08/05/16 15:45 09/04/16 15:44 Dextrose/Sodium Chloride (D5 0.45% NS) 1,000 ml @ 75 mls/hr [id number] IV 08/05/16 17:00 09/04/16 16:59 08/08/16 03:28 Diphenhydramine HCl (Benadryl) 25 mg Q6H PRN ORAL Itching/Pruritis 08/05/16 15:45 09/04/16 15:44 08/08/16 04:44 Docusate Sodium (Colace) 100 mg THREE TIMES A DAY ORAL 08/06/16 18:00 09/05/16 17:59 08/08/16 08:07 Heparin Sodium (Porcine) (Heparin 5000 units/ml) 5,000 units EVERY 12 HOURS SUBQ 08/05/16 21:00 09/04/16 20:59 Hydrocortisone (Anusol HC) 1 applic BIDPRN PRN RECTAL RECTAL PAIN 08/06/16 16:00 09/05/16 15:59 Morphine Sulfate (Morphine Sulfate) 2 mg Q4H PRN IVP severe Pain (Pain Scale 7-10) 08/05/16 15:45 08/12/16 15:44 08/08/16 07:32 Nitroglycerin (Ntg) 0.4 mg Q5M X 3 DOSES PRN SL Prn Chest Pain 08/05/16 15:45 09/04/16 15:44 Ondansetron HCl (Zofran) 4 mg Q6H PRN IVP Nausea & Vomiting 08/05/16 15:45 09/04/16 15:44 Polyethylene Glycol (Miralax) 17 gm BEDTIME ORAL 08/06/16 21:00 09/05/16 20:59 08/06/16 21:32 Polyethylene Glycol (Miralax) 17 gm HSPRN PRN ORAL Constipation 08/05/16 15:45 09/04/16 15:44 Temazepam (Restoril) 15 mg HSPRN PRN ORAL Insomnia 08/05/16 15:45 08/12/16 15:44 08/07/16 00:12 Tizanidine HCl 4 mg 4 mg BID ORAL 08/05/16 18:00 09/04/16 17:59 08/08/16 08:07 Alber[facility] GarciaMohansic State HospitalDanuta Rodrigez NP August 08, 2016 10:08
--- NOTE | 2016-08-08 10:24 | GI Progress Note ---
Assessment/Plan Problems: (1) abdominal pain (2) Vomiting (3) Anemia ICD Codes: D64.9 - Anemia, unspecified SNOMED: 237212691 (4) Constipation ICD Codes: K59.00 - Constipation, unspecified SNOMED: 80951619 (5) Myeloproliferative disease ICD Codes: D47.1 - Chronic myeloproliferative disease SNOMED: 618733382 (6) Abdominal pain ICD Codes: R10.9 - Unspecified abdominal pain SNOMED: 46752266 Status: progressing, unchanged Status Narrative Discussed with Dr. Madden. Assessment/Plan pathology >> suggestive myeloid neoplasm s/p colonoscopy x 4 polyps and unremarkable biopsy leukocytosis > downtrending APCT >> splenomegaly lipase unremarkable utox positive >> MJ iron panel unremarkable OB stool negative fu heme/oncology consult monitor H&H, transfuse prn ppi bowel regime >> miralax + colace anusol prn high fiber diet fu labs Subjective Subjective no GI complaints Objective Last 24 Hour Vital Signs Date Time Temp Pulse Resp B/P Pulse Ox O2 Delivery O2 Flow Rate FiO2 08/08/16 09:06 96.3 08/08/16 08:09 80 140/80 08/08/16 08:02 96.3 08/08/16 08:00 97.0 80 18 140/80 98 Room Air 08/08/16 04:00 96.3 73 20 129/79 98 08/08/16 00:00 97.9 78 20 119/76 93 Room Air 08/07/16 20:00 98.4 72 20 103/61 100 Room Air 08/07/16 15:59 98.8 88 20 131/75 98 Room Air 08/07/16 11:41 98.1 72 20 102/61 98 Room Air Intake and Output 08/07/16 08/08/16 19:00 07:00 Intake Total 1035 ml Output Total 800 ml Balance 1035 ml -800 ml Intake Oral 360 ml IV Total 675 ml Output Urine Total 800 ml # Bowel Movements 1 2 Laboratory Tests Test 08/08/16 00:15 08/08/16 04:00 Stool Occult Blood Negative (NEGATIVE) White Blood Count 66.8 K/UL (4.8-10.8) *H Red Blood Count 2.80 M/UL (4.70-6.10) L Hemoglobin 8.5 G/DL (14.2-18.0) L Hematocrit 26.7 % (42.0-52.0) L Mean Corpuscular Volume 95 FL (80-99) Mean Corpuscular Hemoglobin 30.4 PG (27.0-31.0) Mean Corpuscular Hemoglobin Concent 31.9 G/DL (32.0-36.0) L Red Cell Distribution Width 19.3 % (11.6-14.8) H Platelet Count 41 K/UL (150-450) L Mean Platelet Volume 10.6 FL (6.5-10.1) H Neutrophils (%) (Auto) % (45.0-75.0) Lymphocytes (%) (Auto) % (20.0-45.0) Monocytes (%) (Auto) % (1.0-10.0) Eosinophils (%) (Auto) % (0.0-3.0) Basophils (%) (Auto) % (0.0-2.0) Differential Total Cells Counted 100 Neutrophils % (Manual) 51 % (45-75) Lymphocytes % (Manual) 22 % (20-45) Monocytes % (Manual) 3 % (1-10) Eosinophils % (Manual) 2 % (0-3) Basophils % (Manual) 0 % (0-2) Metamyelocytes % 3 % (0-0) H Myelocytes % 3 % (0-0) H Blast Cells % 2 % (0-0) *H Band Neutrophils 14 % (0-8) H Platelet Estimate Decreased L Platelet Morphology Normal Poikilocytosis 1+ Anisocytosis 1+ Sodium Level 140 mEQ/L (135-145) Potassium Level 3.9 mEQ/L (3.4-4.9) Chloride Level 105 mEQ/L (98-107) Carbon Dioxide Level 24 mEQ/L (20-30) Anion Gap 11 (5-15) Blood Urea Nitrogen 7 mg/dL (7-23) Creatinine 0.8 mg/dL (0.7-1.2) Estimat Glomerular Filtration Rate > 60 mL/min (>60) Glucose Level 116 mg/dL (74-106) H Calcium Level 8.1 mg/dL (8.6-10.2) L Height (Feet): 5 Height (Inches): 7.00 Weight (Pounds): 166 General Appearance: no apparent distress, alert Cardiovascular: normal rate Respiratory/Chest: normal breath sounds, no respiratory distress Abdominal Exam: normal bowel sounds, non tender Extremities: normal range of motion Nancy Fleming N.P. August 08, 2016 10:24
[2016-08-08 12:15] VITALS: BP 136/81
[2016-08-08] MEDS ORDERED: D5 1/2NS 1000ml IV ONE (13:44)
[2016-08-08] MEDS ORDERED: Tubing IV Blood Pump IV ONE (13:44)
[2016-08-08] MEDS ORDERED: NS 275ml ONE (13:44)
--- NOTE | 2016-08-08 18:29 | General Progress Note ---
Assessment/Plan Assessment/Plan Assessment and Recs: # Pancytopenia, progressive - have reviewed prior bone marrow biopsy and have talked to Dr. Hipolito Matthews, patient with hx of bone marrow fibrosis, however currently has not had a bcr-abl or JAK2 status checked, this will be checked shortly. In addition, has splenomegaly, in addition has peripheral circulating blasts at approximately 1-5%, have not worsened, in addition, has a leukoerythroblastic component to the peripheral smear with early myeloid cells ( metamyelocytes and myelocytes), this all adds up to a clinical picture consistent with a myeloproliferative disorder (this includes CML and primary myelofibrosis vs a PMF/MDS disorder). BCR-ABL is pending as is LDH and Sven test to r/o hemolysis. Continue hydroxyurea. Counselled to stay, but pt left AMA. 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 # Myeloproliferative disease # abdominal pain # Vomiting # Constipation # Paraplegia # GREATLY Appreciate Consultation Subjective Constitutional: Reports: no symptoms HEENT: Reports: no symptoms Cardiovascular: Reports: no symptoms Respiratory: Reports: no symptoms Gastrointestinal/Abdominal: Reports: no symptoms Genitourinary: Reports: no symptoms Neurologic/Psychiatric: Reports: no symptoms Endocrine: Reports: no symptoms Hematologic/Lymphatic: Reports: anemia, no symptoms Allergies: Coded Allergies: OMEPRAZOLE (Unverified Allergy, Unknown, 01/23/15) Subjective pt left AMA Objective Last 24 Hour Vital Signs Date Time Temp Pulse Resp B/P Pulse Ox O2 Delivery O2 Flow Rate FiO2 08/08/16 12:38 96.3 08/08/16 12:15 98.7 83 21 136/81 99 Room Air 08/08/16 09:06 96.3 08/08/16 08:09 80 140/80 08/08/16 08:00 97.0 80 18 140/80 98 Room Air 08/08/16 04:00 96.3 73 20 129/79 98 08/08/16 00:00 97.9 78 20 119/76 93 Room Air 08/07/16 20:00 98.4 72 20 103/61 100 Room Air Intake and Output 08/07/16 08/08/16 18:59 06:59 Intake Total 1110 ml Output Total 800 ml Balance 1110 ml -800 ml Intake Oral 360 ml IV Total 750 ml Output Urine Total 800 ml # Bowel Movements 1 2 Laboratory Tests 08/08/16 00:15: Stool Occult Blood Negative 08/08/16 04:00: White Blood Count 66.8*H, Red Blood Count 2.80L, Hemoglobin 8.5L, Hematocrit 26.7L, Mean Corpuscular Volume 95, Mean Corpuscular Hemoglobin 30.4, Mean Corpuscular Hemoglobin Concent 31.9L, Red Cell Distribution Width 19.3H, Platelet Count 41L, Mean Platelet Volume 10.6H, Neutrophils (%) (Auto) , Lymphocytes (%) (Auto) , Monocytes (%) (Auto) , Eosinophils (%) (Auto) , Basophils (%) (Auto) , Differential Total Cells Counted 100, Neutrophils % ( Manual) 51, Lymphocytes % (Manual) 22, Monocytes % (Manual) 3, Eosinophils % ( Manual) 2, Basophils % (Manual) 0, Metamyelocytes % 3H, Myelocytes % 3H, Blast Cells % 2*H, Band Neutrophils 14H, Platelet Estimate DecreasedL, Platelet Morphology Normal, Poikilocytosis 1+, Anisocytosis 1+, Sodium Level 140, Potassium Level 3.9, Chloride Level 105, Carbon Dioxide Level 24, Anion Gap 11, Blood Urea Nitrogen 7, Creatinine 0.8, Estimat Glomerular Filtration Rate > 60, Glucose Level 116H, Calcium Level 8.1L Height (Feet): 5 Height (Inches): 7.00 Weight (Pounds): 166 General Appearance: WD/WN EENT: PERRL/EOMI Neck: non-tender Cardiovascular: normal peripheral pulses Respiratory/Chest: chest wall non-tender Abdomen: normal bowel sounds Extremities: non-tender Edema: no edema noted Leg (L), no edema noted Leg (R) Skin: warm/dry Bennett Sheets August 08, 2016 18:28
--- NOTE | 2016-08-11 09:58 | Discharge Summary ---
Discharge Summary Hospital Course Date of Admission August 05, 2016 at 12:33 Date of Discharge August 08, 2016 at 13:45 Admitting Diagnosis abdominal pain HPI Zachery Berger is a 56 year old male who was admitted on August 05, 2016 at 12:33 for Abdominal Pain Hospital Course dc summary #[id number] Discharge Discharge Disposition Patient signed AMA Discharge Diagnoses: Discharge Instructions Discharge Instructions Special Instructions I have been assigned to complete a D/C Summary on this account. I was not involved in the patient management Danuta Dominguez NP (Vanchtein) August 11, 2016 09:58
--- NOTE | 2016-08-12 | Discharge Summary 2 SIG ---
DATE OF ADMISSION: 08/05/2016 DATE OF DISCHARGE: 08/08/2016 REASON FOR ADMISSION: The patient is a 56-year-old male with history of colon cancer, presented to emergency room with abdominal pain and vomiting. He described pain as a left-sided and pain has been present since he has polyp removal. The patient has a history of colon cancer. Motrin at home only helped minimally. The patient had episodes of vomiting and unable to keep down solids or mass. No blood. He denied blood in the urine. He denies blood in the emesis. He denies blood in the stool. The patient self catheterized himself as well as disimpacting himself. The pain was described as 9/10 sharp and nonradiating. The patient is seeing a chronic pain specialist. Workup in the emergency room revealed a white blood count of 98.4. According to the patient, he had a bone marrow done, but does note the result. Hemoglobin was 7.4, hematocrit 24.6, and platelets 71,000 and also seen blood cells. The patient was admitted for further management. ADMITTING DIAGNOSES: Include, 1. Myeloproliferative disorder. 2. Abdominal pain. 3. Possible urinary tract infection. 4. History of colon cancer. 5. Urinalysis revealed +1 leukocyte esterase, 5 to 10 WBC, and few bacteria. HOSPITAL COURSE: The patient was admitted. GI consult was requested. The patient was started on IV fluids. ID specialist consult requested along with GI consult. Pain management was provided. Per ID specialist, no need for antibiotics. No evidence of sepsis or infectious process. Urine culture was negative and leukocytosis is likely related to myeloproliferative disorder. Stool OB was negative. Lipase was within normal limits. Stable transaminase and elevated total direct bilirubin, which are trending down. Abdominal ultrasound revealed marked splenomegaly. No ascites. Splenomegaly is likely due to the myeloproliferative disorder. The patient was on PPI. Bowel regimen was instituted. The patient was counseled on high-fiber diet. Bottom Saw Operator followed. Bottom Saw Operator review peripheral blood smear. The patient had a blast 1 to 5 peripherally circulated. Platelets were trending down. Heparin was discontinued. Venous duplex of bilateral lower extremity was negative. SCDs were applied for prophylaxis. Blood pressure was managed with a calcium channel keerthi and was stable. However, the patient decided to sign against medical advice. He had an appointment and could miss it. Regarding his health, he stated that nothing is wrong with his care, but he does not want to miss his appointment. The patient was informed about the risks and consequences of signing against medical advice. The patient nevertheless insisted and sign against medical advice form. FINAL DIAGNOSES: Include, 1. Progressive pancytopenia. 2. Myeloproliferative disorder. 3. History of bone marrow fibrosis. 4. Abdominal pain. 5. Thrombocytopenia. 6. Anemia status post blood transfusion. 7. Paraplegia. 8. Neurogenic bladder. 9. Constipation. 10. Hypertension. 11. History of colon cancer. Annita Olivarez M.D. I have been assigned to dictate discharge summary on this account and I was not involved in the patient's management. Danuta Garciast. [facility] shoreRain NJoanPJoan DR: ALBARO JOB#: [id number] CC:
== END 2016-08-08 13:45 | disposition left against medical advice (07) | DRG 660 ==
LOC: EMR 10:49 → 4W 12:33 → EDBEDREQ 15:05
PROC: 30233N1 Transfusion of Nonautologous Red Blood Cells into Peripheral Vein, Percutaneous Approach (ICD-10-PCS; principal; 2016-08-06)
PROC: 02HV33Z Insertion of Infusion Device into Superior Vena Cava, Percutaneous Approach (ICD-10-PCS; 2016-08-06)
DX: D61.818 Other pancytopenia (principal); G82.20 Paraplegia, unspecified; D69.6 Thrombocytopenia, unspecified; R10.9 Unspecified abdominal pain; C94.6 Myelodysplastic disease, not elsewhere classified; N31.9 Neuromuscular dysfunction of bladder, unspecified; K59.00 Constipation, unspecified; D64.9 Anemia, unspecified; Z88.8 Allergy status to other drugs, medicaments and biological substances; D75.89 Other specified diseases of blood and blood-forming organs; Z86.010 Personal history of colon polyps
CPT/HCPCS: 36415; 36569; 76700; 76937; 80048; 80053; 80150; 80300; 81003; 82150; 82248; 82270; 83540; 83550; 83615; 83690; 83735; 85007; 85025; 85060; 85610; 85730; 85810; 86850; 86880; 86900; 86901; 86920; 87081; J2765